=== PATIENT | female | born 1955 | race American Indian/Alaskan Native ===

== ENCOUNTER 2021-07-31 09:05 | Inpatient (IN) | payer MEDICARE ==
--- NOTE | 2021-07-31 09:57 | Emergency Department Report ---
HPI - General Chief Complaint: Dyspnea/Respdistress Time Seen by Provider: 07/31/21 09:28 - HPI HPI: 65-year-old -[place] female presents to the emergency department via EMS from home with complaint of shortness of breath. Patient says that she has been "sick" for a week with some upper respiratory type symptoms. She is not vaccinated against COVID-19. The patient arrives to our emergency department with a room air pulse ox of 84% and increased work of breathing. She has a past medical history of hypertension, oth-hmgjwyl-sassszrbq diabetes, and remote right-sided breast cancer. She has not taken anything for symptoms prior to presentation. She denies any tobacco or illicit drug use. She denies any fever, lower extremity swelling, chest pain. No recent travel or sick contacts at home. ED Past Medical Hx - Past Medical History Hx Hypertension: Yes Hx Congestive Heart Failure: Yes Hx Diabetes: Yes Hx Arthritis: Yes (RA) Additional medical history: Afib, Sleep apnea, - Surgical History Hx Cholecystectomy: Yes Additional Surgical History: Hysterectomy, x2, mastectomy - Social History Smoking Status: Unknown if ever smoked - Medications Home Medications: Home Medications Medication Instructions Recorded Confirmed Last Taken Type Ciprofloxacin HCl [Ciprofloxacin 500 mg PO BID #14 tablet 08/20/13 Unknown Rx TAB] Cyclobenzaprine [Flexeril] 10 mg PO TID PRN 08/20/13 08/20/13 Unknown History Fluconazole [Diflucan] 50 mg PO QDAY #3 tablet 08/20/13 Unknown Rx Insulin NPH/Regular [Novolin 70/30] 15 unit SQ BID #2 vial 08/20/13 Unknown Rx Naproxen [Naprosyn] 500 mg PO BID 08/20/13 08/20/13 Unknown History Nystatin [Nystop Powder] 0 gm TP QDAY #50 gm 08/20/13 Unknown Rx amLODIPine [Norvasc] 10 mg PO DAILY #60 tab 08/20/13 Unknown Rx traMADoL [Ultram] 50 mg PO Q4HR PRN 08/20/13 08/20/13 Unknown History ED Review of Systems ROS: Stated complaint: SOB Other details as noted in HPI Comment: All other systems reviewed and negative Constitutional: denies: chills, fever Eyes: denies: eye pain, vision change ENT: denies: ear pain, throat pain Respiratory: shortness of breath, SOB with exertion Cardiovascular: denies: chest pain, edema Gastrointestinal: nausea. denies: abdominal pain Genitourinary: denies: dysuria, discharge Musculoskeletal: denies: back pain, arthralgia Skin: denies: rash, lesions Neurological: denies: headache, weakness Physical Exam - Physical Exam Vital Signs: Vital Signs 07/31/21 07/31/21 09:10 09:34 Temperature 98.7 F Pulse Rate 113 H 101 H Respiratory 22 59 H Rate Blood Pressure 188/122 [Left] O2 Sat by Pulse 97 Oximetry Physical Exam: GENERAL: The patient is well-developed well-nourished. HENT: Normocephalic. Atraumatic. Patient has moist mucous membranes. EYES: Extraocular motions are intact. ual reactive to light bilaterally. NECK: Supple. Trachea is midline. CHEST/LUNGS: Rhonchi heard throughout the chest. There is tachypnea, accessory muscle use and conversational dyspnea. HEART/CARDIOVASCULAR: Regular. There is mild tachycardia. There is no murmur. ABDOMEN: Abdomen is soft, nontender. Patient has normal bowel sounds. Morbidly obese habitus. SKIN: Skin is warm and dry. NEURO: The patient is awake, alert, and oriented. The patient has no focal neurologic deficits. MUSCULOSKELETAL: There is no tenderness or deformity. There is no limitation range of motion. ED Course Vital Signs 07/31/21 07/31/21 09:10 09:34 Temperature 98.7 F Pulse Rate 113 H 101 H Respiratory 22 59 H Rate Blood Pressure 188/122 [Left] O2 Sat by Pulse 97 Oximetry - ABG Interpretation Ph: 7.35 PCO2: 41 PO2: 62 Bicarbonate: 90 Interpretation: other (Hypoxemia) - Intubation Time Out Performed: Yes Sedative: Etomidate Mg Given: 20 Paralytic: Succinylcholine Mg Given: 120 Laryngoscope: other (Jay scope) Size: 4 ET Tube Size: 7.5 Tube Secured Depth (cm): 24 Tube Secured Location: lips Tube Placement Confirmation: visualized tube passing t, equal breath sounds bilat, confirmation by capnometr Patient Tolerated Procedure: well Intubation Complications: none ED Medical Decision Making - Lab Data Result diagrams: 07/31/21 09:27 07/31/21 09:46 Lab Results 07/31/21 07/31/21 07/31/21 Range/Units 09:27 09:27 09:46 WBC 15.5 H (4.5-11.0) K/mm3 RBC 4.86 (3.65-5.03) M/mm3 Hgb 14.5 H (10.1-14.3) gm/dl Hct 44.7 H (30.3-42.9) % MCV 92 (79-97) fl MCH 30 (28-32) pg MCHC 33 (30-34) % RDW 14.6 (13.2-15.2) % PT 17.0 H (12.2-14.9) Sec. INR 1.25 H (0.87-1.13) APTT 31.5 (24.2-36.6) Sec. D-Dimer 2619.75 H (0-234) ng/mlDDU Sodium (137-145) mmol/L Potassium (3.6-5.0) mmol/L Chloride (98-107) mmol/L Carbon Dioxide (22-30) mmol/L Anion Gap mmol/L BUN (7-17) mg/dL Creatinine (0.6-1.2) mg/dL Estimated GFR ml/min BUN/Creatinine Ratio % Glucose (65-100) mg/dL POC Glucose (70-105) mg/dL Calcium (8.4-10.2) mg/dL Ferritin (10.0-200.0) ng/mL Total Bilirubin (0.1-1.2) mg/dL AST (5-40) units/L ALT (7-56) units/L Alkaline Phosphatase (35-129) units/L Lactate Dehydrogenase (91-180) units/L Troponin T 0.069 H (0.00-0.029) ng/mL C-Reactive Protein (0.00-1.30) mg/dL NT-Pro-B Natriuret Pep (0-900) pg/mL Total Protein (6.3-8.2) g/dL Albumin (3.9-5) g/dL Albumin/Globulin Ratio % Triglycerides 235 H (2-149) mg/dL Cholesterol 125 (50-199) mg/dL LDL Cholesterol Direct 50 (50-130) mg/dL HDL Cholesterol 29 L (40-59) mg/dL Cholesterol/HDL Ratio 4.31 % 07/31/21 07/31/21 07/31/21 Range/Units 09:46 10:48 11:09 WBC (4.5-11.0) K/mm3 RBC (3.65-5.03) M/mm3 Hgb (10.1-14.3) gm/dl Hct (30.3-42.9) % MCV (79-97) fl MCH (28-32) pg MCHC (30-34) % RDW (13.2-15.2) % PT (12.2-14.9) Sec. INR (0.87-1.13) APTT (24.2-36.6) Sec. D-Dimer (0-234) ng/mlDDU Sodium 135 L (137-145) mmol/L Potassium 4.2 (3.6-5.0) mmol/L Chloride 93.6 L (98-107) mmol/L Carbon Dioxide 17 L (22-30) mmol/L Anion Gap 29 mmol/L BUN 71 H (7-17) mg/dL Creatinine 2.7 H (0.6-1.2) mg/dL Estimated GFR 21 ml/min BUN/Creatinine Ratio 26 % Glucose 468 H (65-100) mg/dL POC Glucose 458 H (70-105) mg/dL Calcium 9.9 (8.4-10.2) mg/dL Ferritin 4832.0 H (10.0-200.0) ng/mL Total Bilirubin 1.20 (0.1-1.2) mg/dL AST 79 H (5-40) units/L ALT 39 (7-56) units/L Alkaline Phosphatase 85 (35-129) units/L Lactate Dehydrogenase (91-180) units/L Troponin T (0.00-0.029) ng/mL C-Reactive Protein (0.00-1.30) mg/dL NT-Pro-B Natriuret Pep 8486 H (0-900) pg/mL Total Protein 8.1 (6.3-8.2) g/dL Albumin 3.4 L (3.9-5) g/dL Albumin/Globulin Ratio 0.7 % Triglycerides (2-149) mg/dL Cholesterol (50-199) mg/dL LDL Cholesterol Direct (50-130) mg/dL HDL Cholesterol (40-59) mg/dL Cholesterol/HDL Ratio % 07/31/21 Range/Units 11:09 WBC (4.5-11.0) K/mm3 RBC (3.65-5.03) M/mm3 Hgb (10.1-14.3) gm/dl Hct (30.3-42.9) % MCV (79-97) fl MCH (28-32) pg MCHC (30-34) % RDW (13.2-15.2) % PT (12.2-14.9) Sec. INR (0.87-1.13) APTT (24.2-36.6) Sec. D-Dimer (0-234) ng/mlDDU Sodium (137-145) mmol/L Potassium (3.6-5.0) mmol/L Chloride (98-107) mmol/L Carbon Dioxide (22-30) mmol/L Anion Gap mmol/L BUN (7-17) mg/dL Creatinine (0.6-1.2) mg/dL Estimated GFR ml/min BUN/Creatinine Ratio % Glucose (65-100) mg/dL POC Glucose (70-105) mg/dL Calcium (8.4-10.2) mg/dL Ferritin (10.0-200.0) ng/mL Total Bilirubin (0.1-1.2) mg/dL AST (5-40) units/L ALT (7-56) units/L Alkaline Phosphatase (35-129) units/L Lactate Dehydrogenase 1809 H (91-180) units/L Troponin T (0.00-0.029) ng/mL C-Reactive Protein 32.70 H (0.00-1.30) mg/dL NT-Pro-B Natriuret Pep (0-900) pg/mL Total Protein (6.3-8.2) g/dL Albumin (3.9-5) g/dL Albumin/Globulin Ratio % Triglycerides (2-149) mg/dL Cholesterol (50-199) mg/dL LDL Cholesterol Direct (50-130) mg/dL HDL Cholesterol (40-59) mg/dL Cholesterol/HDL Ratio % - EKG Data -: EKG Interpreted by N[facility] EKG shows normal: sinus rhythm (PVCs), axis, intervals (Prolonged QTC), QRS complexes (LVH), ST-T waves Rate: tachycardia (102 bpm) - EKG Data When compared to previous EKG there are: previous EKG unavailable Interpretation: other (Sinus tachycardia 102 bpm, normal axis, PVCs, low vo ltage, LVH, prolonged QTC) - Radiology Data Radiology results: image reviewed interpreted by me: Chest x-ray shows bilateral patchy pulmonary opacities concerning for pneumonia. No pneumothorax. No widened mediastinum. - Medical Decision Making This patient presents to the emergency department with a complaint of increased shortness of breath after a 1 week history of some URI symptoms. The patient immediately is seen in respiratory distress with a pulse ox in the 70s on room air, shortness of breath, conversational dyspnea, accessory muscle use. The patient was placed on BiPAP with some transient improvement in her work of breathing and oxygenation. Chest x-ray shows bilateral patchy opacities concerning for pneumonia and consistent with previously seen COVID-19 infections. Patient's labs shows mild leukocytosis of 15,000, acute kidney injury with a GFR of about 25, slightly elevated troponin, elevated proBNP, and elevated inflammatory markers such as D-dimer, LDH, CRP and ferritin levels. Patient also has hyperglycemia without diabetic ketoacidosis. She was given IV antibiotics, insulin, Decadron. The patient had an ABG that shows hypoxemia. While the patient's oxygenation i mproved on the BiPAP, the work of breathing once again worsened and she was breathing at about 60 to 70 breaths/min. For these reasons the decision was made to intubate the patient and this was done as per the procedure section. Patient will be admitted to the ICU and was accepted for admission by the hospitalist, Dr. Barth. Critical Care Time: Yes Critical care time in (mins) excluding proc time.: 35 Critical care attestation.: If time is entered above; I have spent that time in minutes in the direct care of this critically ill patient, excluding procedure time. Critical care time spent on this patient in doing her initial evaluation, multiple reevaluations, ordering and interpretation of labs and imaging, suppl emental oxygen and BiPAP management for the hypoxia/hypoxemia, IV antibiotics, IV steroids, discussion with the hospitalist and pulmonology services. This does not include the separately billable procedure of intubation. Critical Care Time: 35 minutes ED Disposition Clinical Impression: Acute hypoxemic respiratory failure, Suspected 2019 novel coronavirus infection, Hypoxemia, Acute kidney injury (RHINA) with acute tubular necrosis (ATN), NSTEMI (non-ST elevated myocardial infarction), Pneumonia CHF (congestive heart failure) Qualifiers: Heart failure chronicity: acute on chronic Disposition: 09 ADMITTED INPATIENT Is pt being admited?: Yes Condition: Critical Time of Disposition: 16:25
[2021-07-31 10:17] LABS: Albumin 3.4 g/dL (3.9-5); Calcium 9.9 mg/dL (8.4-10.2)
[2021-07-31 10:18] LABS: Hematocrit 44.7 % (30.3-42.9); Hemoglobin 14.5 gm/dl (10.1-14.3); Mean Corpuscular HGB Conc 33 % (30-34); Mean Corpuscular Volume 92 fl (79-97); Red Blood Count 4.86 M/mm3 (3.65-5.03); Red Cell Distribution Width 14.6 % (13.2-15.2)
--- NOTE | 2021-07-31 10:22 | XRay Report ---
CHEST 1 VIEW 07/31/2021 9:16 AM INDICATION / CLINICAL INFORMATION: SOB. COMPARISON: None available. FINDINGS: SUPPORT DEVICES: None. HEART / MEDIASTINUM: No significant abnormality. LUNGS / PLEURA: Multifocal airspace opacities with obscuration of the left hemidiaphragm. No pneumoth orax. ADDITIONAL FINDINGS: No significant additional findings. IMPRESSION: 1. Multifocal airspace opacities concerning for pneumonia. Signer Name: Remi Ernst DO Signed: 07/31/2021 10:18 AM Workstation Name: [id number]
[2021-07-31] MEDS ORDERED: AZITHROMYCIN/NS 500 MG/250 ML 500 MG/250 ML BAG IV ONE (10:27)
[2021-07-31] MEDS ORDERED: INSULIN REGULAR, HUMAN 100 UNITS/1 ML IV ONE (10:28)
[2021-07-31] MEDS ORDERED: dexAMETHasone 4 MG/ML VIAL IV ONE (10:28)
[2021-07-31 10:34] LABS: INR 1.25 (0.87-1.13)
[2021-07-31 10:35] LABS: Partial Thromboplastin Time 31.5 Sec. (24.2-36.6)
[2021-07-31 11:03] LABS: Chol/HDL Ratio 4.31 %
--- NOTE | 2021-07-31 11:42 | History and Physical Report ---
History of Present Illness Chief complaint: I can't breathe History of present illness: 65 YO Female with Obesity Hypoventilation Syndrome, DM, RA, Paroxysmal Atrial Fib not taking therapeutic anticoagulation, HTN, CHF presents to ED for evaluation. Patient is intubated and on ventilatory support at the time my evaluation and is unable to provide history. Patient history taken from EMS staff, ED staff, as well as patient family was made available by telephone for interview. As per family the patient has been "feeling sick" for the past week and was found to have worsening shortness of breath today. EMS was notified and upon arrival the patient was found to be in distress with a pulse oximetry of 84% on room air. Patient was treated with supplemental oxygen and transported to [facility] for further care and evaluation of the aforementioned symptoms. The patient was seen and evaluated in the emergency department. All lab and imaging studies reviewed. The patient was found to have a pulse oximetry of 82% on room air and was subsequently treated with noninvasive positive pressure ventilation without improvement in symptoms. The patient was subsequently intubated for acute hypoxemic respiratory failure. Patient also found to have concomitant sepsis secondary to pneumonia, acute kidney injury, as well as uncontrolled diabetes, as well as NSTEMI. Patient admitted to ICU due to increased risk of multiple organ dysfunction syndrome. Patient initiated on sepsis protocol, pneumonia protocol, coronavirus protocol, as well as therapeutic anticoagulation for NSTEMI. Cardiology team consulted in ED. Critical care team consulted in ED. patient found to have poor prognosis. Advanced care planning conducted in ED. No reports of fever, chills, chest pain, palpitation, skin rash, recent ill contacts. Upon further questioning it is reported that the patient is not vaccinated against COVID-19. Past History Past Medical History: atrial fib, arthritis, diabetes, heart failure, hypertension Past Surgical History: , hysterectomy, mastectomy Social history: single. denies: smoking, alcohol abuse, prescription drug abuse Family history: diabetes, hypertension Medications and Allergies Allergies Allergy/AdvReac Type Severity Reaction Status Date / Time aspirin [From Percodan] Allergy Unknown Unverified 04/09/15 11:03 oxycodone HCl [From Percodan] Allergy Unknown Unverified 04/09/15 11:03 oxycodone terephthalate Allergy Unknown Unverified 04/09/15 11:03 [From Percodan] Penicillins Allergy Unknown Verified 08/20/13 14:46 Home Medications Medication Instructions Recorded Confirmed Last Taken Type Ciprofloxacin HCl [Ciprofloxacin 500 mg PO BID #14 tablet 08/20/13 Unknown Rx TAB] Cyclobenzaprine [Flexeril] 10 mg PO TID PRN 08/20/13 08/20/13 Unknown History Fluconazole [Diflucan] 50 mg PO QDAY #3 tablet 08/20/13 Unknown Rx Insulin NPH/Regular [Novolin 70/30] 15 unit SQ BID #2 vial 08/20/13 Unknown Rx Naproxen [Naprosyn] 500 mg PO BID 08/20/13 08/20/13 Unknown History Nystatin [Nystop Powder] 0 gm TP QDAY #50 gm 08/20/13 Unknown Rx amLODIPine [Norvasc] 10 mg PO DAILY #60 tab 08/20/13 Unknown Rx traMADoL [Ultram] 50 mg PO Q4HR PRN 08/20/13 08/20/13 Unknown History Review of Systems ROS unobtainable: due to endotracheal tube, due to mental status Exam - Constitutional Vitals: Temp Pulse Resp BP Pulse Ox 98.7 F 110 H 62 H 116/80 92 07/31/21 09:10 07/31/21 11:15 07/31/21 11:15 07/31/21 11:15 07/31/21 11:15 General appearance: Present: severe distress - EENT Eyes: Present: miosis ENT: hearing decreased - Neck Neck: Present: supple, normal ROM - Respiratory Respiratory effort: labored, accessory muscle use, stridor Respiratory: bilateral: diminished, rhonchi - Cardiovascular Rhythm: irregularly irregular Heart Sounds: Present: S1 & S2. Absent: rub, click - Extremities Extremities: pulses symmetrical Extremity abnormal: edema Peripheral Pulses: abnormal (Capillary refill greater than 3.5 seconds) - Abdominal General gastrointestinal: Present: soft, non-tender, non-distended, normal bowel sounds Female genitourinary: Present: normal - Integumentary Integumentary: Present: clear, warm, dry - Musculoskeletal Musculoskeletal: generalized weakness - Psychiatric Psychiatric: no appropriate mood/affect, no intact judgment & insight, no memory intact - Neurologic Neurologic: CNII-XII intact, moves all extremities, no gait normal HEART Score - HEART Score Troponin: Troponin T 0.069 ng/mL (0.00-0.029) H 10/15/21 09:27 Results - Labs CBC & Chem 7: 07/31/21 09:27 07/31/21 09:46 Labs: Abnormal lab results 07/31/21 07/31/21 07/31/21 Range/Units 09:27 09:27 09:46 WBC 15.5 H (4.5-11.0) K/mm3 Hgb 14.5 H (10.1-14.3) gm/dl Hct 44.7 H (30.3-42.9) % PT 17.0 H (12.2-14.9) Sec. INR 1.25 H (0.87-1.13) D-Dimer 2619.75 H (0-234) ng/mlDDU Sodium (137-145) mmol/L Chloride (98-107) mmol/L Carbon Dioxide (22-30) mmol/L BUN (7-17) mg/dL Creatinine (0.6-1.2) mg/dL Glucose (65-100) mg/dL POC Glucose (70-105) mg/dL AST (5-40) units/L Troponin T 0.069 H (0.00-0.029) ng/mL NT-Pro-B Natriuret Pep (0-900) pg/mL Albumin (3.9-5) g/dL Triglycerides 235 H (2-149) mg/dL HDL Cholesterol 29 L (40-59) mg/dL 07/31/21 07/31/21 Range/Units 09:46 10:48 WBC (4.5-11.0) K/mm3 Hgb (10.1-14.3) gm/dl Hct (30.3-42.9) % PT (12.2-14.9) Sec. INR (0.87-1.13) D-Dimer (0-234) ng/mlDDU Sodium 135 L (137-145) mmol/L Chloride 93.6 L (98-107) mmol/L Carbon Dioxide 17 L (22-30) mmol/L BUN 71 H (7-17) mg/dL Creatinine 2.7 H (0.6-1.2) mg/dL Glucose 468 H (65-100) mg/dL POC Glucose 458 H (70-105) mg/dL AST 79 H (5-40) units/L Troponin T (0.00-0.029) ng/mL NT-Pro-B Natriuret Pep 8486 H (0-900) pg/mL Albumin 3.4 L (3.9-5) g/dL Triglycerides (2-149) mg/dL HDL Cholesterol (40-59) mg/dL Assessment and Plan - Patient Problems (1) Sepsis Current Visit: Yes Status: Acute Plan to address problem: Sepsis protocol: Chest x-ray, CBC, CMP, urinalysis, IV antibiotic therapy, IV fluid resuscitation therapy, monitor urine output every shift, monitor fluid balance, maintain mean arterial pressure greater than or equal to 65, IV pressor support as clinically indicated, serial lactic acid level. The high probability of a clinically significant, sudden or life threatening deterioration of the [cardiac, pulmonary, renal, infectious disease, neuro] system(s) required my full and direct attention, intervention and personal management. The aggregate critical care time was [90] minutes. This time is in addition to time spent performing reported procedures but includes the following: [x] Data Review and interpretation [x] Patient assessment and monitoring of vital signs [x] Documentation [x] Medication orders and management (2) Acute hypoxemic respiratory failure Current Visit: Yes Status: Acute Plan to address problem: Chest x-ray, supplemental oxygen, pulse oximetry, patient intubated and on ventilatory support, wean vent as tolerated, daily spontaneous breathing trial, sedation holiday daily, ABG daily. (3) NSTEMI (non-ST elevated myocardial infarction) Current Visit: Yes Status: Acute Plan to address problem: Cardiology team consulted, therapeutic anticoagulation, further care and evaluation as per cardiology team. Echocardiogram ordered and pending at time of admission. (4) Pneumonia Current Visit: Yes Status: Acute Plan to address problem: Pneumonia protocol: Chest x-ray, CBC, CMP, IV antibiotic therapy, supplemental oxygen, pulse oximetry, blood culture. (5) Suspected 2019 novel coronavirus infection Current Visit: Yes Status: Acute Plan to address problem: Coronavirus protocol: IV steroid therapy, IV antibiotic therapy, supplemental oxygen, pulse oximetry, vitamin D therapy, vitamin C therapy, zinc therapy, therapeutic anticoagulation. (6) Acute kidney injury (RHINA) with acute tubular necrosis (ATN) Current Visit: Yes Status: Acute Plan to address problem: IV fluid resuscitation therapy, monitor urine output every shift, BMP, repeat BMP in a.m. to monitor serum creatinine as well as GFR. (7) CHF (congestive heart failure) Current Visit: Yes Status: Acute Qualifiers: Heart failure chronicity: acute on chronic Plan to address problem: Strict I/O, BMP, monitor urine output every shift, afterload reduction, blood pressure control, inotropic support as clinically indicated. Cardiology team consulted, echocardiogram ordered and is pending at time of admission. (8) DVT prophylaxis Current Visit: Yes Status: Acute Plan to address problem: SCD to bilateral lower extremities while in bed, therapeutic anticoagulation. (9) COVID-19 vaccination not done Current Visit: Yes Status: Acute Plan to address problem: Counseling completed. Patient high risk status discussed. (10) Advance care planning Current Visit: Yes Status: Acute Plan to address problem: Disease education conducted, care plan discussed, diagnoses discussed, prognosis discussed. Patient family knowledges poor prognosis and understand agree with care plan, patient is full code, +30 minutes.
[2021-07-31] MEDS ORDERED: ALBUTEROL 2.5 MG/3 ML NEBU IH PRN (11:44)
[2021-07-31] MEDS ORDERED: ONDANSETRON 4 MG/2 ML INJ IV PRN (11:44)
[2021-07-31] MEDS ORDERED: HYDROmorphone 1 MG/1 ML INJ IV PRN (11:44)
[2021-07-31] MEDS ORDERED: oxyCODONE /ACETAMINOPHEN 5-325MG TAB PO PRN (11:44)
[2021-07-31] MEDS ORDERED: ACETAMINOPHEN 325 MG TAB PO PRN ×2 (11:44)
[2021-07-31] MEDS ORDERED: SODIUM CHLORIDE 0.9% 1000 ML IV SOLN IV ONE (11:44)
[2021-07-31 11:53] LABS: C-Reactive Protein 32.7 mg/dL (0.00-1.30)
[2021-07-31] MEDS ORDERED: CYCLOBENZAPRINE 10 MG TAB PO PRN (12:00)
[2021-07-31 13:17] LABS: ABG HCO3 22.4 mmol/L (20.0-26.0); ABG Methemoglobin 0.6 % (0.0-1.5); ABG PCO2 41.5 mm Hg; ABG PH 7.351 pH Units (7.350-7.450); ABG PO2 62.5 mm Hg (80.0-90.0)
[2021-07-31] MEDS: methylPREDNISolone Sod Succinate 40 MG/1 ML INJ IV SCH ×2 (14:43→22:38)
[2021-07-31] MEDS ORDERED: KETAMINE 500 MG/5 ML VIAL MDV ONE (15:07)
[2021-07-31] MEDS ORDERED: ETOMIDATE 20 MG/10 ML INJ IV ONE ×2 (15:09→15:29)
[2021-07-31] MEDS ORDERED: SUCCINYLCHOLINE CHLORIDE 200 MG/10 ML INJ MDV ONE (15:09)
[2021-07-31] MEDS ORDERED: LIP THERAPY VASELINE TP PRN (15:23)
[2021-07-31] MEDS ORDERED: MINERAL OIL/PETROLATUM, WHITE OPHTH OINT 3.5 GM OU PRN (15:23)
[2021-07-31] MEDS ORDERED: MIDAZOLAM 2 MG/2 ML INJ IV PRN (15:23)
[2021-07-31] MEDS ORDERED: SUCCINYLCHOLINE CHLORIDE 200 MG/10 ML INJ MDV IV ONE (15:30)
[2021-07-31] MEDS ORDERED: MIDAZOLAM 5 MG/5 ML INJ MDV IV ONE (15:33)
[2021-07-31] MEDS ORDERED: HEPARIN 10,000 UNITS/10 ML VIAL IV ONE (15:35)
[2021-07-31] MEDS ORDERED: HEPARIN 10,000 UNITS/10 ML VIAL IV PRN (15:35)
--- NOTE | 2021-07-31 15:42 | Consultation ---
History of Present Illness Consult date: 07/31/21 Requesting physician: JACOB RAINES Reason for consult: other (critical care management, acute hypoxic resp failure, Possible COVID, bilateral pneumonia) History of present illness: 65-year-old female past medical history obesity, diabetes, rheumatoid arthritis, paroxysmal A. fib noton therapeutic anticoagulation,, CHF presented to hospital after feeling unwell for the past week with worsening shortness of breath. She is in respiratopry distress on BIPAP via FFM, history is obtained from review of the medical records and from the ED physician. She is not vaccinated against Covid. HISTORY PER MEDICAL RECORDS As per family the patient has been "feeling sick" for the past week and was f ound to have worsening shortness of breath today. EMS was notified and upon arrival the patient was found to be in distress with a pulse oximetry of 84% on room air. Patient was treated with supplemental oxygen and transported to [facility] for further care and evaluation of the aforementioned symptoms. The patient was seen and evaluated in the emergency department. All lab and imaging studies reviewed. The patient was found to have a pulse oximetry of 82% on room air and was subsequently treated with noninvasive positive pressure ventilation without improvement in symptoms. Patient also found to have concomitant sepsis secondary to pneumonia, acute kidney injury, as well as uncontrolled diabetes, as well as NSTEMI. Patient admitted to ICU due to increased risk of multiple organ dysfunction syndrome. Patient initiated on sepsis protocol, pneumonia protocol, coronavirus protocol, as well as therapeutic anticoagulation for NSTEMI. No reports of fever, chills, chest pain, palpitation, skin rash, recent ill contacts. Upon further questioning it is reported that the patient is not vacci nated against COVID-19. Afebrile, tachycardic, tachypneic. White count 15.5. Covid PCR pending. Decreased renal function with estimated GFR 21. Blood cultures no growth so far. Currently on Levofloxacin and methylprednisolone. Elevated inflammatory markers. Unable to obtain review of systems, patient is in respiratory distress and NIPPV Imaging personally reviewed: Chest x-ray: Multifocal airspace disease, low lung volumes Past History Past Medical History: arthritis, diabetes Medications and Allergies Allergies Allergy/AdvReac Type Severity Reaction Status Date / Time aspirin [From Percodan] Allergy Unknown Unverified 04/09/15 11:03 oxycodone HCl [From Percodan] Allergy Unknown Verified 08/01/21 11:12 oxycodone terephthalate Allergy Unknown Verified 08/01/21 11:12 [From Percodan] Penicillins Allergy Unknown Verified 08/20/13 14:46 Home Medications Medication Instructions Recorded Confirmed Last Taken Type Ciprofloxacin HCl [Ciprofloxacin 500 mg PO BID #14 tablet 08/20/13 Unknown Rx TAB] Cyclobenzaprine [Flexeril] 10 mg PO TID PRN 08/20/13 08/20/13 Unknown History Fluconazole [Diflucan] 50 mg PO QDAY #3 tablet 08/20/13 Unknown Rx Insulin NPH/Regular [Novolin 70/30] 15 unit SQ BID #2 vial 08/20/13 Unknown Rx Naproxen [Naprosyn] 500 mg PO BID 08/20/13 08/20/13 Unknown History Nystatin [Nystop Powder] 0 gm TP QDAY #50 gm 08/20/13 Unknown Rx amLODIPine [Norvasc] 10 mg PO DAILY #60 tab 08/20/13 Unknown Rx traMADoL [Ultram] 50 mg PO Q4HR PRN 08/20/13 08/20/13 Unknown History Active Meds: Active Medications Acetaminophen (Acetaminophen 325 Mg Tab) 650 mg PO Q4H PRN PRN Reason: Pain MILD(1-3)/Fever >100.5/PIERCE Albuterol (Albuterol 2.5 Mg/3 Ml Nebu) 2.5 mg IH Q4HRT PRN PRN Reason: Shortness Of Breath Ascorbic Acid (Ascorbic Acid 500 Mg Tab) 500 mg PO BID [facility] Cholecalciferol (Cholecalciferol (Vit D3) 400 Unit Tab) 1,000 unit PO QDAY [facility] Cyclobenzaprine HCl (Cyclobenzaprine 10 Mg Tab) 10 mg PO TID PRN PRN Reason: MUSCLE PAIN/SPASMS Famotidine (Famotidine 20 Mg/2 Ml Inj) 20 mg IV BID [facility] Heparin Sodium (Porcine) (Heparin 10,000 Units/10 Ml Vial) 6,800 unit 60 u nit/kg (6800 unit) IV ONCE ONE Stop: 07/31/21 15:36 Heparin Sodium (Porcine) (Heparin 10,000 Units/10 Ml Vial) 4,500 unit 40 unit/kg (4500 unit) IV Q6H PRN PRN Reason: Anti-Xa Assay < 0.1 units/ml Hydromorphone HCl (Hydromorphone 1 Mg/1 Ml Inj) 0.25 mg IV Q4H PRN PRN Reason: Pain, Moderate (4-6) Hydromorphone HCl (Hydromorphone 1 Mg/1 Ml Inj) 0.5 mg IV Q23H PRN PRN Reason: Pain , Severe (7-10) Hydrophilic Ointment (Lip Therapy Vaseline) 1 applic TP Q2HR PRN PRN Reason: Dry Lips Levofloxacin/Dextrose (Levaquin 750mg/150ml) 750 mg in 150 mls @ 100 mls/hr IV Q48H TRISTEN; Protocol Sodium Chloride (Nacl 0.9% 1000 Ml) 1,000 mls @ 100 mls/hr IV DIRECT [facility]ST[facility] Heparin Sodium/Sodium Chloride (Heparin/ 0.45% Nacl-25,000 Unit/500 Ml) 25,000 unit in 500 mls @ 34.019 mls/hr IV TITRATE TRISTEN; Protocol Propofol (Diprivan 10 Mg/Ml) 1,000 mg in 100 mls @ 3.402 mls/hr IV TITR TRISTEN; Protocol Methylprednisolone Sodium Succinate (Methylprednisolone Sod Succinate 40 Mg/1 Ml Inj) 40 mg IV Q8HR TRISTEN Last Admin: 07/31/21 14:43 Dose: 40 mg Documented by: Multi-Ingred Cream/Lotion/Oil/Oint (Mineral Oil/Petrolatum, White Ophth Oint 3.5 Gm) 1 applic OU Q4HR PRN PRN Reason: Dry Eye(s) Ondansetron HCl (Ondansetron 4 Mg/2 Ml Inj) 4 mg IV Q8H PRN PRN Reason: Nausea And Vomiting Oxycodone/Acetaminophen (Oxycodone /Acetaminophen 5-325mg Tab) 1 tab PO Q16H PRN PRN Reason: Pain, Moderate (4-6) Senna/Docusate Sodium (Sennosides/Docusate Sodium 8.6/50 Mg Tab) 1 tab FEEDTUBE BID [facility] Sodium Chloride (Sodium Chloride 0.9% 10 Ml Flush Syringe) 10 ml IV BID [facility] Sodium Chloride (Sodium Chloride 0.9% 10 Ml Flush Syringe) 10 ml IV PRN PRN PRN Reason: LINE FLUSH Zinc Sulfate (Zinc Sulfate 220 Mg Cap) 220 mg PO BID [facility] Physical Examination Vital signs: Vital Signs Temp Pulse Resp BP Pulse Ox 98.7 F 113 H 22 188/122 97 07/31/21 09:10 07/31/21 09:10 07/31/21 09:10 07/31/21 09:10 07/31/21 09:10 General appearance: appears uncomfortable, other (moderate distress, abdominal breathing on NIPPV via FFM) Eyes: non-icteric Neck: supple, no lymphadenopathy, no JVD, other (short neck) Effort: very labored Ascultation: Bilateral: diminished breath sounds, rhonchi Cardiovascular: irregular rhythm, other (S1,S2) Gastrointestinal: normoactive bowel sounds, soft, non-tender, non-distended Integumentary: normal Extremities: no cyanosis, no edema Musculoskeletal: no deformities non-focal exam, pupils equal and round anxious Results - Laboratory Findings CBC and BMP: 08/02/21 03:49 08/02/21 03:49 ABG ABG pH 7.351 pH Units (7.350-7.450) 07/31/21 13:03 ABG pCO2 41.5 mm Hg 07/31/21 13:03 ABG pO2 62.5 mm Hg (80.0-90.0) L 07/31/21 13:03 ABG O2 Saturation 90.0 % (95.0-99.0) L 07/31/21 13:03 PT/INR, D-dimer PT 17.0 Sec. (12.2-14.9) H 07/31/21 09:46 INR 1.25 (0.87-1.13) H 07/31/21 09:46 D-Dimer 2619.75 ng/mlDDU (0-234) H 07/31/21 09:46 Abnormal lab findings: Abnormal Labs 07/31/21 07/31/21 07/31/21 09:27 09:27 09:46 WBC 15.5 H Hgb 14.5 H Hct 44.7 H PT 17.0 H INR 1.25 H D-Dimer 2619.75 H ABG pO2 ABG O2 Saturation ABG Base Excess Oxyhemoglobin Sodium Chloride Carbon Dioxide BUN Creatinine Glucose POC Glucose Ferritin AST Lactate Dehydrogenase Troponin T 0.069 H C-Reactive Protein NT-Pro-B Natriuret Pep Albumin Triglycerides 235 H HDL Cholesterol 29 L 07/31/21 07/31/21 07/31/21 09:46 10:48 11:09 WBC Hgb Hct PT INR D-Dimer ABG pO2 ABG O2 Saturation ABG Base Excess Oxyhemoglobin Sodium 135 L Chloride 93.6 L Carbon Dioxide 17 L BUN 71 H Creatinine 2.7 H Glucose 468 H POC Glucose 458 H Ferritin 4832.0 H AST 79 H Lactate Dehydrogenase Troponin T C-Reactive Protein NT-Pro-B Natriuret Pep 8486 H Albumin 3.4 L Triglycerides HDL Cholesterol 07/31/21 07/31/21 11:09 13:03 WBC Hgb Hct PT INR D-Dimer ABG pO2 62.5 L ABG O2 Saturation 90.0 L ABG Base Excess -3.0 L Oxyhemoglobin 88.3 L Sodium Chloride Carbon Dioxide BUN Creatinine Glucose POC Glucose Ferritin AST Lactate Dehydrogenase 1809 H Troponin T C-Reactive Protein 32.70 H NT-Pro-B Natriuret Pep Albumin Triglycerides HDL Cholesterol - Diagnostic Findings Chest x-ray: image reviewed Assessment and Plan Acute hypoxemic respiratory failure Bilateral pneumonia, Sepsis Acute renal failure, unknown baseline GFR/Creatinine NSTEMI- possible type 2 ischemia Obesity PUI-COVID Discussion -The patient is in moderate respiratory distress, with abdominal breathing, tachypnic RR > 35 on NIPPV. Discussed with the ED physician, and I called the patient's daughter Giovanni Jordan( [phone]) who is listed as emergency contact. The patient needs oral intubation and mechanical ventilatory support. The patient's daughter verbalized understanding and all her questions were answered. -Patient is to continue airborne and contact isolation for presumed COVID infection, while awaiting COVID PCR -Add azithromycin to Levofloxacin fro severe CAP, patient has a documented Penicillin allergy. Recommendations -Sepsis protocol: Chest x-ray, CBC, CMP, urinalysis, IV antibiotic therapy, IV fluid resuscitation therapy, monitor urine output every shift, monitor fluid balance, maintain mean arterial pressure greater than or equal to 65, IV pressor support as clinically indicated, serial lactic acid level. - Place Asher catheter for accurate intake and output in critically ill patient Once intubated - VAP bundle , (HOB > 40 degrees) - glycemic control with SSI for target BG 140-180 mg while critically ill; avoid hypoglycemia -Place OGT/NGT fro enteric nutritional support - Lung protective strategies - bronchodilators with pulmonary hygiene per RT - avoid nephrotoxins, renally dose all medications. Avoid NSAIDs - prn analgesia per CPOT pain score -Sedation with Fentanyl/Propofol, titrate to RASS -1 to -2 - Maintenance of sleep-wake cycle, avoid delirium - supportive transfusions for serum Hb < 7.0g/dl - Stress ulcer prophylaxis- Famotidine -VTE prophylaxis- therapeutic heparin ordered by Cardiology for NSTEMI/paroxysmal Atrial fibrillation - mobility protocols for pressure ulcer prevention - Monitor hemodynamics closely COVID SPECIFIC INTERVENTIONS -systemic steroids empirically - follow COVID tests results - Continue contact and airborne isolation CONDITION: CRITICAL PROGNOSIS: GUARDED CODE STATUS: FULL CODE The high probability of a clinically significant, sudden or life-threatening deterioration of the [respiratory, cardiovascular, renal ] system(s) required my full and direct attention, intervention and personal management. The aggregate critical care time was [75] minutes without overlap. Time includes spent on; [x] Data Review and interpretation [x] Patient assessment and monitoring of vital signs [x] Documentation [x] Medication orders and management
[2021-07-31] MEDS ORDERED: DEXTROSE 50% IN WATER (25GM) 50 ML SYRINGE IV PRN (16:00)
[2021-07-31] MEDS ORDERED: MIDAZOLAM 100 MG in SODIUM CHLORIDE 0.9% 80 ML IV SCH (16:00)
--- NOTE | 2021-07-31 16:05 | Consultation ---
History of Present Illness Consult date: 07/31/21 Requesting physician: JACOB RAINES Consult reason: congestive heart failure History of present illness: Patient is 65-year-old female with Obesity Hypoventilation Syndrome, DM, RA, Paroxysmal Atrial Fib not taking therapeutic anticoagulation, HTN, CHF who presents to the ED with a complaint of feeling sick and increasing shortness of for the past week. History is taken per per the chart due to patient being intubated at time of interview. Per documentation EMS found the patient to be in respiratory distress with a pulse ox of 84% patient was transferred to [facility]. ED work-up found the patient to be sepsis secondary to pneumonia RHINA and elevated troponins and elevated BNP. Patient is a PUI. Patient was previously unknown to our practice. Cardiology was consulted for heart failure Past History Past Medical History: atrial fib, arthritis, diabetes, heart failure, hypertension Past Surgical History: , hysterectomy, mastectomy Social history: single. denies: smoking, alcohol abuse, prescription drug abuse Family history: diabetes, hypertension Medications and Allergies Allergies Allergy/AdvReac Type Severity Reaction Status Date / Time aspirin [From Percodan] Allergy Unknown Unverified 04/09/15 11:03 oxycodone HCl [From Percodan] Allergy Unknown Unverified 04/09/15 11:03 oxycodone terephthalate Allergy Unknown Unverified 04/09/15 11:03 [From Percodan] Penicillins Allergy Unknown Verified 08/20/13 14:46 Home Medications Medication Instructions Recorded Confirmed Last Taken Type Ciprofloxacin HCl [Ciprofloxacin 500 mg PO BID #14 tablet 08/20/13 Unknown Rx TAB] Cyclobenzaprine [Flexeril] 10 mg PO TID PRN 08/20/13 08/20/13 Unknown History Fluconazole [Diflucan] 50 mg PO QDAY #3 tablet 08/20/13 Unknown Rx Insulin NPH/Regular [Novolin 70/30] 15 unit SQ BID #2 vial 08/20/13 Unknown Rx Naproxen [Naprosyn] 500 mg PO BID 08/20/13 08/20/13 Unknown History Nystatin [Nystop Powder] 0 gm TP QDAY #50 gm 08/20/13 Unknown Rx amLODIPine [Norvasc] 10 mg PO DAILY #60 tab 08/20/13 Unknown Rx traMADoL [Ultram] 50 mg PO Q4HR PRN 08/20/13 08/20/13 Unknown History Active Meds: Active Medications Acetaminophen (Acetaminophen 325 Mg Tab) 650 mg PO Q4H PRN PRN Reason: Pain MILD(1-3)/Fever >100.5/PIERCE Albuterol (Albuterol 2.5 Mg/3 Ml Nebu) 2.5 mg IH Q4HRT PRN PRN Reason: Shortness Of Breath Ascorbic Acid (Ascorbic Acid 500 Mg Tab) 500 mg PO BID [facility] Cholecalciferol (Cholecalciferol (Vit D3) 400 Unit Tab) 1,000 unit PO QDAY [facility] Cyclobenzaprine HCl (Cyclobenzaprine 10 Mg Tab) 10 mg PO TID PRN PRN Reason: MUSCLE PAIN/SPASMS Dextrose (Dextrose 50% In Water (25gm) 50 Ml Syringe) 50 ml IV Q30MIN PRN; Protocol PRN Reason: Hypoglycemia Famotidine (Famotidine 20 Mg/2 Ml Inj) 20 mg IV BID [facility] Heparin Sodium (Porcine) (Heparin 10,000 Units/10 Ml Vial) 4,500 unit 40 unit/k g (4500 unit) IV Q6H PRN PRN Reason: Anti-Xa Assay < 0.1 units/ml Hydromorphone HCl (Hydromorphone 1 Mg/1 Ml Inj) 0.25 mg IV Q4H PRN PRN Reason: Pain, Moderate (4-6) Hydromorphone HCl (Hydromorphone 1 Mg/1 Ml Inj) 0.5 mg IV Q23H PRN PRN Reason: Pain , Severe (7-10) Hydrophilic Ointment (Lip Therapy Vaseline) 1 applic TP Q2HR PRN PRN Reason: Dry Lips Levofloxacin/Dextrose (Levaquin 750mg/150ml) 750 mg in 150 mls @ 100 mls/hr IV Q48H TRISTEN; Protocol Sodium Chloride (Nacl 0.9% 1000 Ml) 1,000 mls @ 100 mls/hr IV DIRECT [facility] Heparin Sodium/Sodium Chloride (Heparin/ 0.45% Nacl-25,000 Unit/500 Ml) 25,000 unit in 500 mls @ 20 mls/hr IV TITRATE [facility]ST[facility]; Protocol Propofol (Diprivan 10 Mg/Ml) 1,000 mg in 100 mls @ 3.402 mls/hr IV TITR TRISTEN; Protocol Insulin Human Lispro (Insulin Lispro 100 Unit/Ml) 0 unit SUB-Q Q6HR TRISTEN; Protocol Methylprednisolone Sodium Succinate (Methylprednisolone Sod Succinate 40 Mg/1 Ml Inj) 40 mg IV Q8HR TRISTEN Last Admin: 07/31/21 14:43 Dose: 40 mg Documented by: Multi-Ingred Cream/Lotion/Oil/Oint (Mineral Oil/Petrolatum, White Ophth Oint 3.5 Gm) 1 applic OU Q4HR PRN PRN Reason: Dry Eye(s) Ondansetron HCl (Ondansetron 4 Mg/2 Ml Inj) 4 mg IV Q8H PRN PRN Reason: Nausea And Vomiting Oxycodone/Acetaminophen (Oxycodone /Acetaminophen 5-325mg Tab) 1 tab PO Q16H PRN PRN Reason: Pain, Moderate (4-6) Senna/Docusate Sodium (Sennosides/Docusate Sodium 8.6/50 Mg Tab) 1 tab FEEDTUBE BID [facility] Sodium Chloride (Sodium Chloride 0.9% 10 Ml Flush Syringe) 10 ml IV BID [facility] Sodium Chloride (Sodium Chloride 0.9% 10 Ml Flush Syringe) 10 ml IV PRN PRN PRN Reason: LINE FLUSH Zinc Sulfate (Zinc Sulfate 220 Mg Cap) 220 mg PO BID [facility] Review of Systems ROS unobtainable: due to endotracheal tube Physical Examination Vital Signs Temp Pulse Resp BP Pulse Ox 98.7 F 113 H 22 188/122 97 07/31/21 09:10 07/31/21 09:10 07/31/21 09:10 07/31/21 09:10 07/31/21 09:10 General appearance: other (intubated ) HEENT: Positive: PERRL Cardiac: Positive: Regular Rhythm, Tachycardia Lungs: Positive: Ventilated Respirations Neuro: Positive: Other (unabel to asess) Abdomen: Positive: Soft Skin: Negative: Rash, Suspicious Lesions, Ulceration Extremities: Present: upper extr. pulses, lower extr. pulses Results 07/31/21 09:27 07/31/21 09:46 Cardiac Enzymes 07/31/21 07/31/21 Range/Units 09:46 11:09 AST 79 H (5-40) units/L Lactate Dehydrogenase 1809 H (91-180) units/L Coagulation 07/31/21 Range/Units 09:46 PT 17.0 H (12.2-14.9) Sec. INR 1.25 H (0.87-1.13) APTT 31.5 (24.2-36.6) Sec. Lipids 07/31/21 Range/Units 09:27 Triglycerides 235 H (2-149) mg/dL Cholesterol 125 (50-199) mg/dL HDL Cholesterol 29 L (40-59) mg/dL Cholesterol/HDL Ratio 4.31 % CBC 07/31/21 Range/Units 09:27 WBC 15.5 H (4.5-11.0) K/mm3 RBC 4.86 (3.65-5.03) M/mm3 Hgb 14.5 H (10.1-14.3) gm/dl Hct 44.7 H (30.3-42.9) % Comprehensive Metabolic Panel 07/31/21 Range/Units 09:46 Sodium 135 L (137-145) mmol/L Potassium 4.2 (3.6-5.0) mmol/L Chloride 93.6 L (98-107) mmol/L Carbon Dioxide 17 L (22-30) mmol/L BUN 71 H (7-17) mg/dL Creatinine 2.7 H (0.6-1.2) mg/dL Glucose 468 H (65-100) mg/dL Calcium 9.9 (8.4-10.2) mg/dL AST 79 H (5-40) units/L ALT 39 (7-56) units/L Alkaline Phosphatase 85 (35-129) units/L Total Protein 8.1 (6.3-8.2) g/dL Albumin 3.4 L (3.9-5) g/dL - Imaging and Cardiology Echo: pending EKG interpretations - Telemetry EKG Rhythm: Sinus Tachycardia - EKG Sinus rhythms and dysrhythmias: sinus tachycardia Ventricular dysrhythmias: ventricular premature com Assessment and Plan EKG shows sinus tach probable LVH PVCs no acute ischemic changes Troponins and BNP noted to be elevated Elevated D-dimer noted Covid PCR pending Echo pending. Heparin drip for anticoagulation Recommend IV fluids due to RHINA, sepsis, and low BPs recommend heparin drip for anticoagulation Patient seen in conjunction with Dr. Clay who agrees with plan of care. Will continue to follow - Patient Problems (1) Acute hypoxemic respiratory failure Current Visit: Yes Status: Acute (2) Acute kidney injury (RHINA) with acute tubular necrosis (ATN) Current Visit: Yes Status: Acute (3) CHF (congestive heart failure) Current Visit: Yes Status: Acute Qualifiers: Heart failure chronicity: acute on chronic (4) NSTEMI (non-ST elevated myocardial infarction) Current Visit: Yes Status: Acute (5) Pneumonia Current Visit: Yes Status: Acute (6) Sepsis Current Visit: Yes Status: Acute (7) Suspected 2019 novel coronavirus infection Current Visit: Yes Status: Acute
--- NOTE | 2021-07-31 16:10 | Consultation ---
History of Present Illness - Reason for Consult Consult date: 07/31/21 - History of Present Illness 65-year-old female past medical history obesity, diabetes, rheumatoid arthritis, paroxysmal A. fib, CHF presented to hospital after feeling unwell for the past week with worsening shortness of breath. She is currently debated and sedated, especially history is obtained from the chart. She was found to be hypoxic on admission. She is not vaccinated against Covid. Afebrile, tachycardic, tachypneic. White count 15.5. Covid PCR pending. Decreased renal function with estimated GFR 21. Blood cultures no growth so far. Currently on Levaquin and methylprednisolone. Elevated inflammatory markers. Imaging personally reviewed: Chest x-ray: Multifocal airspace disease Review of systems: Deferred to reduce to the risk of transmission of COVID-19 Past History Past Medical History: atrial fib, arthritis, diabetes, heart failure, hypertension Past Surgical History: , hysterectomy, mastectomy Social history: single. denies: smoking, alcohol abuse, prescription drug abuse Family history: diabetes, hypertension Medications and Allergies Allergies Allergy/AdvReac Type Severity Reaction Status Date / Time aspirin [From Percodan] Allergy Unknown Unverified 04/09/15 11:03 oxycodone HCl [From Percodan] Allergy Unknown Unverified 04/09/15 11:03 oxycodone terephthalate Allergy Unknown Unverified 04/09/15 11:03 [From Percodan] Penicillins Allergy Unknown Verified 08/20/13 14:46 Home Medications Medication Instructions Recorded Confirmed Last Taken Type Ciprofloxacin HCl [Ciprofloxacin 500 mg PO BID #14 tablet 08/20/13 Unknown Rx TAB] Cyclobenzaprine [Flexeril] 10 mg PO TID PRN 08/20/13 08/20/13 Unknown History Fluconazole [Diflucan] 50 mg PO QDAY #3 tablet 08/20/13 Unknown Rx Insulin NPH/Regular [Novolin 70/30] 15 unit SQ BID #2 vial 08/20/13 Unknown Rx Naproxen [Naprosyn] 500 mg PO BID 08/20/13 08/20/13 Unknown History Nystatin [Nystop Powder] 0 gm TP QDAY #50 gm 08/20/13 Unknown Rx amLODIPine [Norvasc] 10 mg PO DAILY #60 tab 08/20/13 Unknown Rx traMADoL [Ultram] 50 mg PO Q4HR PRN 08/20/13 08/20/13 Unknown History Active Meds: Active Medications Acetaminophen (Acetaminophen 325 Mg Tab) 650 mg PO Q4H PRN PRN Reason: Pain MILD(1-3)/Fever >100.5/PIERCE Albuterol (Albuterol 2.5 Mg/3 Ml Nebu) 2.5 mg IH Q4HRT PRN PRN Reason: Shortness Of Breath Ascorbic Acid (Ascorbic Acid 500 Mg Tab) 500 mg PO BID TRISTEN Cholecalciferol (Cholecalciferol (Vit D3) 400 Unit Tab) 1,000 unit PO QDAY TRISTEN Cyclobenzaprine HCl (Cyclobenzaprine 10 Mg Tab) 10 mg PO TID PRN PRN Reason: MUSCLE PAIN/SPASMS Dextrose (Dextrose 50% In Water (25gm) 50 Ml Syringe) 50 ml IV Q30MIN PRN; Protocol PRN Reason: Hypoglycemia Famotidine (Famotidine 20 Mg/2 Ml Inj) 20 mg IV BID [facility] Heparin Sodium (Porcine) (Heparin 10,000 Units/10 Ml Vial) 4,500 unit 40 unit/kg (4500 unit) IV Q6H PRN PRN Reason: Anti-Xa Assay < 0.1 units/ml Hydromorphone HCl (Hydromorphone 1 Mg/1 Ml Inj) 0.25 mg IV Q4H PRN PRN Reason: Pain, Moderate (4-6) Hydromorphone HCl (Hydromorphone 1 Mg/1 Ml Inj) 0.5 mg IV Q23H PRN PRN Reason: Pain , Severe (7-10) Hydrophilic Ointment (Lip Therapy Vaseline) 1 applic TP Q2HR PRN PRN Reason: Dry Lips Levofloxacin/Dextrose (Levaquin 750mg/150ml) 750 mg in 150 mls @ 100 mls/hr IV Q48H TRISTEN; Protocol Sodium Chloride (Nacl 0.9% 1000 Ml) 1,000 mls @ 100 mls/hr IV DIRECT TRISTEN Heparin Sodium/Sodium Chloride (Heparin/ 0.45% Nacl-25,000 Unit/500 Ml) 25,000 unit in 500 mls @ 20 mls/hr IV TITRATE TRISTEN; Protocol Propofol (Diprivan 10 Mg/Ml) 1,000 mg in 100 mls @ 3.402 mls/hr IV TITR TRISTEN; Protocol Insulin Human Lispro (Insulin Lispro 100 Unit/Ml) 0 unit SUB-Q Q6HR TRISTEN; Protocol Methylprednisolone Sodium Succinate (Methylprednisolone Sod Succinate 40 Mg/1 Ml Inj) 40 mg IV Q8HR TRISTEN Last Admin: 07/31/21 14:43 Dose: 40 mg Documented by: Multi-Ingred Cream/Lotion/Oil/Oint (Mineral Oil/Petrolatum, White Ophth Oint 3.5 Gm) 1 applic OU Q4HR PRN PRN Reason: Dry Eye(s) Ondansetron HCl (Ondansetron 4 Mg/2 Ml Inj) 4 mg IV Q8H PRN PRN Reason: Nausea And Vomiting Oxycodone/Acetaminophen (Oxycodone /Acetaminophen 5-325mg Tab) 1 tab PO Q16H PRN PRN Reason: Pain, Moderate (4-6) Senna/Docusate Sodium (Sennosides/Docusate Sodium 8.6/50 Mg Tab) 1 tab FEEDTUBE BID TRISTEN Sodium Chloride (Sodium Chloride 0.9% 10 Ml Flush Syringe) 10 ml IV BID TRISETN Sodium Chloride (Sodium Chloride 0.9% 10 Ml Flush Syringe) 10 ml IV PRN PRN PRN Reason: LINE FLUSH Zinc Sulfate (Zinc Sulfate 220 Mg Cap) 220 mg PO BID TRISTEN Physical Examination - Physical Exam Narrative exam: Physical exam deferred to reduce risk of transmission of COVID-19. Please refer to primary team's note. - Constitutional Vitals: Vital Signs Temp Pulse Resp BP Pulse Ox 98.7 F 101 H 60 H 105/63 91 07/31/21 09:10 07/31/21 12:40 07/31/21 12:40 07/31/21 12:40 07/31/21 12:40 Temperature -Last 24 Hours Temperature 98.7 F Results - Labs CBC & Chem 7: 07/31/21 09:27 07/31/21 09:46 Labs: Abnormal lab results 07/31/21 07/31/21 07/31/21 Range/Units 09:27 09:27 09:46 WBC 15.5 H (4.5-11.0) K/mm3 Hgb 14.5 H (10.1-14.3) gm/dl Hct 44.7 H (30.3-42.9) % PT 17.0 H (12.2-14.9) Sec. INR 1.25 H (0.87-1.13) D-Dimer 2619.75 H (0-234) ng/mlDDU ABG pO2 (80.0-90.0) mm Hg ABG O2 Saturation (95.0-99.0) % ABG Base Excess (-2.0-3.0) mmol/L Oxyhemoglobin (95.0-99.0) % Sodium (137-145) mmol/L Chloride (98-107) mmol/L Carbon Dioxide (22-30) mmol/L BUN (7-17) mg/dL Creatinine (0.6-1.2) mg/dL Glucose (65-100) mg/dL POC Glucose (70-105) mg/dL Ferritin (10.0-200.0) ng/mL AST (5-40) units/L Lactate Dehydrogenase (91-180) units/L Troponin T 0.069 H (0.00-0.029) ng/mL C-Reactive Protein (0.00-1.30) mg/dL NT-Pro-B Natriuret Pep (0-900) pg/mL Albumin (3.9-5) g/dL Triglycerides 235 H (2-149) mg/dL HDL Cholesterol 29 L (40-59) mg/dL 07/31/21 07/31/21 07/31/21 Range/Units 09:46 10:48 11:09 WBC (4.5-11.0) K/mm3 Hgb (10.1-14.3) gm/dl Hct (30.3-42.9) % PT (12.2-14.9) Sec. INR (0.87-1.13) D-Dimer (0-234) ng/mlDDU ABG pO2 (80.0-90.0) mm Hg ABG O2 Saturation (95.0-99.0) % ABG Base Excess (-2.0-3.0) mmol/L Oxyhemoglobin (95.0-99.0) % Sodium 135 L (137-145) mmol/L Chloride 93.6 L (98-107) mmol/L Carbon Dioxide 17 L (22-30) mmol/L BUN 71 H (7-17) mg/dL Creatinine 2.7 H (0.6-1.2) mg/dL Glucose 468 H (65-100) mg/dL POC Glucose 458 H (70-105) mg/dL Ferritin 4832.0 H (10.0-200.0) ng/mL AST 79 H (5-40) units/L Lactate Dehydrogenase (91-180) units/L Troponin T (0.00-0.029) ng/mL C-Reactive Protein (0.00-1.30) mg/dL NT-Pro-B Natriuret Pep 8486 H (0-900) pg/mL Albumin 3.4 L (3.9-5) g/dL Triglycerides (2-149) mg/dL HDL Cholesterol (40-59) mg/dL 07/31/21 07/31/21 Range/Units 11:09 13:03 WBC (4.5-11.0) K/mm3 Hgb (10.1-14.3) gm/dl Hct (30.3-42.9) % PT (12.2-14.9) Sec. INR (0.87-1.13) D-Dimer (0-234) ng/mlDDU ABG pO2 62.5 L (80.0-90.0) mm Hg ABG O2 Saturation 90.0 L (95.0-99.0) % ABG Base Excess -3.0 L (-2.0-3.0) mmol/L Oxyhemoglobin 88.3 L (95.0-99.0) % Sodium (137-145) mmol/L Chloride (98-107) mmol/L Carbon Dioxide (22-30) mmol/L BUN (7-17) mg/dL Creatinine (0.6-1.2) mg/dL Glucose (65-100) mg/dL POC Glucose (70-105) mg/dL Ferritin (10.0-200.0) ng/mL AST (5-40) units/L Lactate Dehydrogenase 1809 H (91-180) units/L Troponin T (0.00-0.029) ng/mL C-Reactive Protein 32.70 H (0.00-1.30) mg/dL NT-Pro-B Natriuret Pep (0-900) pg/mL Albumin (3.9-5) g/dL Triglycerides (2-149) mg/dL HDL Cholesterol (40-59) mg/dL Assessment and Plan Cultures: Blood culture no growth so far Covid PCR: Pending A/P: 65-year-old female past medical history obesity, diabetes, rheumatoid arthritis, paroxysmal A. fib, CHF admitted as Covid PUI #Acute hypoxic respiratory failure: Currently on the vent. Likely secondary to COVID-19 #Covid PUI: Pending PCR. With bilateral multifocal pneumonia. #CHF #Diabetes: tight glycemic control for best outcomes. #RHINA: Renally dose antibiotics. Recs: -On steroids per pulmonary. Recommend 10 days of steroid therapy. -Continue renally dosed Levaquin for now, if procalcitonin less than 0.25 okay to stop. Procalcitonin likely to be elevated in the setting of RHINA. -Not a candidate for remdesivir -Follow-up Covid PCR -Elevated CRP, if Covid positive likely candidate for Actemra Thank you for the consult, we will continue to follow. Marie Gongora MD [facility] ([facility] O: [phone] F: [phone]
--- NOTE | 2021-07-31 16:10 | XRay Report ---
CHEST 1 VIEW 07/31/2021 3:39 PM INDICATION / CLINICAL INFORMATION: ETT placement. COMPARISON: Earlier today at 9:49 AM. FINDINGS: SUPPORT DEVICES: There is a new endotracheal tube with the tip 2.9 cm above the jessica. HEART / MEDIASTINUM: Unchanged. LUNGS / PLEURA: Moderate diffuse bilateral parenchymal disease, more prominent in the mid to lower leti ng zones appear mildly improved. No pleural effusion. No pneumothorax. ADDITIONAL FINDINGS: No significant additional findings. IMPRESSION: 1. Endotracheal tube tip 2.9 cm above the jessica. 2. Mild improvement in diffuse bilateral parenchymal opacities. Signer Name: Roberto Kulkarni MD Signed: 07/31/2021 4:06 PM Workstation Name: [id number]
[2021-07-31] MEDS ORDERED: NORepinephrine/NS 4 MG-250 ML 4 MG/250 ML BAG IV ONE (16:46)
--- NOTE | 2021-07-31 18:03 | Procedure Note ---
Date of procedure: 07/31/21 Pre-op diagnosis: sepsis Post-op diagnosis: same Procedure: Right internal jugular vein central line placement under ultrasound guidance The patient was prepped and draped in the usual sterile fashion. A timeout was taken to verify the correct patient, correct procedure, and correct operative site. Ultrasound was utilized to localize the right internal jugular vein without difficulty. Utilizing the Seldinger technique a seeker needle was then advanced ultrasound guidance into the right internal jugular vein without difficulty. A guidewire was then advanced via the seeker needle into the right internal jugular vein and the seeker needle removed over the guidewire. A scalpel was used to incise the skin at the insertion site. A dilator was then passed over the guidewire into the right internal jugular vein without difficulty and subsequently removed over the guidewire. A preflushed triple- lumen catheter was then advanced to the right internal jugular vein. All 3 ports flush and draw with ease. 3-0 nylon suture was utilized to secure the central line in place. A Biopatch was placed in the insertion site. Estimated blood loss minimal. Specimens none, complications none. Postoperative chest x- ray reveals no pneumothorax. Estimated blood loss: minimal Pathology: none Condition: critical Disposition: ICU
[2021-07-31 18:30] LABS: ABG HCO3 20.8 mmol/L (20.0-26.0); ABG Methemoglobin 0.6 % (0.0-1.5); ABG Oxygen Saturation 98.8 % (95.0-99.0); ABG PCO2 41.4 mm Hg; ABG PH 7.319 pH Units (7.350-7.450); ABG PO2 151.8 mm Hg (80.0-90.0)
--- NOTE | 2021-07-31 18:30 | XRay Report ---
CHEST 1 VIEW 07/31/2021 5:20 PM INDICATION / CLINICAL INFORMATION: Central line placement. COMPARISON: Earlier today at 3:39 PM. FINDINGS: SUPPORT DEVICES: There is a new right jugular CVL with the tip overlying the proximal SVC. The tip of the endotracheal tube is approximately 4.6 cm above the jessica. HEART / MEDIASTINUM: Unchanged. LUNGS / PLEURA: Moderate diffuse bilateral parenchymal opacities, predominantly in the mid to lower l shantanu zones, have shown minimal change. No pleural effusion. No pneumothorax. ADDITIONAL FINDINGS: No significant additional findings. IMPRESSION: Right jugular CVL placement without complication. Signer Name: Roberto Kulkarni MD Signed: 07/31/2021 6:26 PM Workstation Name: [id number]
[2021-07-31] MEDS: INSULIN LISPRO 100 UNIT/ML SUB-Q SCH (18:33)
[2021-07-31 18:42] LABS: Hematocrit 37.1 % (30.3-42.9); Hemoglobin 12.4 gm/dl (10.1-14.3)
[2021-07-31 18:58] LABS: INR 1.39 (0.87-1.13); Partial Thromboplastin Time 28.4 Sec. (24.2-36.6)
[2021-07-31 21:02] LABS: Giant Platelets Rare; Platelet Clumps Rare; RBC Morphology Normal; Total Cells Counted 100
[2021-07-31 21:03] LABS: Platelet Count 217 K/mm3 (140-440)
[2021-07-31] MEDS: HYDROmorphone 1 MG/1 ML INJ IV PRN (21:55)
[2021-07-31] MEDS ORDERED: HEPARIN 5,000 UNIT/1 ML VIAL SUB-Q SCH (22:00)
[2021-07-31] MEDS: FAMOTIDINE 20 MG/2 ML INJ IV SCH (22:36)
[2021-08-01] MEDS: SENNOSIDES/DOCUSATE SODIUM 8.6/50 MG TAB FEEDTUBE SCH ×3 (00:47→22:18)
[2021-08-01] MEDS: ASCORBIC ACID 500 MG TAB PO SCH ×3 (00:47→22:18)
[2021-08-01] MEDS: ZINC SULFATE 220 MG CAP PO SCH ×3 (00:48→22:19)
[2021-08-01] MEDS: INSULIN LISPRO 100 UNIT/ML SUB-Q SCH ×4 (00:49→18:56)
[2021-08-01] MEDS: HYDROmorphone 1 MG/1 ML INJ IV PRN (00:58)
[2021-08-01 06:10] LABS: Hematocrit 37.2 % (30.3-42.9); Hemoglobin 12.1 gm/dl (10.1-14.3); Mean Corpuscular HGB Conc 32 % (30-34); Mean Corpuscular Volume 92 fl (79-97); Platelet Count 187 K/mm3 (140-440); Red Blood Count 4.05 M/mm3 (3.65-5.03); Red Cell Distribution Width 14.4 % (13.2-15.2)
[2021-08-01 06:26] LABS: Albumin 2.8 g/dL (3.9-5); Calcium 8.8 mg/dL (8.4-10.2)
[2021-08-01] MEDS: NORepinephrine/NS 4 MG-250 ML 4 MG/250 ML BAG IV SCH ×2 (07:30→21:18)
[2021-08-01] MEDS: methylPREDNISolone Sod Succinate 40 MG/1 ML INJ IV SCH ×3 (08:01→22:29)
[2021-08-01] MEDS: INSULIN NPH/REGULAR 70/30 INJ SUB-Q SCH ×2 (09:08→19:08)
--- NOTE | 2021-08-01 09:25 | XRay Report ---
CHEST 1 VIEW 08/01/2021 8:19 AM INDICATION / CLINICAL INFORMATION: FOLLOW UP RESP FAILURE . COMPARISON: 07/31/2021 FINDINGS: SUPPORT DEVICES: Stable, satisfactory device positioning. HEART / MEDIASTINUM: Stable. LUNGS / PLEURA: Stable bilateral airspace disease. No pneumothorax. ADDITIONAL FINDINGS: No significant additional findings. IMPRESSION: 1. No significant change. Signer Name: Lebron Starks MD Signed: 08/01/2021 9:21 AM Workstation Name: [email or web address]
[2021-08-01 09:34] LABS: Total Cells Counted 100
[2021-08-01 09:36] LABS: Anisocytosis 1+; Band Neutrophils # (Manual) 0.6 K/mm3; Burr Cells 1+; Platelet Estimate Consistent w Auto; Poikilocytosis 1+
[2021-08-01] MEDS: FAMOTIDINE 20 MG/2 ML INJ IV SCH ×2 (10:36→22:29)
[2021-08-01] MEDS: CHOLECALCIFEROL (VIT D3) 400 UNIT TAB PO SCH (11:54)
[2021-08-01] MEDS: HEPARIN/ 0.45% NACL DRIP 25,000 UNIT/500 ML BAG IV SCH ×2 (12:13→19:46)
[2021-08-01] MEDS: fentaNYL DRIP Premix 2,000 MCG/100 ML BAG IV SCH (12:53)
--- NOTE | 2021-08-01 14:01 | History and Physical Report ---
History of Present Illness Date of admission: 07/31/21 11:44 Past History Past Medical History: atrial fib, arthritis, diabetes, heart failure, hypertension Past Surgical History: , hysterectomy, mastectomy Social history: single. denies: smoking, alcohol abuse, prescription drug abuse Family history: diabetes, hypertension Medications and Allergies Allergies Allergy/AdvReac Type Severity Reaction Status Date / Time aspirin [From Percodan] Allergy Unknown Unverified 04/09/15 11:03 oxycodone HCl [From Percodan] Allergy Unknown Verified 08/01/21 11:12 oxycodone terephthalate Allergy Unknown Verified 08/01/21 11:12 [From Percodan] Penicillins Allergy Unknown Verified 08/20/13 14:46 Home Medications Medication Instructions Recorded Confirmed Last Taken Type Ciprofloxacin HCl [Ciprofloxacin 500 mg PO BID #14 tablet 08/20/13 Unknown Rx TAB] Cyclobenzaprine [Flexeril] 10 mg PO TID PRN 08/20/13 08/20/13 Unknown History Fluconazole [Diflucan] 50 mg PO QDAY #3 tablet 08/20/13 Unknown Rx Insulin NPH/Regular [Novolin 70/30] 15 unit SQ BID #2 vial 08/20/13 Unknown Rx Naproxen [Naprosyn] 500 mg PO BID 08/20/13 08/20/13 Unknown History Nystatin [Nystop Powder] 0 gm TP QDAY #50 gm 08/20/13 Unknown Rx amLODIPine [Norvasc] 10 mg PO DAILY #60 tab 08/20/13 Unknown Rx traMADoL [Ultram] 50 mg PO Q4HR PRN 08/20/13 08/20/13 Unknown History Active Meds: Active Medications Acetaminophen (Acetaminophen 325 Mg Tab) 650 mg PO Q4H PRN PRN Reason: Pain MILD(1-3)/Fever >100.5/PIERCE Albuterol (Albuterol 2.5 Mg/3 Ml Nebu) 2.5 mg IH Q4HRT PRN PRN Reason: Shortness Of Breath Ascorbic Acid (Ascorbic Acid 500 Mg Tab) 500 mg PO BID [facility] Last Admin: 08/01/21 10:38 Dose: Not Given Documented by: Azithromycin (Azithromycin 250 Mg Tab) 250 mg PO QDAY [facility]; Protocol Cholecalciferol (Cholecalciferol (Vit D3) 400 Unit Tab) 1,000 unit PO QDAY [facility] Last Admin: 08/01/21 11:54 Dose: Not Given Documented by: Cyclobenzaprine HCl (Cyclobenzaprine 10 Mg Tab) 10 mg PO TID PRN PRN Reason: MUSCLE PAIN/SPASMS Dextrose (Dextrose 50% In Water (25gm) 50 Ml Syringe) 50 ml IV Q30MIN PRN; Protocol PRN Reason: Hypoglycemia Famotidine (Famotidine 20 Mg/2 Ml Inj) 20 mg IV BID [facility] Last Admin: 08/01/21 10:36 Dose: 20 mg Documented by: Fentanyl (Fentanyl 100 Mcg/2 Ml Inj) 50 mcg IV Q10MIN PRN PRN Reason: ANALGESIA Heparin Sodium (Porcine) (Heparin 10,000 Units/10 Ml Vial) 4,500 unit 40 unit/kg (4500 unit) IV Q6H PRN PRN Reason: Anti-Xa Assay < 0.1 units/ml Hydromorphone HCl (Hydromorphone 1 Mg/1 Ml Inj) 0.25 mg IV Q4H PRN PRN Reason: Pain, Moderate (4-6) Last Admin: 08/01/21 00:58 Dose: 0.25 mg Documented by: Hydromorphone HCl (Hydromorphone 1 Mg/1 Ml Inj) 0.5 mg IV Q23H PRN PRN Reason: Pain , Severe (7-10) Hydrophilic Ointment (Lip Therapy Vaseline) 1 applic TP Q2HR PRN PRN Reason: Dry Lips Levofloxacin/Dextrose (Levaquin 750mg/150ml) 750 mg in 150 mls @ 100 mls/hr IV Q48H TRISTEN; Protocol Last Admin: 07/31/21 15:00 Dose: 100 mls/hr Documented by: Sodium Chloride (Nacl 0.9% 1000 Ml) 1,000 mls @ 100 mls/hr IV DIRECT TRISTEN Heparin Sodium/Sodium Chloride (Heparin/ 0.45% Nacl-25,000 Unit/500 Ml) 25,000 unit in 500 mls @ 20 mls/hr IV TITRATE TRISTEN; Protocol Last Admin: 08/01/21 12:13 Dose: 1,000 units/hr, 20 mls/hr Documented by: Propofol (Diprivan 10 Mg/Ml) 1,000 mg in 100 mls @ 3.402 mls/hr IV TITR TRISTEN; Protocol Last Admin: 08/01/21 11:52 Dose: 30 mcg/kg/min, 20.412 mls/hr Documented by: Norepinephrine (Levophed Drip 4 Mg/Ns 250 Ml) 4 mg in 250 mls @ 18.75 mls/hr IV TITR [facility]; Protocol Fentanyl Citrate (Fentanyl Drip Premix) 2,000 mcg in 100 mls @ 5.67 mls/hr IV TITR [facility]; Protocol Last Admin: 08/01/21 12:53 Dose: 1 mcg/kg/hr, 5.67 mls/hr Documented by: Insulin Human Isoph/Insulin Regular (Insulin Nph/Regular 70/30 Inj) 15 unit SUB-Q BIDDIAB [facility] Last Admin: 08/01/21 09:08 Dose: 15 unit Documented by: Insulin Human Lispro (Insulin Lispro 100 Unit/Ml) 0 unit SUB-Q Q6HR [facility]; Protocol Last Admin: 08/01/21 13:25 Dose: 12 unit Documented by: Methylprednisolone Sodium Succinate (Methylprednisolone Sod Succinate 40 Mg/1 Ml Inj) 40 mg IV Q8HR [facility] Last Admin: 08/01/21 08:01 Dose: 40 mg Documented by: Multi-Ingred Cream/Lotion/Oil/Oint (Mineral Oil/Petrolatum, White Ophth Oint 3.5 Gm) 1 applic OU Q4HR PRN PRN Reason: Dry Eye(s) Ondansetron HCl (Ondansetron 4 Mg/2 Ml Inj) 4 mg IV Q8H PRN PRN Reason: Nausea And Vomiting Oxycodone/Acetaminophen (Oxycodone /Acetaminophen 5-325mg Tab) 1 tab PO Q16H P RN PRN Reason: Pain, Moderate (4-6) Senna/Docusate Sodium (Sennosides/Docusate Sodium 8.6/50 Mg Tab) 1 tab FEEDTUBE BID [facility] Last Admin: 08/01/21 10:39 Dose: Not Given Documented by: Sodium Chloride (Sodium Chloride 0.9% 10 Ml Flush Syringe) 10 ml IV BID [facility] Last Admin: 08/01/21 10:37 Dose: 10 ml Documented by: Sodium Chloride (Sodium Chloride 0.9% 10 Ml Flush Syringe) 10 ml IV PRN PRN PRN Reason: LINE FLUSH Zinc Sulfate (Zinc Sulfate 220 Mg Cap) 220 mg PO BID [facility] Last Admin: 08/01/21 10:39 Dose: Not Given Documented by: Exam - Constitutional Vitals: Temp Pulse Resp BP Pulse Ox 97.2 F L 76 23 170/94 100 08/01/21 13:08 08/01/21 13:10 08/01/21 13:08 08/01/21 13:08 08/01/21 13:08 HEART Score - HEART Score Troponin: Troponin T 0.069 ng/mL (0.00-0.029) H 07/31/21 09:27 Results - Labs CBC & Chem 7: 08/01/21 05:44 08/01/21 05:44 Labs: Laboratory Last Values WBC 15.9 K/mm3 (4.5-11.0) H 08/01/21 05:44 RBC 4.05 M/mm3 (3.65-5.03) 08/01/21 05:44 Hgb 12.1 gm/dl (10.1-14.3) 08/01/21 05:44 Hct 37.2 % (30.3-42.9) 08/01/21 05:44 MCV 92 fl (79-97) 08/01/21 05:44 MCH 30 pg (28-32) 08/01/21 05:44 MCHC 32 % (30-34) 08/01/21 05:44 RDW 14.4 % (13.2-15.2) 08/01/21 05:44 Plt Count 187 K/mm3 (140-440) 08/01/21 05:44 Add Manual Diff Complete 08/01/21 05:44 Total Counted 100 08/01/21 05:44 Seg Neuts % (Manual) 88.0 % (40.0-70.0) H 08/01/21 05:44 Band Neutrophils % 4.0 % 08/01/21 05:44 Lymphocytes % (Manual) 6.0 % (13.4-35.0) L 08/01/21 05:44 Monocytes % (Manual) 1.0 % (0.0-7.3) 08/01/21 05:44 Metamyelocytes % 1.0 % 08/01/21 05:44 Nucleated RBC % 2.0 % (0.0-0.9) H 08/01/21 05:44 Seg Neutrophils # Man 14.0 K/mm3 (1.8-7.7) H 08/01/21 05:44 Band Neutrophils # 0.6 K/mm3 08/01/21 05:44 Lymphocytes # (Manual) 1.0 K/mm3 (1.2-5.4) L 08/01/21 05:44 Abs React Lymphs (Man) 0.0 K/mm3 08/01/21 05:44 Monocytes # (Manual) 0.2 K/mm3 (0.0-0.8) 08/01/21 05:44 Eosinophils # (Manual) 0.0 K/mm3 (0.0-0.4) 08/01/21 05:44 Basophils # (Manual) 0.0 K/mm3 (0.0-0.1) 08/01/21 05:44 Metamyelocytes # 0.2 K/mm3 08/01/21 05:44 Myelocytes # 0.0 K/mm3 08/01/21 05:44 Promyelocytes # 0.0 K/mm3 08/01/21 05:44 Blast Cells # 0.0 K/mm3 08/01/21 05:44 WBC Morphology Not Reportable 08/01/21 05:44 Hypersegmented Neuts Not Reportable 08/01/21 05:44 Hyposegmented Neuts Not Reportable 08/01/21 05:44 Hypogranular Neuts Not Reportable 08/01/21 05:44 Smudge Cells Not Reportable 08/01/21 05:44 Toxic Granulation Not Reportable 08/01/21 05:44 Toxic Vacuolation Not Reportable 08/01/21 05:44 Dohle Bodies Not Reportable 08/01/21 05:44 Pelger-Huet Anomaly Not Reportable 08/01/21 05:44 Prasad Rods Not Reportable 08/01/21 05:44 Platelet Estimate Consistent w auto 08/01/21 05:44 Clumped Platelets Not Reportable 08/01/21 05:44 Plt Clumps, EDTA Not Reportable 08/01/21 05:44 Large Platelets Not Reportable 08/01/21 05:44 Giant Platelets Not Reportable 08/01/21 05:44 Platelet Satelliting Not Reportable 08/01/21 05:44 Plt Morphology Comment Not Reportable 08/01/21 05:44 RBC Morphology Not Reportable 08/01/21 05:44 Dimorphic RBCs Not Reportable 08/01/21 05:44 Polychromasia Few 08/01/21 05:44 Hypochromasia Not Reportable 08/01/21 05:44 Poikilocytosis 1+ 08/01/21 05:44 Anisocytosis 1+ 08/01/21 05:44 Microcytosis Not Reportable 08/01/21 05:44 Macrocytosis Not Reportable 08/01/21 05:44 Spherocytes Not Reportable 08/01/21 05:44 Pappenheimer Bodies Not Reportable 08/01/21 05:44 Sickle Cells Not Reportable 08/01/21 05:44 Target Cells Not Reportable 08/01/21 05:44 Tear Drop Cells Not Reportable 08/01/21 05:44 Ovalocytes Not Reportable 08/01/21 05:44 Helmet Cells Not Reportable 08/01/21 05:44 [place] Bodies Not Reportable 08/01/21 05:44 Salol Rings Not Reportable 08/01/21 05:44 Sutton Cells 1+ 08/01/21 05:44 Bite Cells Not Reportable 08/01/21 05:44 Crenated Cell Not Reportable 08/01/21 05:44 Elliptocytes Not Reportable 08/01/21 05:44 Acanthocytes (Spur) Not Reportable 08/01/21 05:44 Rouleaux Not Reportable 08/01/21 05:44 Hemoglobin C Crystals Not Reportable 08/01/21 05:44 Schistocytes Not Reportable 08/01/21 05:44 Malaria parasites Not Reportable 08/01/21 05:44 Bertrand Bodies Not Reportable 08/01/21 05:44 Hem Pathologist Commnt No 08/01/21 05:44 PT 18.5 Sec. (12.2-14.9) H 07/31/21 18:30 INR 1.39 (0.87-1.13) H 07/31/21 18:30 APTT 28.4 Sec. (24.2-36.6) 07/31/21 18:30 D-Dimer 2619.75 ng/mlDDU (0-234) H 07/31/21 09:46 ABG pH 7.344 (7.320-7.450) 08/01/21 06:33 POC ABG pCO2 30.9 mmHg (32.0-48.0) L 08/01/21 06:33 ABG pCO2 41.4 mm Hg 07/31/21 18:10 POC ABG pO2 151.8 mmHg (83-108) H 08/01/21 06:33 ABG pO2 151.8 mm Hg (80.0-90.0) H 07/31/21 18:10 POC ABG HCO3 16.4 08/01/21 06:33 ABG HCO3 20.8 mmol/L (20.0-26.0) 07/31/21 18:10 ABG O2 Saturation 99.0 (0-100) 08/01/21 06:33 ABG O2 Content 17.4 (0.0-44) 07/31/21 18:10 POC ABG Base Excess -8.1 08/01/21 06:33 ABG Base Excess -5.0 mmol/L (-2.0-3.0) L 07/31/21 18:10 ABG Hemoglobin 12.6 (12.0-17.5) 08/01/21 06:33 ABG Oxyhemoglobin 98.2 (94-98) H 08/01/21 06:33 ABG Carboxyhemoglobin 1.0 % (0.0-5.0) 07/31/21 18:10 ABG Methemoglobin 0.3 (0.0-1.5) 08/01/21 06:33 ABG Sodium 134.8 mmol/L (136.0-145.0) L 08/01/21 06:33 ABG Potassium 4.2 mmol/L (3.40-4.50) 08/01/21 06:33 ABG Chloride 104.0 mmol/L (98-107) 08/01/21 06:33 ABG Glucose 391 mg/dL (65-95) H 08/01/21 06:33 Oxyhemoglobin 97.1 % (95.0-99.0) 07/31/21 18:10 Carboxyhemoglobin 0.5 (0.5-1.5) 08/01/21 06:33 FiO2 100 % 07/31/21 18:10 FiO2 % 80.0 08/01/21 06:33 Sodium 139 mmol/L (137-145) 08/01/21 05:44 Potassium 4.8 mmol/L (3.6-5.0) 08/01/21 05:44 Chloride 102.5 mmol/L (98-107) 08/01/21 05:44 Carbon Dioxide 21 mmol/L (22-30) L 08/01/21 05:44 Anion Gap 20 mmol/L 08/01/21 05:44 BUN 83 mg/dL (7-17) H 08/01/21 05:44 Creatinine 2.5 mg/dL (0.6-1.2) H 08/01/21 05:44 Estimated GFR 23 ml/min 08/01/21 05:44 BUN/Creatinine Ratio 33 % 08/01/21 05:44 Glucose 410 mg/dL (65-100) H 08/01/21 05:44 POC Glucose 345 mg/dL (70-105) H 08/01/21 13:17 Lactic Acid 1.90 mmol/L (0.7-2.0) 08/01/21 05:44 Calcium 8.8 mg/dL (8.4-10.2) 08/01/21 05:44 Ferritin 4832.0 ng/mL (10.0-200.0) H 07/31/21 11:09 Total Bilirubin 0.60 mg/dL (0.1-1.2) 08/01/21 05:44 AST 46 units/L (5-40) H 08/01/21 05:44 ALT 26 units/L (7-56) 08/01/21 05:44 Alkaline Phosphatase 77 units/L (35-129) 08/01/21 05:44 Lactate Dehydrogenase 1809 units/L (91-180) H 07/31/21 11:09 Troponin T 0.069 ng/mL (0.00-0.029) H 07/31/21 09:27 C-Reactive Protein 32.70 mg/dL (0.00-1.30) H 07/31/21 11:09 NT-Pro-B Natriuret Pep 8486 pg/mL (0-900) H 07/31/21 09:46 Total Protein 6.2 g/dL (6.3-8.2) L D 08/01/21 05:44 Albumin 2.8 g/dL (3.9-5) L 08/01/21 05:44 Albumin/Globulin Ratio 0.8 % 08/01/21 05:44 Triglycerides 235 mg/dL (2-149) H 07/31/21 09:27 Cholesterol 125 mg/dL (50-199) 07/31/21 09:27 LDL Cholesterol Direct 50 mg/dL (50-130) 07/31/21 09:27 HDL Cholesterol 29 mg/dL (40-59) L 07/31/21 09:27 Cholesterol/HDL Ratio 4.31 % 07/31/21 09:27 Procalcitonin 2.12 ng/mL (<0.15) 07/31/21 11:09 Arterial Blood Glucose 391 mg/dL (65-95) H 08/01/21 06:33 Blood Type O POSITIVE 07/31/21 18:30 Antibody Screen Negative 07/31/21 18:30 Microbiology: Microbiology 07/31/21 11:09 Peripheral/Venous Blood Culture - Preliminary NO GROWTH AFTER 24 HOURS 07/31/21 11:09 Peripheral/Venous Blood Culture - Preliminary NO GROWTH AFTER 24 HOURS
--- NOTE | 2021-08-01 14:06 | Progress Note ---
<NIK CARR - Last Filed: 08/01/21 14:53> Assessment and Plan Assessment and plan: This is a 65 years-old unvaccinated female with PmHx of Obesity Hypoventilation Syndrome, DM2, RA, Paroxysmal Atrial Fib not taking therapeutic anticoagulation, HTN, CHF who presents to the ED due to hypoxia, SOB, and has not been feeling well for over week. Upon arrival to the ED, patient's SPO2 was in the low 80%, tachycardic, and tachypneic. She was initially placed on noninvasive positive pressure ventilation with no improvement, then later intubated due to acute hypoxemic respiratory failure. Additional workups showed bilateral pneumonia, NSTEMI, RHINA, and uncontrolled DM. Patient will be transfer to ICU when a bed is available for further management. Hospital Course to Date: 08/01/21- Patient is intubated, appears restless and anxious on propofol gtt, fentanyl gtt added for RASS 0 to -2. Patient remains leukocytosis, continue empiric ABx per ID. CT chest ordered to f/o on multifocal PNA. Nephro consulted for RHINA,, and insulin adjusted for hyperglycemia. Will continue to monitor renal function and adjust insulin accordingly for glycemic control. Assessment and Plan #Neuro: Anxiety - Patient is intubated on proprofol, RASS 0 to +1 - Patient is awake and appropriate, appears restless and anxious - Fentanyl gtt added - Titrate sedation for RASS goal 0 to -2 - PRN analgesic for POCT greater than 3 - Daily SAT and SBT per CCM - Avoid benzodiazepine's, reduce the possibility of delirium - Maintenance of sleep-wake cycle, avoid delirium #NSTEMI #Elevated Troponin #Acute on Chronic CHF #Paroxysmal Atrial Fib - Troponin 0.069 - initial EKG shows sinus tach probable with no acute ischemic changes - 07/31 2D Echo- EF 50-55% - NSR to ST on the monitor today - Repeat EKG pending - Cardiology on consult, appreciated recommendation - On low dose pressors - Continue blood pressure monitor per protocol - Wean off pressors for MAP greater than 65 - BNP 8486 - No diurectic for now in the setting of RHINA - Continue AC- Heparin gtt per protocol #Acute hypoxemic Respiratory failure 2/2 #COVID PUI - 07/31 CXR- multifocal airspace opacitities concern for pneumonia - 08/01 CXR- stable bilateral airspace disease - COVID swab pending, 07/31 Tracheal aspirate pending - ETT on 07/31: - Vent setting: CMV- 80,12,20,450 - This am ABG noted - Wean FiO2 as tolerated for SPO2 goal above 92% - Continue steroids [id number] - CT chest w/o con pending - Daily CXR and ABGs - Daily SBT and SAT trials as tolerated - VAP bundle addressed #GI: NAP - Currently NPO - Will assess need for NGT for nutrition - Continue BR- - Continue PPI- Pepcid #Acute Kidney Injury (RHINA) - Cr from 08/2013 was 0.7, cr. up to 2.7 this admit - Nephro consulted - Asher inserted, 450cc UOP documemnted so far - Continue strict intake and output - Avoid nephrotoxic medications; Renally dose medications - Hold diurectic for now due to RHINA - Continue to monitor and replace electrolytes as needed #ID: Sepsis 2/2 bilateral PNA #Bilateral Multifocal Pneumonia #COVID PUI - 07/31 CXR- multifocal airspace opacitities concern for pneumonia - 08/01 CXR- stable bilateral airspace disease - COVID swab pending, 07/31 Tracheal aspirate pending, 07/31 B.cultX2 pending - Lactic acid normal 1.9 - Leukocytosis 15.9 today - Patient remains afebrile; TMAX 97.2 - Continue empiric ABx- Levaquin and Azithromycin - F/U on cultures - Continue steroids [id number] - Daily CBC monitor - ID on consult, appreciated recommendations #Endo:Hyperglycemia #Uncontrolled Diabetes - Continue high scale SSI - Restarted home dose NPH BID - While critically ill target blood glucose of 140-180 - Avoid hypoglycemia The high probability of a clinically significant, sudden or life threatening deterioration of the [multiple] system(s) required my full and direct attention, intervention and personal management. The aggregate critical care time was [60] minutes. This time is in addition to time spent performing reported procedures but includes the following: [x] Data Review and interpretation [x] Patient assessment and monitoring of vital signs [x] Documentation [x] Medication orders and management Disposition Plan: ICU Total Time Spent with Patient (Minutes): 60 History Interval history: Patient seen and examined at the ED. AAO, on propofol gtt, appears restless and anxious, but is following commands. Remains on low dose pressors, but no sig. events reported from overnight. Hospitalist Physical - Constitutional Vitals: Temp Pulse Resp BP Pulse Ox 97.2 F L 76 23 170/94 100 08/01/21 13:08 08/01/21 13:10 08/01/21 13:08 08/01/21 13:08 08/01/21 13:08 General appearance: Present: no acute distress, well-nourished, other - EENT Eyes: Present: PERRL ENT: hearing intact - Neck Neck: Present: normal ROM - Respiratory Respiratory effort: normal Respiratory: bilateral: diminished - Cardiovascular Rhythm: regular Heart Sounds: Present: S1 & S2 - Extremities Extremities: no ischemia, pulses intact, pulses symmetrical Extremity abnormal: edema - Peripheral Assessment Generalized Edema Type: Non-pitting Edema Degree: 1+ Capillary Refill: < 3 seconds Skin Temperature: Warm Peripheral Pulses: within normal limits - Abdominal General gastrointestinal: soft, non-tender, normal bowel sounds - Integumentary Integumentary: Present: clear, warm, dry - Psychiatric Psychiatric: cooperative, agitated - Neurologic Neurologic: CNII-XII intact, moves all extremities - Allied Health Allied health notes reviewed: nursing HEART Score - HEART Score Troponin: Troponin T 0.069 ng/mL (0.00-0.029) H 07/31/21 09:27 Results - Labs CBC & Chem 7: 08/01/21 05:44 08/01/21 05:44 Labs: Laboratory Last Values WBC 15.9 K/mm3 (4.5-11.0) H 08/01/21 05:44 RBC 4.05 M/mm3 (3.65-5.03) 08/01/21 05:44 Hgb 12.1 gm/dl (10.1-14.3) 08/01/21 05:44 Hct 37.2 % (30.3-42.9) 08/01/21 05:44 MCV 92 fl (79-97) 08/01/21 05:44 MCH 30 pg (28-32) 08/01/21 05:44 MCHC 32 % (30-34) 08/01/21 05:44 RDW 14.4 % (13.2-15.2) 08/01/21 05:44 Plt Count 187 K/mm3 (140-440) 08/01/21 05:44 Add Manual Diff Complete 08/01/21 05:44 Total Counted 100 08/01/21 05:44 Seg Neuts % (Manual) 88.0 % (40.0-70.0) H 08/01/21 05:44 Band Neutrophils % 4.0 % 08/01/21 05:44 Lymphocytes % (Manual) 6.0 % (13.4-35.0) L 08/01/21 05:44 Monocytes % (Manual) 1.0 % (0.0-7.3) 08/01/21 05:44 Metamyelocytes % 1.0 % 08/01/21 05:44 Nucleated RBC % 2.0 % (0.0-0.9) H 08/01/21 05:44 Seg Neutrophils # Man 14.0 K/mm3 (1.8-7.7) H 08/01/21 05:44 Band Neutrophils # 0.6 K/mm3 08/01/21 05:44 Lymphocytes # (Manual) 1.0 K/mm3 (1.2-5.4) L 08/01/21 05:44 Abs React Lymphs (Man) 0.0 K/mm3 08/01/21 05:44 Monocytes # (Manual) 0.2 K/mm3 (0.0-0.8) 08/01/21 05:44 Eosinophils # (Manual) 0.0 K/mm3 (0.0-0.4) 08/01/21 05:44 Basophils # (Manual) 0.0 K/mm3 (0.0-0.1) 08/01/21 05:44 Metamyelocytes # 0.2 K/mm3 08/01/21 05:44 Myelocytes # 0.0 K/mm3 08/01/21 05:44 Promyelocytes # 0.0 K/mm3 08/01/21 05:44 Blast Cells # 0.0 K/mm3 08/01/21 05:44 WBC Morphology Not Reportable 08/01/21 05:44 Hypersegmented Neuts Not Reportable 08/01/21 05:44 Hyposegmented Neuts Not Reportable 08/01/21 05:44 Hypogranular Neuts Not Reportable 08/01/21 05:44 Smudge Cells Not Reportable 08/01/21 05:44 Toxic Granulation Not Reportable 08/01/21 05:44 Toxic Vacuolation Not Reportable 08/01/21 05:44 Dohle Bodies Not Reportable 08/01/21 05:44 Pelger-Huet Anomaly Not Reportable 08/01/21 05:44 Prasad Rods Not Reportable 08/01/21 05:44 Platelet Estimate Consistent w auto 08/01/21 05:44 Clumped Platelets Not Reportable 08/01/21 05:44 Plt Clumps, EDTA Not Reportable 08/01/21 05:44 Large Platelets Not Reportable 08/01/21 05:44 Giant Platelets Not Reportable 08/01/21 05:44 Platelet Satelliting Not Reportable 08/01/21 05:44 Plt Morphology Comment Not Reportable 08/01/21 05:44 RBC Morphology Not Reportable 08/01/21 05:44 Dimorphic RBCs Not Reportable 08/01/21 05:44 Polychromasia Few 08/01/21 05:44 Hypochromasia Not Reportable 08/01/21 05:44 Poikilocytosis 1+ 08/01/21 05:44 Anisocytosis 1+ 08/01/21 05:44 Microcytosis Not Reportable 08/01/21 05:44 Macrocytosis Not Reportable 08/01/21 05:44 Spherocytes Not Reportable 08/01/21 05:44 Pappenheimer Bodies Not Reportable 08/01/21 05:44 Sickle Cells Not Reportable 08/01/21 05:44 Target Cells Not Reportable 08/01/21 05:44 Tear Drop Cells Not Reportable 08/01/21 05:44 Ovalocytes Not Reportable 08/01/21 05:44 Helmet Cells Not Reportable 08/01/21 05:44 [place] Bodies Not Reportable 08/01/21 05:44 [place] Rings Not Reportable 08/01/21 05:44 [place] Cells 1+ 08/01/21 05:44 Bite Cells Not Reportable 08/01/21 05:44 Crenated Cell Not Reportable 08/01/21 05:44 Elliptocytes Not Reportable 08/01/21 05:44 Acanthocytes (Spur) Not Reportable 08/01/21 05:44 Rouleaux Not Reportable 08/01/21 05:44 Hemoglobin C Crystals Not Reportable 08/01/21 05:44 Schistocytes Not Reportable 08/01/21 05:44 Malaria parasites Not Reportable 08/01/21 05:44 Bertrand Bodies Not Reportable 08/01/21 05:44 Hem Pathologist Commnt No 08/01/21 05:44 PT 18.5 Sec. (12.2-14.9) H 07/31/21 18:30 INR 1.39 (0.87-1.13) H 07/31/21 18:30 APTT 28.4 Sec. (24.2-36.6) 07/31/21 18:30 D-Dimer 2619.75 ng/mlDDU (0-234) H 07/31/21 09:46 ABG pH 7.344 (7.320-7.450) 08/01/21 06:33 POC ABG pCO2 30.9 mmHg (32.0-48.0) L 08/01/21 06:33 ABG pCO2 41.4 mm Hg 07/31/21 18:10 POC ABG pO2 151.8 mmHg (83-108) H 08/01/21 06:33 ABG pO2 151.8 mm Hg (80.0-90.0) H 07/31/21 18:10 POC ABG HCO3 16.4 08/01/21 06:33 ABG HCO3 20.8 mmol/L (20.0-26.0) 07/31/21 18:10 ABG O2 Saturation 99.0 (0-100) 08/01/21 06:33 ABG O2 Content 17.4 (0.0-44) 07/31/21 18:10 POC ABG Base Excess -8.1 08/01/21 06:33 ABG Base Excess -5.0 mmol/L (-2.0-3.0) L 07/31/21 18:10 ABG Hemoglobin 12.6 (12.0-17.5) 08/01/21 06:33 ABG Oxyhemoglobin 98.2 (94-98) H 08/01/21 06:33 ABG Carboxyhemoglobin 1.0 % (0.0-5.0) 07/31/21 18:10 ABG Methemoglobin 0.3 (0.0-1.5) 08/01/21 06:33 ABG Sodium 134.8 mmol/L (136.0-145.0) L 08/01/21 06:33 ABG Potassium 4.2 mmol/L (3.40-4.50) 08/01/21 06:33 ABG Chloride 104.0 mmol/L (98-107) 08/01/21 06:33 ABG Glucose 391 mg/dL (65-95) H 08/01/21 06:33 Oxyhemoglobin 97.1 % (95.0-99.0) 07/31/21 18:10 Carboxyhemoglobin 0.5 (0.5-1.5) 08/01/21 06:33 FiO2 100 % 07/31/21 18:10 FiO2 % 80.0 08/01/21 06:33 Sodium 139 mmol/L (137-145) 08/01/21 05:44 Potassium 4.8 mmol/L (3.6-5.0) 08/01/21 05:44 Chloride 102.5 mmol/L (98-107) 08/01/21 05:44 Carbon Dioxide 21 mmol/L (22-30) L 08/01/21 05:44 Anion Gap 20 mmol/L 08/01/21 05:44 BUN 83 mg/dL (7-17) H 08/01/21 05:44 Creatinine 2.5 mg/dL (0.6-1.2) H 08/01/21 05:44 Estimated GFR 23 ml/min 08/01/21 05:44 BUN/Creatinine Ratio 33 % 08/01/21 05:44 Glucose 410 mg/dL (65-100) H 08/01/21 05:44 POC Glucose 345 mg/dL (70-105) H 08/01/21 13:17 Lactic Acid 1.90 mmol/L (0.7-2.0) 08/01/21 05:44 Calcium 8.8 mg/dL (8.4-10.2) 08/01/21 05:44 Ferritin 4832.0 ng/mL (10.0-200.0) H 07/31/21 11:09 Total Bilirubin 0.60 mg/dL (0.1-1.2) 08/01/21 05:44 AST 46 units/L (5-40) H 08/01/21 05:44 ALT 26 units/L (7-56) 08/01/21 05:44 Alkaline Phosphatase 77 units/L (35-129) 08/01/21 05:44 Lactate Dehydrogenase 1809 units/L (91-180) H 07/31/21 11:09 Troponin T 0.069 ng/mL (0.00-0.029) H 07/31/21 09:27 C-Reactive Protein 32.70 mg/dL (0.00-1.30) H 07/31/21 11:09 NT-Pro-B Natriuret Pep 8486 pg/mL (0-900) H 07/31/21 09:46 Total Protein 6.2 g/dL (6.3-8.2) L D 08/01/21 05:44 Albumin 2.8 g/dL (3.9-5) L 08/01/21 05:44 Albumin/Globulin Ratio 0.8 % 08/01/21 05:44 Triglycerides 235 mg/dL (2-149) H 07/31/21 09:27 Cholesterol 125 mg/dL (50-199) 07/31/21 09:27 LDL Cholesterol Direct 50 mg/dL (50-130) 07/31/21 09:27 HDL Cholesterol 29 mg/dL (40-59) L 07/31/21 09:27 Cholesterol/HDL Ratio 4.31 % 07/31/21 09:27 Procalcitonin 2.12 ng/mL (<0.15) 07/31/21 11:09 Arterial Blood Glucose 391 mg/dL (65-95) H 08/01/21 06:33 Blood Type O POSITIVE 07/31/21 18:30 Antibody Screen Negative 07/31/21 18:30 Microbiology: Microbiology 07/31/21 11:09 Peripheral/Venous Blood Culture - Preliminary NO GROWTH AFTER 24 HOURS 07/31/21 11:09 Peripheral/Venous Blood Culture - Preliminary NO GROWTH AFTER 24 HOURS Active Medications - Current Medications Current Medications: Generic Name Dose Route Start Last Admin Trade Name Freq PRN Reason Stop Dose Admin Acetaminophen 650 mg 07/31/21 11:44 Acetaminophen 325 Mg Tab PO Q4H PRN Pain MILD(1-3)/Fever >100.5/PIERCE Albuterol 2.5 mg 07/31/21 11:44 Albuterol 2.5 Mg/3 Ml Nebu IH Q4HRT PRN Shortness Of Breath Ascorbic Acid 500 mg 07/31/21 22:00 08/01/21 10:38 Ascorbic Acid 500 Mg Tab PO Not Given BID TRISTEN Azithromycin 250 mg 08/01/21 12:00 Azithromycin 250 Mg Tab PO QDAY [facility] Protocol Cholecalciferol 1,000 unit 08/01/21 10:00 08/01/21 11:54 Cholecalciferol (Vit D3) 400 Unit Tab PO Not Given QDAY TRISTEN Cyclobenzaprine HCl 10 mg 07/31/21 12:00 Cyclobenzaprine 10 Mg Tab PO TID PRN MUSCLE PAIN/SPASMS Dextrose 50 ml 07/31/21 16:00 Dextrose 50% In Water (25gm) 50 Ml Syringe IV Q30MIN PRN Hypoglycemia Protocol Famotidine 20 mg 07/31/21 22:00 08/01/21 10:36 Famotidine 20 Mg/2 Ml Inj IV 20 mg BID TRISTEN Administration Fentanyl 50 mcg 08/01/21 11:52 Fentanyl 100 Mcg/2 Ml Inj IV Q10MIN PRN ANALGESIA Heparin Sodium (Porcine) 4,500 unit 07/31/21 15:35 Heparin 10,000 Units/10 Ml Vial 40 unit/kg (4500 unit) IV Q6H PRN Anti-Xa Assay < 0.1 units/ml Hydromorphone HCl 0.25 mg 07/31/21 11:44 08/01/21 00:58 Hydromorphone 1 Mg/1 Ml Inj IV 0.25 mg Q4H PRN Administration Pain, Moderate (4-6) Hydromorphone HCl 0.5 mg 07/31/21 11:44 Hydromorphone 1 Mg/1 Ml Inj IV Q23H PRN Pain , Severe (7-10) Hydrophilic Ointment 1 applic 07/31/21 15:23 Lip Therapy Vaseline TP Q2HR PRN Dry Lips Levofloxacin/Dextrose 750 mg in 150 mls @ 100 mls/hr 08/02/21 15:00 07/31/21 15:00 Levaquin 750mg/150ml IV 100 mls/hr Q48H TRISTEN Administration Protocol Sodium Chloride 1,000 mls @ 100 mls/hr 07/31/21 15:45 Nacl 0.9% 1000 Ml IV DIRECT TRISTEN Heparin Sodium/Sodium Chloride 25,000 unit in 500 mls @ 20 mls/hr 07/31/21 16:00 08/01/21 12:13 Heparin/ 0.45% Nacl-25,000 Unit/500 Ml IV 1,000 units/hr TITRATE TRISTEN 20 mls/hr Administration Protocol 1,000 UNITS/HR Propofol 1,000 mg in 100 mls @ 3.402 mls/hr 07/31/21 16:00 08/01/21 11:52 Diprivan 10 Mg/Ml IV 30 mcg/kg/min TITR TRISTEN 20.412 mls/hr Administration Protocol 5 MCG/KG/MIN Norepinephrine 4 mg in 250 mls @ 18.75 mls/hr 07/31/21 17:00 Levophed Drip 4 Mg/Ns 250 Ml IV TITR TRISTEN Protocol 5 MCG/MIN Fentanyl Citrate 2,000 mcg in 100 mls @ 5.67 mls/hr 08/01/21 12:00 08/01/21 12:53 Fentanyl Drip Premix IV 1 mcg/kg/hr TITR TRISTEN 5.67 mls/hr Administration Protocol 1 MCG/KG/HR Insulin Human Isoph/Insulin Regular 15 unit 08/01/21 09:00 08/01/21 09:08 Insulin Nph/Regular 70/30 Inj SUB-Q 15 unit BIDDIAB [facility] Administration Insulin Human Lispro 0 unit 07/31/21 18:00 08/01/21 13:25 Insulin Lispro 100 Unit/Ml SUB-Q 12 unit Q6HR [facility] Administration Protocol Methylprednisolone Sodium Succinate 40 mg 07/31/21 14:00 08/01/21 08:01 Methylprednisolone Sod Succinate 40 Mg/1 Ml Inj IV 40 mg Q8HR [facility] Administration Multi-Ingred Cream/Lotion/Oil/Oint 1 applic 07/31/21 15:23 Mineral Oil/Petrolatum, White Ophth Oint 3.5 Gm OU Q4HR PRN Dry Eye(s) Ondansetron HCl 4 mg 07/31/21 11:44 Ondansetron 4 Mg/2 Ml Inj IV Q8H PRN Nausea And Vomiting Oxycodone/Acetaminophen 1 tab 07/31/21 11:44 Oxycodone /Acetaminophen 5-325mg Tab PO Q16H PRN Pain, Moderate (4-6) Senna/Docusate Sodium 1 tab 07/31/21 22:00 08/01/21 10:39 Sennosides/Docusate Sodium 8.6/50 Mg Tab FEEDTUBE Not Given BID [facility] Sodium Chloride 10 ml 07/31/21 22:00 08/01/21 10:37 Sodium Chloride 0.9% 10 Ml Flush Syringe IV 10 ml BID TRISTEN Administration Sodium Chloride 10 ml 07/31/21 11:44 Sodium Chloride 0.9% 10 Ml Flush Syringe IV PRN PRN LINE FLUSH Zinc Sulfate 220 mg 07/31/21 22:00 08/01/21 10:39 Zinc Sulfate 220 Mg Cap PO Not Given BID TRISTEN Nutrition/Malnutrition Assess - Dietary Evaluation Nutrition/Malnutrition Findings: Nutrition Notes Start: 08/01/21 12:02 Freq: Status: Active Protocol: Document 08/01/21 12:03 [facility] (Rec: 08/01/21 12:12 [facility] [id number]) Nutrition Notes Need for Assessment generated from: MD Order Initial or Follow up Assessment Current Diagnosis Acute Kidney Injury,Diabetes, Sepsis,Hypertension,Heart Failure Other Pertinent Diagnosis Pneu, r/o COVID-19, NSTEMI, afib, RA Current Diet Cardiac Labs/Tests BUN 83 Cr 2.5 BG 410 Pertinent Medications Vit C and D3, Heparin gtt, Solumedrol, Levophed gtt, Propofol at 20.412ml/hr ( provides 539 kcal), Senokot, NS at 100ml/hr, Zinc sulfate Height 6 ft Weight 113.398 kg [place] Body Weight (kg) 72.72 BMI 33.9 Weight Status Obese Subjective/Other Information RD consulted to evaluate nutritional intake. Pt in ED at this time and intubated on vent support. Burn Absent Trauma Absent Minimum of two criteria No #1 Nutrition Diagnosis Inadequate oral intake [facility] As Evidenced by Signs and Symptoms pt NPO Is patient on ventilator? Yes Is Patient Ambulatory and/or Out of Bed No REE-([facility]-confined to bed) 2159.964 Kcal/Kg value to use for calculation 15 Approximate Energy Requirements Using 1701 kcal/Kg Calculation Used for Recommendations Kcal/kg Additional Notes Pro needs 2g/kg IBW: 145g/day Fluid needs 1ml/kcal Nutrition Intervention Change Diet Order: Advance diet when medically feasible Nutrition Support: Vital HP at 65ml/hr if unable to advance diet within 24- 48hrs. Goal #1 Eiter advance diet or start EN support to meet nutrient needs Anticipated Discharge Needs: Unable to identify at this time Follow-Up By: 08/03/21 Additional Comments F/U: transfer to ICU, diet advancement vs TF consult, vent status <TALIA MCGINNIS - Last Filed: 08/02/21 07:28> Assessment and Plan Assessment and plan: I saw and evaluated the patient. I agree with the findings and the plan of care as documented in the Nurse Practitioner's~note, with the following corrections and additions. Hospitalist Physical - Constitutional Vitals: Temp Pulse Resp BP Pulse Ox 97.7 F 61 21 175/79 97 08/02/21 01:00 08/02/21 05:01 08/02/21 05:01 08/02/21 05:01 08/02/21 05:01 HEART Score - HEART Score Troponin: Troponin T < 0.010 ng/mL (0.00-0.029) 08/02/21 03:49 Results - Labs CBC & Chem 7: 08/02/21 03:49 08/02/21 03:49 Labs: Laboratory Last Values WBC 20.2 K/mm3 (4.5-11.0) H 08/02/21 03:49 RBC 3.81 M/mm3 (3.65-5.03) 08/02/21 03:49 Hgb 11.6 gm/dl (10.1-14.3) 08/02/21 03:49 Hct 34.9 % (30.3-42.9) 08/02/21 03:49 MCV 92 fl (79-97) 08/02/21 03:49 MCH 30 pg (28-32) 08/02/21 03:49 MCHC 33 % (30-34) 08/02/21 03:49 RDW 14.4 % (13.2-15.2) 08/02/21 03:49 Plt Count 197 K/mm3 (140-440) 08/02/21 03:49 Add Manual Diff Complete 08/01/21 05:44 Total Counted 100 08/01/21 05:44 Seg Neuts % (Manual) 88.0 % (40.0-70.0) H 08/01/21 05:44 Band Neutrophils % 4.0 % 08/01/21 05:44 Lymphocytes % (Manual) 6.0 % (13.4-35.0) L 08/01/21 05:44 Monocytes % (Manual) 1.0 % (0.0-7.3) 08/01/21 05:44 Metamyelocytes % 1.0 % 08/01/21 05:44 Nucleated RBC % 2.0 % (0.0-0.9) H 08/01/21 05:44 Seg Neutrophils # Man 14.0 K/mm3 (1.8-7.7) H 08/01/21 05:44 Band Neutrophils # 0.6 K/mm3 08/01/21 05:44 Lymphocytes # (Manual) 1.0 K/mm3 (1.2-5.4) L 08/01/21 05:44 Abs React Lymphs (Man) 0.0 K/mm3 08/01/21 05:44 Monocytes # (Manual) 0.2 K/mm3 (0.0-0.8) 08/01/21 05:44 Eosinophils # (Manual) 0.0 K/mm3 (0.0-0.4) 08/01/21 05:44 Basophils # (Manual) 0.0 K/mm3 (0.0-0.1) 08/01/21 05:44 Metamyelocytes # 0.2 K/mm3 08/01/21 05:44 Myelocytes # 0.0 K/mm3 08/01/21 05:44 Promyelocytes # 0.0 K/mm3 08/01/21 05:44 Blast Cells # 0.0 K/mm3 08/01/21 05:44 WBC Morphology Not Reportable 08/01/21 05:44 Hypersegmented Neuts Not Reportable 08/01/21 05:44 Hyposegmented Neuts Not Reportable 08/01/21 05:44 Hypogranular Neuts Not Reportable 08/01/21 05:44 Smudge Cells Not Reportable 08/01/21 05:44 Toxic Granulation Not Reportable 08/01/21 05:44 Toxic Vacuolation Not Reportable 08/01/21 05:44 Dohle Bodies Not Reportable 08/01/21 05:44 Pelger-Huet Anomaly Not Reportable 08/01/21 05:44 Prasad Rods Not Reportable 08/01/21 05:44 Platelet Estimate Consistent w auto 08/01/21 05:44 Clumped Platelets Not Reportable 08/01/21 05:44 Plt Clumps, EDTA Not Reportable 08/01/21 05:44 Large Platelets Not Reportable 08/01/21 05:44 Giant Platelets Not Reportable 08/01/21 05:44 Platelet Satelliting Not Reportable 08/01/21 05:44 Plt Morphology Comment Not Reportable 08/01/21 05:44 RBC Morphology Not Reportable 08/01/21 05:44 Dimorphic RBCs Not Reportable 08/01/21 05:44 Polychromasia Few 08/01/21 05:44 Hypochromasia Not Reportable 08/01/21 05:44 Poikilocytosis 1+ 08/01/21 05:44 Anisocytosis 1+ 08/01/21 05:44 Microcytosis Not Reportable 08/01/21 05:44 Macrocytosis Not Reportable 08/01/21 05:44 Spherocytes Not Reportable 08/01/21 05:44 Pappenheimer Bodies Not Reportable 08/01/21 05:44 Sickle Cells Not Reportable 08/01/21 05:44 Target Cells Not Reportable 08/01/21 05:44 Tear Drop Cells Not Reportable 08/01/21 05:44 Ovalocytes Not Reportable 08/01/21 05:44 Helmet Cells Not Reportable 08/01/21 05:44 [place] Bodies Not Reportable 08/01/21 05:44 [place] Rings Not Reportable 08/01/21 05:44 [place] Cells 1+ 08/01/21 05:44 Bite Cells Not Reportable 08/01/21 05:44 Crenated Cell Not Reportable 08/01/21 05:44 Elliptocytes Not Reportable 08/01/21 05:44 Acanthocytes (Spur) Not Reportable 08/01/21 05:44 Rouleaux Not Reportable 08/01/21 05:44 Hemoglobin C Crystals Not Reportable 08/01/21 05:44 Schistocytes Not Reportable 08/01/21 05:44 Malaria parasites Not Reportable 08/01/21 05:44 Bertrand Bodies Not Reportable 08/01/21 05:44 Hem Pathologist Commnt No 08/01/21 05:44 PT 18.5 Sec. (12.2-14.9) H 07/31/21 18:30 INR 1.39 (0.87-1.13) H 07/31/21 18:30 APTT 28.4 Sec. (24.2-36.6) 07/31/21 18:30 D-Dimer 2619.75 ng/mlDDU (0-234) H 07/31/21 09:46 Heparin Anti-Xa Level 0.66 U.I./ml (0.3-0.7) 08/02/21 01:40 ABG pH 7.336 (7.320-7.450) 08/02/21 02:51 POC ABG pCO2 36.9 mmHg (32.0-48.0) 08/02/21 02:51 ABG pCO2 41.4 mm Hg 07/31/21 18:10 POC ABG pO2 79.6 mmHg (83-108) L 08/02/21 02:51 ABG pO2 151.8 mm Hg (80.0-90.0) H 07/31/21 18:10 POC ABG HCO3 19.3 08/02/21 02:51 ABG HCO3 20.8 mmol/L (20.0-26.0) 07/31/21 18:10 ABG O2 Saturation 95 (0-100) 08/02/21 02:51 ABG O2 Content 17.4 (0.0-44) 07/31/21 18:10 POC ABG Base Excess -5.9 08/02/21 02:51 ABG Base Excess -5.0 mmol/L (-2.0-3.0) L 07/31/21 18:10 ABG Hemoglobin 13.2 (12.0-17.5) 08/02/21 02:51 ABG Oxyhemoglobin 94.3 (94-98) 08/02/21 02:51 ABG Carboxyhemoglobin 1.0 % (0.0-5.0) 07/31/21 18:10 ABG Methemoglobin 0.3 (0.0-1.5) 08/02/21 02:51 ABG Sodium 139.2 mmol/L (136.0-145.0) 08/02/21 02:51 ABG Potassium 4.2 mmol/L (3.40-4.50) 08/02/21 02:51 ABG Chloride 106.0 mmol/L (98-107) 08/02/21 02:51 ABG Glucose 367 mg/dL (65-95) H 08/02/21 02:51 Oxyhemoglobin 97.1 % (95.0-99.0) 07/31/21 18:10 Carboxyhemoglobin 0.4 (0.5-1.5) L 08/02/21 02:51 FiO2 100 % 07/31/21 18:10 FiO2 % 70 08/02/21 02:51 Sodium 140 mmol/L (137-145) 08/02/21 03:49 Potassium 4.3 mmol/L (3.6-5.0) 08/02/21 03:49 Chloride 104.1 mmol/L (98-107) 08/02/21 03:49 Carbon Dioxide 19 mmol/L (22-30) L 08/02/21 03:49 Anion Gap 21 mmol/L 08/02/21 03:49 BUN 77 mg/dL (7-17) H 08/02/21 03:49 Creatinine 2.0 mg/dL (0.6-1.2) H 08/02/21 03:49 Estimated GFR 30 ml/min 08/02/21 03:49 BUN/Creatinine Ratio 39 % 08/02/21 03:49 Glucose 357 mg/dL (65-100) H 08/02/21 03:49 POC Glucose 274 mg/dL (70-105) H 08/02/21 05:57 Lactic Acid 1.90 mmol/L (0.7-2.0) 08/01/21 05:44 Calcium 9.4 mg/dL (8.4-10.2) 08/02/21 03:49 Ferritin 4832.0 ng/mL (10.0-200.0) H 07/31/21 11:09 Total Bilirubin 0.60 mg/dL (0.1-1.2) 08/02/21 03:49 AST 27 units/L (5-40) 08/02/21 03:49 ALT 21 units/L (7-56) 08/02/21 03:49 Alkaline Phosphatase 83 units/L (35-129) 08/02/21 03:49 Lactate Dehydrogenase 1809 units/L (91-180) H 07/31/21 11:09 Troponin T < 0.010 ng/mL (0.00-0.029) 08/02/21 03:49 C-Reactive Protein 32.70 mg/dL (0.00-1.30) H 07/31/21 11:09 NT-Pro-B Natriuret Pep 8486 pg/mL (0-900) H 07/31/21 09:46 Total Protein 6.4 g/dL (6.3-8.2) 08/02/21 03:49 Albumin 2.7 g/dL (3.9-5) L 08/02/21 03:49 Albumin/Globulin Ratio 0.7 % 08/02/21 03:49 Triglycerides 235 mg/dL (2-149) H 07/31/21 09:27 Cholesterol 125 mg/dL (50-199) 07/31/21 09:27 LDL Cholesterol Direct 50 mg/dL (50-130) 07/31/21 09:27 HDL Cholesterol 29 mg/dL (40-59) L 07/31/21 09:27 Cholesterol/HDL Ratio 4.31 % 07/31/21 09:27 Procalcitonin 2.12 ng/mL (<0.15) 07/31/21 11:09 Arterial Blood Glucose 367 mg/dL (65-95) H 08/02/21 02:51 Coronavirus (PCR) Positive (Negative) A 08/01/21 09:00 Blood Type O POSITIVE 07/31/21 18:30 Antibody Screen Negative 07/31/21 18:30 Microbiology: Microbiology 07/31/21 17:17 Tracheal Aspirate Sputum Culture - Preliminary 07/31/21 11:09 Peripheral/Venous Blood Culture - Preliminary NO GROWTH AFTER 24 HOURS 07/31/21 11:09 Peripheral/Venous Blood Culture - Preliminary NO GROWTH AFTER 24 HOURS Asher/IV: Voiding Method Indwelling Catheter Active Medications - Current Medications Current Medications: Generic Name Dose Route Start Last Admin Trade Name Freq PRN Reason Stop Dose Admin Acetaminophen 650 mg 07/31/21 11:44 Acetaminophen 325 Mg Tab PO Q4H PRN Pain MILD(1-3)/Fever >100.5/PIERCE Albuterol 2.5 mg 07/31/21 11:44 Albuterol 2.5 Mg/3 Ml Nebu IH Q4HRT PRN Shortness Of Breath Ascorbic Acid 500 mg 07/31/21 22:00 08/01/21 22:18 Ascorbic Acid 500 Mg Tab PO Not Given BID TRISTEN Azithromycin 250 mg 08/01/21 12:00 08/01/21 14:20 Azithromycin 250 Mg Tab PO 250 mg QDAY TRISTEN Administration Protocol Cholecalciferol 1,000 unit 08/01/21 10:00 08/01/21 11:54 Cholecalciferol (Vit D3) 400 Unit Tab PO Not Given QDAY TRISTEN Cyclobenzaprine HCl 10 mg 07/31/21 12:00 Cyclobenzaprine 10 Mg Tab PO TID PRN MUSCLE PAIN/SPASMS Dextrose 50 ml 07/31/21 16:00 Dextrose 50% In Water (25gm) 50 Ml Syringe IV Q30MIN PRN Hypoglycemia Protocol Famotidine 20 mg 07/31/21 22:00 08/01/21 22:29 Famotidine 20 Mg/2 Ml Inj IV 20 mg BID TRISTEN Administration Fentanyl 50 mcg 08/01/21 11:52 Fentanyl 100 Mcg/2 Ml Inj IV Q10MIN PRN ANALGESIA Heparin Sodium (Porcine) 4,500 unit 07/31/21 15:35 Heparin 10,000 Units/10 Ml Vial 40 unit/kg (4500 unit) IV Q6H PRN Anti-Xa Assay < 0.1 units/ml Hydromorphone HCl 0.25 mg 07/31/21 11:44 08/01/21 00:58 Hydromorphone 1 Mg/1 Ml Inj IV 0.25 mg Q4H PRN Administration Pain, Moderate (4-6) Hydromorphone HCl 0.5 mg 07/31/21 11:44 Hydromorphone 1 Mg/1 Ml Inj IV Q23H PRN Pain , Severe (7-10) Hydrophilic Ointment 1 applic 07/31/21 15:23 Lip Therapy Vaseline TP Q2HR PRN Dry Lips Levofloxacin/Dextrose 750 mg in 150 mls @ 100 mls/hr 08/02/21 15:00 07/31/21 15:00 Levaquin 750mg/150ml IV 100 mls/hr Q48H TRISTEN Administration Protocol Sodium Chloride 1,000 mls @ 100 mls/hr 07/31/21 15:45 08/02/21 06:44 Nacl 0.9% 1000 Ml IV 100 mls/hr DIRECT TRSITEN Administration Heparin Sodium/Sodium Chloride 25,000 unit in 500 mls @ 20 mls/hr 07/31/21 16:00 08/02/21 02:30 Heparin/ 0.45% Nacl-25,000 Unit/500 Ml IV 700 units/hr TITRATE TRISTEN 14 mls/hr Titration Protocol 1,000 UNITS/HR Propofol 1,000 mg in 100 mls @ 3.402 mls/hr 07/31/21 16:00 08/02/21 05:24 Diprivan 10 Mg/Ml IV 30 mcg/kg/min TITR TRISTEN 20.412 mls/hr Administration Protocol 5 MCG/KG/MIN Norepinephrine 4 mg in 250 mls @ 18.75 mls/hr 07/31/21 17:00 08/02/21 06:47 Levophed Drip 4 Mg/Ns 250 Ml IV 4 mcg/min TITR TRISTEN 15 mls/hr Titration Protocol 5 MCG/MIN Fentanyl Citrate 2,000 mcg in 100 mls @ 5.67 mls/hr 08/01/21 12:00 08/02/21 04:59 Fentanyl Drip Premix IV 1 mcg/kg/hr TITR TRISTEN 5.67 mls/hr Administration Protocol 1 MCG/KG/HR Insulin Human Isoph/Insulin Regular 15 unit 08/01/21 09:00 08/01/21 19:08 Insulin Nph/Regular 70/30 Inj SUB-Q Not Given BIDDIAB [facility] Insulin Human Lispro 0 unit 07/31/21 18:00 08/02/21 06:43 Insulin Lispro 100 Unit/Ml SUB-Q 9 unit Q6HR [facility] Administration Protocol Methylprednisolone Sodium Succinate 40 mg 07/31/21 14:00 08/02/21 06:43 Methylprednisolone Sod Succinate 40 Mg/1 Ml Inj IV 40 mg Q8HR [facility] Administration Multi-Ingred Cream/Lotion/Oil/Oint 1 applic 07/31/21 15:23 Mineral Oil/Petrolatum, White Ophth Oint 3.5 Gm OU Q4HR PRN Dry Eye(s) Ondansetron HCl 4 mg 07/31/21 11:44 Ondansetron 4 Mg/2 Ml Inj IV Q8H PRN Nausea And Vomiting Oxycodone/Acetaminophen 1 tab 07/31/21 11:44 Oxycodone /Acetaminophen 5-325mg Tab PO Q16H PRN Pain, Moderate (4-6) Senna/Docusate Sodium 1 tab 07/31/21 22:00 08/01/21 22:18 Sennosides/Docusate Sodium 8.6/50 Mg Tab FEEDTUBE Not Given BID [facility] Sodium Chloride 10 ml 10/15/21 22:00 08/01/21 22:29 Sodium Chloride 0.9% 10 Ml Flush Syringe IV 10 ml BID TRISTEN Administration Sodium Chloride 10 ml 07/31/21 11:44 Sodium Chloride 0.9% 10 Ml Flush Syringe IV PRN PRN LINE FLUSH Zinc Sulfate 220 mg 07/31/21 22:00 08/01/21 22:19 Zinc Sulfate 220 Mg Cap PO Not Given BID TRISTEN Nutrition/Malnutrition Assess - Dietary Evaluation Nutrition/Malnutrition Findings: Nutrition Notes Start: 08/01/21 12:02 Freq: Status: Active Protocol: Document 08/01/21 12:03 NHALL (Rec: 08/01/21 12:12 NHALL [id number]) Nutrition Notes Need for Assessment generated from: MD Order Initial or Follow up Assessment Current Diagnosis Acute Kidney Injury,Diabetes, Sepsis,Hypertension,Heart Failure Other Pertinent Diagnosis Pneu, r/o COVID-19, NSTEMI, afib, RA Current Diet Cardiac Labs/Tests BUN 83 Cr 2.5 BG 410 Pertinent Medications Vit C and D3, Heparin gtt, Solumedrol, Levophed gtt, Propofol at 20.412ml/hr ( provides 539 kcal), Senokot, NS at 100ml/hr, Zinc sulfate Height 6 ft Weight 113.398 kg [place] Body Weight (kg) 72.72 BMI 33.9 Weight Status Obese Subjective/Other Information RD consulted to evaluate nutritional intake. Pt in ED at this time and intubated on vent support. Burn Absent Trauma Absent Minimum of two criteria No #1 Nutrition Diagnosis Inadequate oral intake [facility] As Evidenced by Signs and Symptoms pt NPO Is patient on ventilator? Yes Is Patient Ambulatory and/or Out of Bed No REE-([facility]-confined to bed) 2159.964 Kcal/Kg value to use for calculation 15 Approximate Energy Requirements Using 1701 kcal/Kg Calculation Used for Recommendations Kcal/kg Additional Notes Pro needs 2g/kg IBW: 145g/day Fluid needs 1ml/kcal Nutrition Intervention Change Diet Order: Advance diet when medically feasible Nutrition Support: Vital HP at 65ml/hr if unable to advance diet within 24- 48hrs. Goal #1 Eiter advance diet or start EN support to meet nutrient needs Anticipated Discharge Needs: Unable to identify at this time Follow-Up By: 10/18/21 Additional Comments F/U: transfer to ICU, diet advancement vs TF consult, vent status
[2021-08-01] MEDS: AZITHROMYCIN 250 MG TAB PO SCH (14:20)
--- NOTE | 2021-08-01 15:31 | Progress Note ---
Subjective Date of service: 08/01/21 Objective Vital Signs - 12hr 08/01/21 08/01/21 08/01/21 04:00 05:38 06:30 Temperature Pulse Rate 65 76 73 Respiratory 32 H 31 H Rate Blood Pressure 137/63 112/49 101/56 Blood Pressure [Left] O2 Sat by Pulse 97 100 99 Oximetry 08/01/21 08/01/21 08/01/21 07:00 07:30 07:33 Temperature Pulse Rate 61 66 Respiratory 33 H 21 Rate Blood Pressure 100/59 121/78 Blood Pressure 121/78 [Left] O2 Sat by Pulse 98 95 98 Oximetry 08/01/21 08/01/21 08/01/21 08:00 08:14 08:30 Temperature Pulse Rate 72 74 76 Respiratory 31 H 28 H Rate Blood Pressure 115/65 115/63 107/68 Blood Pressure [Left] O2 Sat by Pulse 100 100 99 Oximetry 08/01/21 08/01/21 08/01/21 09:00 09:30 10:00 Temperature 96.4 F L Pulse Rate 71 72 74 Respiratory 29 H 24 24 Rate Blood Pressure 163/84 165/90 158/75 Blood Pressure 163/84 [Left] O2 Sat by Pulse 100 100 100 Oximetry 08/01/21 08/01/21 08/01/21 10:11 10:12 10:30 Temperature 96.7 F L Pulse Rate 74 67 Respiratory 34 H Rate Blood Pressure 145/90 Blood Pressure [Left] O2 Sat by Pulse 98 Oximetry 08/01/21 08/01/21 08/01/21 10:41 11:01 11:31 Temperature 96.0 F L Pulse Rate 74 75 71 Respiratory 29 H 20 28 H Rate Blood Pressure 152/87 Blood Pressure 145/90 [Left] O2 Sat by Pulse 100 100 100 Oximetry 08/01/21 08/01/21 08/01/21 11:47 12:01 12:31 Temperature Pulse Rate 69 71 67 Respiratory 29 H 22 Rate Blood Pressure 152/87 146/83 159/92 Blood Pressure [Left] O2 Sat by Pulse 100 97 100 Oximetry 08/01/21 08/01/21 08/01/21 13:01 13:08 13:10 Temperature 97.2 F L Pulse Rate 67 67 76 Respiratory 26 H 23 Rate Blood Pressure 170/94 Blood Pressure 170/94 [Left] O2 Sat by Pulse 100 100 Oximetry 08/01/21 08/01/21 08/01/21 13:31 14:01 14:34 Temperature Pulse Rate 74 81 76 Respiratory 33 H 26 H Rate Blood Pressure 140/83 155/83 136/86 Blood Pressure [Left] O2 Sat by Pulse 100 99 98 Oximetry 08/01/21 15:01 Temperature Pulse Rate 66 Respiratory 24 Rate Blood Pressure 129/72 Blood Pressure [Left] O2 Sat by Pulse 98 Oximetry CBC and BMP: 08/01/21 05:44 08/01/21 05:44 ABG, PT/INR, D-dimer: ABG ABG pH 7.344 (7.320-7.450) 08/01/21 06:33 POC ABG pCO2 30.9 mmHg (32.0-48.0) L 08/01/21 06:33 ABG pCO2 41.4 mm Hg 07/31/21 18:10 POC ABG pO2 151.8 mmHg (83-108) H 08/01/21 06:33 ABG pO2 151.8 mm Hg (80.0-90.0) H 07/31/21 18:10 POC ABG HCO3 16.4 08/01/21 06:33 ABG O2 Saturation 99.0 (0-100) 08/01/21 06:33 PT/INR, D-dimer PT 18.5 Sec. (12.2-14.9) H 07/31/21 18:30 INR 1.39 (0.87-1.13) H 07/31/21 18:30 D-Dimer 2619.75 ng/mlDDU (0-234) H 07/31/21 09:46 Abnormal lab findings: Abnormal Labs 07/31/21 07/31/21 07/31/21 09:27 09:27 09:46 WBC 15.5 H Hgb 14.5 H Hct 44.7 H Seg Neuts % (Manual) 77.0 H Lymphocytes % (Manual) 10.0 L Monocytes % (Manual) 13.0 H Nucleated RBC % Seg Neutrophils # Man 11.9 H Lymphocytes # (Manual) Monocytes # (Manual) 2.0 H PT 17.0 H INR 1.25 H D-Dimer 2619.75 H ABG pH POC ABG pCO2 POC ABG pO2 ABG pO2 ABG O2 Saturation ABG Base Excess ABG Oxyhemoglobin ABG Sodium ABG Glucose Oxyhemoglobin Sodium Chloride Carbon Dioxide BUN Creatinine Glucose POC Glucose Ferritin AST Lactate Dehydrogenase Troponin T 0.069 H C-Reactive Protein NT-Pro-B Natriuret Pep Total Protein Albumin Triglycerides 235 H HDL Cholesterol 29 L Arterial Blood Glucose Coronavirus (PCR) 07/31/21 07/31/21 07/31/21 09:46 10:48 11:09 WBC Hgb Hct Seg Neuts % (Manual) Lymphocytes % (Manual) Monocytes % (Manual) Nucleated RBC % Seg Neutrophils # Man Lymphocytes # (Manual) Monocytes # (Manual) PT INR D-Dimer ABG pH POC ABG pCO2 POC ABG pO2 ABG pO2 ABG O2 Saturation ABG Base Excess ABG Oxyhemoglobin ABG Sodium ABG Glucose Oxyhemoglobin Sodium 135 L Chloride 93.6 L Carbon Dioxide 17 L BUN 71 H Creatinine 2.7 H Glucose 468 H POC Glucose 458 H Ferritin 4832.0 H AST 79 H Lactate Dehydrogenase Troponin T C-Reactive Protein NT-Pro-B Natriuret Pep 8486 H Total Protein Albumin 3.4 L Triglycerides HDL Cholesterol Arterial Blood Glucose Coronavirus (PCR) 07/31/21 07/31/21 07/31/21 11:09 13:03 17:58 WBC Hgb Hct Seg Neuts % (Manual) Lymphocytes % (Manual) Monocytes % (Manual) Nucleated RBC % Seg Neutrophils # Man Lymphocytes # (Manual) Monocytes # (Manual) PT INR D-Dimer ABG pH POC ABG pCO2 POC ABG pO2 ABG pO2 62.5 L ABG O2 Saturation 90.0 L ABG Base Excess -3.0 L ABG Oxyhemoglobin ABG Sodium ABG Glucose Oxyhemoglobin 88.3 L Sodium Chloride Carbon Dioxide BUN Creatinine Glucose POC Glucose 400 H Ferritin AST Lactate Dehydrogenase 1809 H Troponin T C-Reactive Protein 32.70 H NT-Pro-B Natriuret Pep Total Protein Albumin Triglycerides HDL Cholesterol Arterial Blood Glucose Coronavirus (PCR) 07/31/21 07/31/21 07/31/21 18:10 18:30 20:10 WBC Hgb Hct Seg Neuts % (Manual) Lymphocytes % (Manual) Monocytes % (Manual) Nucleated RBC % Seg Neutrophils # Man Lymphocytes # (Manual) Monocytes # (Manual) PT 18.5 H INR 1.39 H D-Dimer ABG pH 7.319 L POC ABG pCO2 POC ABG pO2 ABG pO2 151.8 H ABG O2 Saturation ABG Base Excess -5.0 L ABG Oxyhemoglobin ABG Sodium ABG Glucose Oxyhemoglobin Sodium Chloride Carbon Dioxide BUN Creatinine Glucose POC Glucose 428 H Ferritin AST Lactate Dehydrogenase Troponin T C-Reactive Protein NT-Pro-B Natriuret Pep Total Protein Albumin Triglycerides HDL Cholesterol Arterial Blood Glucose Coronavirus (PCR) 08/01/21 08/01/21 08/01/21 00:28 05:44 05:44 WBC 15.9 H Hgb Hct Seg Neuts % (Manual) 88.0 H Lymphocytes % (Manual) 6.0 L Monocytes % (Manual) Nucleated RBC % 2.0 H Seg Neutrophils # Man 14.0 H Lymphocytes # (Manual) 1.0 L Monocytes # (Manual) PT INR D-Dimer ABG pH POC ABG pCO2 POC ABG pO2 ABG pO2 ABG O2 Saturation ABG Base Excess ABG Oxyhemoglobin ABG Sodium ABG Glucose Oxyhemoglobin Sodium Chloride Carbon Dioxide 21 L BUN 83 H Creatinine 2.5 H Glucose 410 H POC Glucose 377 H Ferritin AST 46 H Lactate Dehydrogenase Troponin T C-Reactive Protein NT-Pro-B Natriuret Pep Total Protein 6.2 L D Albumin 2.8 L Triglycerides HDL Cholesterol Arterial Blood Glucose Coronavirus (PCR) 08/01/21 08/01/21 08/01/21 06:33 07:56 09:00 WBC Hgb Hct Seg Neuts % (Manual) Lymphocytes % (Manual) Monocytes % (Manual) Nucleated RBC % Seg Neutrophils # Man Lymphocytes # (Manual) Monocytes # (Manual) PT INR D-Dimer ABG pH POC ABG pCO2 30.9 L POC ABG pO2 151.8 H ABG pO2 ABG O2 Saturation ABG Base Excess ABG Oxyhemoglobin 98.2 H ABG Sodium 134.8 L ABG Glucose 391 H Oxyhemoglobin Sodium Chloride Carbon Dioxide BUN Creatinine Glucose POC Glucose 345 H Ferritin AST Lactate Dehydrogenase Troponin T C-Reactive Protein NT-Pro-B Natriuret Pep Total Protein Albumin Triglycerides HDL Cholesterol Arterial Blood Glucose 391 H Coronavirus (PCR) Positive A 08/01/21 13:17 WBC Hgb Hct Seg Neuts % (Manual) Lymphocytes % (Manual) Monocytes % (Manual) Nucleated RBC % Seg Neutrophils # Man Lymphocytes # (Manual) Monocytes # (Manual) PT INR D-Dimer ABG pH POC ABG pCO2 POC ABG pO2 ABG pO2 ABG O2 Saturation ABG Base Excess ABG Oxyhemoglobin ABG Sodium ABG Glucose Oxyhemoglobin Sodium Chloride Carbon Dioxide BUN Creatinine Glucose POC Glucose 345 H Ferritin AST Lactate Dehydrogenase Troponin T C-Reactive Protein NT-Pro-B Natriuret Pep Total Protein Albumin Triglycerides HDL Cholesterol Arterial Blood Glucose Coronavirus (PCR)
--- NOTE | 2021-08-01 16:00 | Event Note ---
Date: 08/01/21 Placed a call and spoke with patient's daughter, Ophelia Spivey at [phone]. She was updated on patient's status, all question and concerns were addressed at this time. The care team will continue to follow up.
--- NOTE | 2021-08-01 17:33 | Progress Note ---
Assessment and Plan Echo reviewed - EF 50-55%, RV mildly hypokinetic, mild AR, no evidence of , mild TR, RVSP 48mmHg. Continue anticoagulation with heparin gtt. Trend cardiac enzymes. Further mgmt of COVID-19 infection as per Primary teams. Pt seen in conjunction with Dr. Marks, who agrees with the assessment and plan of care. - Patient Problems (1) Acute hypoxemic respiratory failure Current Visit: Yes Status: Acute (2) Sepsis Current Visit: Yes Status: Acute (3) Pneumonia due to COVID-19 virus Current Visit: Yes Status: Acute (4) Elevated d-dimer Current Visit: Yes Status: Acute (5) NSTEMI (non-ST elevated myocardial infarction) Current Visit: Yes Status: Acute Plan to address problem: ?Type 2 (6) RHINA (acute kidney injury) Current Visit: Yes Status: Acute (7) Paroxysmal atrial fibrillation Current Visit: Yes Status: Chronic (8) HTN (hypertension) Current Visit: Yes Status: Chronic Qualifiers: Hypertension type: primary hypertension Qualified Code(s): I10 - Essential (primary) hypertension (9) Diabetes mellitus Current Visit: Yes Status: Chronic Subjective Date of service: 08/01/21 Principal diagnosis: COVID-19 PNA Interval history: Agitated. Intubated and on Fentanyl & Propofol gtts. Not currently requiring vasopressor support. Objective Last Vital Signs Temp 97.7 F 08/01/21 15:49 Pulse 63 08/01/21 15:31 Resp 23 08/01/21 15:31 BP 141/73 08/01/21 15:31 Pulse Ox 97 08/01/21 15:31 - Labs and Meds Cardiac Enzymes 08/01/21 Range/Units 05:44 AST 46 H (5-40) units/L Coagulation 07/31/21 Range/Units 18:30 PT 18.5 H (12.2-14.9) Sec. INR 1.39 H (0.87-1.13) APTT 28.4 (24.2-36.6) Sec. CBC 07/31/21 07/31/21 08/01/21 Range/Units 09:27 18:30 05:44 WBC 15.9 H (4.5-11.0) K/mm3 RBC 4.05 (3.65-5.03) M/mm3 Hgb 12.4 12.1 (10.1-14.3) gm/dl Hct 37.1 D 37.2 (30.3-42.9) % Plt Count 217 214 187 (140-440) K/mm3 Comprehensive Metabolic Panel 08/01/21 Range/Units 05:44 Sodium 139 (137-145) mmol/L Potassium 4.8 (3.6-5.0) mmol/L Chloride 102.5 (98-107) mmol/L Carbon Dioxide 21 L (22-30) mmol/L BUN 83 H (7-17) mg/dL Creatinine 2.5 H (0.6-1.2) mg/dL Glucose 410 H (65-100) mg/dL Calcium 8.8 (8.4-10.2) mg/dL AST 46 H (5-40) units/L ALT 26 (7-56) units/L Alkaline Phosphatase 77 (35-129) units/L Total Protein 6.2 L D (6.3-8.2) g/dL Albumin 2.8 L (3.9-5) g/dL - Imaging and Cardiology EKG: report reviewed, image reviewed Echo: report reviewed - EKG Sinus rhythms and dysrhythmias: sinus tachycardia Ventricular dysrhythmias: ventricular premature com Chamber hypertrophy or enlargement: left ventricular hypertro - Allied health notes Allied health notes reviewed: nursing
[2021-08-01] MEDS: SODIUM CHLORIDE 0.9% 1000 ML 1,000 ML IV SCH (21:19)
--- NOTE | 2021-08-01 23:28 | Cat Scan Report ---
CT CHEST WITHOUT CONTRAST INDICATION / CLINICAL INFORMATION: Pneumonia. TECHNIQUE: Axial CT images were obtained through the chest without contrast. All CT scans at this [facility] ation are performed using CT dose reduction for ALARA by means of automated exposure control. COMPARISON: Chest radiograph from earlier in the day and 07/31/2021 FINDINGS: HEART: No significant abnormality. CORONARY ARTERY CALCIFICATION: Mild. THORACIC AORTA: No significant abnormality. MEDIASTINUM / KATIE: There is mild mediastinal lymph node prominence, likely reactive. PLEURA: No pleural effusion. No pneumothorax. LUNGS: There is diffuse groundglass opacities throughout the lungs with mild consolidations in bilate ral lung bases. ADDITIONAL FINDINGS: There is an endotracheal tube which terminates 3.3 cm from the jessica. UPPER ABDOMEN: There is an enteric tube which terminates within the stomach. Status post cholecystect edu. SKELETAL SYSTEM: Scattered degeneration IMPRESSION: 1. Diffuse groundglass opacities scattered throughout the lungs which has an appearance of Covid pneu monia. There is also consolidation within the bilateral lung bases suggesting superimposed bacterial infection. Reactive mediastinal lymphadenopathy. 2. Other findings as above. Signer Name: Remi Ernst DO Signed: 08/01/2021 11:23 PM Workstation Name: [id number]
[2021-08-02] MEDS: INSULIN LISPRO 100 UNIT/ML SUB-Q SCH ×3 (01:00→12:11)
[2021-08-02 04:57] LABS: Hematocrit 34.9 % (30.3-42.9); Hemoglobin 11.6 gm/dl (10.1-14.3); Mean Corpuscular HGB Conc 33 % (30-34); Mean Corpuscular Volume 92 fl (79-97); Platelet Count 197 K/mm3 (140-440); Red Blood Count 3.81 M/mm3 (3.65-5.03); Red Cell Distribution Width 14.4 % (13.2-15.2)
[2021-08-02] MEDS: fentaNYL DRIP Premix 2,000 MCG/100 ML BAG IV SCH ×5 (04:59→22:56)
[2021-08-02 05:21] LABS: Alanine Aminotransferase 21 units/L (7-56); Albumin 2.7 g/dL (3.9-5); BUN/Creatinine Ratio 39; Blood Urea Nitrogen 77 mg/dL (7-17); Calcium 9.4 mg/dL (8.4-10.2); Hemolysis Index 4
[2021-08-02] MEDS: methylPREDNISolone Sod Succinate 40 MG/1 ML INJ IV SCH ×3 (06:43→21:35)
[2021-08-02] MEDS: SODIUM CHLORIDE 0.9% 1000 ML 1,000 ML IV SCH (06:44)
[2021-08-02] MEDS ORDERED: INSULIN REGULAR, HUMAN 100 UNITS/1 ML ONE (08:24)
[2021-08-02] MEDS ORDERED: MIDAZOLAM 2 MG/2 ML INJ IV ONE (08:37)
--- NOTE | 2021-08-02 08:44 | XRay Report ---
CHEST 1 VIEW 08/02/2021 7:34 AM INDICATION / CLINICAL INFORMATION: follow up respiratory failure. COMPARISON: One view of the chest from 08/01/2021 FINDINGS: SUPPORT DEVICES: Interval placement of an esophagogastric tube with the most distal visualized portio n projecting over the proximal stomach. Otherwise unchanged. HEART / MEDIASTINUM: Stable. LUNGS / PLEURA: Interval worsening of bilateral airspace opacities. No significant pleural effusion. No pneumothorax. ADDITIONAL FINDINGS: No significant additional findings. IMPRESSION: 1. Interval worsening of bilateral airspace disease. 2. Interval esophagogastric tube placement. No other significant interval changes. Signer Name: Kaiden Hendrickson MD Signed: 08/02/2021 8:39 AM Workstation Name: [id number]
[2021-08-02] MEDS: SENNOSIDES/DOCUSATE SODIUM 8.6/50 MG TAB FEEDTUBE SCH ×3 (09:00→21:34)
[2021-08-02] MEDS ORDERED: INSULIN NPH/REGULAR 70/30 INJ SUB-Q SCH (09:00)
[2021-08-02] MEDS: FAMOTIDINE 20 MG/2 ML INJ IV SCH ×2 (09:28→21:34)
[2021-08-02] MEDS: ZINC SULFATE 220 MG CAP PO SCH ×2 (09:28→21:34)
[2021-08-02] MEDS: ASCORBIC ACID 500 MG TAB PO SCH ×2 (09:29→21:35)
[2021-08-02] MEDS: CHOLECALCIFEROL (VIT D3) 400 UNIT TAB PO SCH (09:30)
[2021-08-02] MEDS: NORepinephrine/NS 4 MG-250 ML 4 MG/250 ML BAG IV SCH ×2 (10:40→22:57)
[2021-08-02] MEDS: AZITHROMYCIN 250 MG TAB PO SCH (10:47)
[2021-08-02] MEDS ORDERED: VANCOMYCIN 1,000 MG/20 ML IV ONE (11:45)
[2021-08-02] MEDS ORDERED: TOCILIZUMAB 800 MG in SODIUM CHLORIDE 0.9% 100 ML IV ONE (11:48)
[2021-08-02] MEDS ORDERED: VANCOMYCIN PHARMACY TO DOSE IV SCH (12:00)
[2021-08-02] MEDS ORDERED: VANCOMYCIN 2,000 MG in SODIUM CHLORIDE 0.9% 500 ML 500 ML IV ONE (13:00)
--- NOTE | 2021-08-02 13:05 | Consultation ---
History of Present Illness - Reason for Consult Consult date: 08/02/21 acute renal failure - History of Present Illness The patient is a 65 YO female with medical history significant for Morbid o besity, Diabetes, Rheumatoid arthritis, Paroxysmal A. fib and CHF who presented to [facility] ED 07/31 after feeling unwell for about a week with worsening shortness of breath. She is currently intubated and sedated, history was obtained from the chart. She was found to be hypoxic on admission. She is not vaccinated against Covid. Pt tested positive for Covid-19. CXR showed b/l airspace disease. Labs significant for wbc 20, BUN 77, Creat 2 and bicarb 19. Nephrology was consulted for evaluation and treatment of RHINA. Past History Past Medical History: arthritis, diabetes, other (See HPI.) Past Surgical History: , hysterectomy, mastectomy Social history: single. denies: smoking, alcohol abuse, prescription drug abuse Family history: diabetes, hypertension Medications and Allergies Allergies Allergy/AdvReac Type Severity Reaction Status Date / Time aspirin [From Percodan] Allergy Unknown Unverified 04/09/15 11:03 oxycodone HCl [From Percodan] Allergy Unknown Verified 08/01/21 11:12 oxycodone terephthalate Allergy Unknown Verified 08/01/21 11:12 [From Percodan] Penicillins Allergy Unknown Verified 08/20/13 14:46 Home Medications Medication Instructions Recorded Confirmed Last Taken Type Ciprofloxacin HCl [Ciprofloxacin 500 mg PO BID #14 tablet 08/20/13 Unknown Rx TAB] Cyclobenzaprine [Flexeril] 10 mg PO TID PRN 08/20/13 08/20/13 Unknown History Fluconazole [Diflucan] 50 mg PO QDAY #3 tablet 08/20/13 Unknown Rx Insulin NPH/Regular [Novolin 70/30] 15 unit SQ BID #2 vial 08/20/13 Unknown Rx Naproxen [Naprosyn] 500 mg PO BID 08/20/13 08/20/13 Unknown History Nystatin [Nystop Powder] 0 gm TP QDAY #50 gm 08/20/13 Unknown Rx amLODIPine [Norvasc] 10 mg PO DAILY #60 tab 08/20/13 Unknown Rx traMADoL [Ultram] 50 mg PO Q4HR PRN 08/20/13 08/20/13 Unknown History Active Meds: Active Medications Acetaminophen (Acetaminophen 325 Mg Tab) 650 mg PO Q4H PRN PRN Reason: Pain MILD(1-3)/Fever >100.5/PIERCE Albuterol (Albuterol 2.5 Mg/3 Ml Nebu) 2.5 mg IH Q4HRT PRN PRN Reason: Shortness Of Breath Ascorbic Acid (Ascorbic Acid 500 Mg Tab) 500 mg PO BID [facility] Last Admin: 08/02/21 09:29 Dose: 500 mg Documented by: Cholecalciferol (Cholecalciferol (Vit D3) 400 Unit Tab) 1,000 unit PO QDAY [facility] Last Admin: 08/02/21 09:30 Dose: 1,000 unit Documented by: Cyclobenzaprine HCl (Cyclobenzaprine 10 Mg Tab) 10 mg PO TID PRN PRN Reason: MUSCLE PAIN/SPASMS Last Admin: 08/02/21 09:29 Dose: 10 mg Documented by: Dextrose (Dextrose 50% In Water (25gm) 50 Ml Syringe) 50 ml IV Q30MIN PRN; Protocol PRN Reason: Hypoglycemia Famotidine (Famotidine 20 Mg/2 Ml Inj) 20 mg IV HS [facility] Fentanyl (Fentanyl 100 Mcg/2 Ml Inj) 50 mcg IV Q10MIN PRN PRN Reason: ANALGESIA Heparin Sodium (Porcine) (Heparin 10,000 Units/10 Ml Vial) 4,500 unit 40 unit/kg (4500 unit) IV Q6H PRN PRN Reason: Anti-Xa Assay < 0.1 units/ml Hydromorphone HCl (Hydromorphone 1 Mg/1 Ml Inj) 0.25 mg IV Q4H PRN PRN Reason: Pain, Moderate (4-6) Last Admin: 08/01/21 00:58 Dose: 0.25 mg Documented by: Hydromorphone HCl (Hydromorphone 1 Mg/1 Ml Inj) 0.5 mg IV Q23H PRN PRN Reason: Pain , Severe (7-10) Hydrophilic Ointment (Lip Therapy Vaseline) 1 applic TP Q2HR PRN PRN Reason: Dry Lips Levofloxacin/Dextrose (Levaquin 750mg/150ml) 750 mg in 150 mls @ 100 mls/hr IV Q48H [facility]; Protocol Last Admin: 07/31/21 15:00 Dose: 100 mls/hr Documented by: Heparin Sodium/Sodium Chloride (Heparin/ 0.45% Nacl-25,000 Unit/500 Ml) 25,000 unit in 500 mls @ 20 mls/hr IV TITRATE TRISTEN; Protocol Last Titration: 08/02/21 10:54 Dose: 950 units/hr, 19 mls/hr Documented by: Propofol (Diprivan 10 Mg/Ml) 1,000 mg in 100 mls @ 3.402 mls/hr IV TITR TRISTEN; Protocol Last Admin: 08/02/21 12:11 Dose: 50 mcg/kg/min, 34.019 mls/hr Documented by: Norepinephrine (Levophed Drip 4 Mg/Ns 250 Ml) 4 mg in 250 mls @ 18.75 mls/hr IV TITR TRISTEN; Protocol Last Admin: 08/02/21 10:40 Dose: 4 mcg/min, 15 mls/hr Documented by: Fentanyl Citrate (Fentanyl Drip Premix) 2,000 mcg in 100 mls @ 5.67 mls/hr IV TITR TRISTEN; Protocol Last Admin: 08/02/21 10:05 Dose: 4 mcg/kg/hr, 22.68 mls/hr Documented by: TOCILIZUMAB 800 mg/ Sodium (Chloride) 140 mls @ 120 mls/hr IV ONCE ONE Stop: 08/02/21 12:57 Vancomycin HCl 2,000 mg/ (Sodium Chloride) 540 mls @ 250 mls/hr IV ONCE ONE Stop: 08/02/21 15:09 Vancomycin HCl 1,750 mg/ (Sodium Chloride) 535 mls @ 333.333 mls/hr IV Q24H [facility]ST[facility] Insulin Human Isoph/Insulin Regular (Insulin Nph/Regular 70/30 Inj) 25 unit SUB-Q BIDDIAB TRISTEN Last Admin: 08/02/21 09:44 Dose: 25 unit Documented by: Insulin Human Lispro (Insulin Lispro 100 Unit/Ml) 0 unit SUB-Q Q6HR TRIST[facility]; Protocol Last Admin: 08/02/21 12:11 Dose: 9 unit Documented by: Methylprednisolone Sodium Succinate (Methylprednisolone Sod Succinate 40 Mg/1 Ml Inj) 40 mg IV Q8HR TRISTEN Last Admin: 08/02/21 06:43 Dose: 40 mg Documented by: Multi-Ingred Cream/Lotion/Oil/Oint (Mineral Oil/Petrolatum, White Ophth Oint 3.5 Gm) 1 applic OU Q4HR PRN PRN Reason: Dry Eye(s) Ondansetron HCl (Ondansetron 4 Mg/2 Ml Inj) 4 mg IV Q8H PRN PRN Reason: Nausea And Vomiting Oxycodone/Acetaminophen (Oxycodone /Acetaminophen 5-325mg Tab) 1 tab PO Q16H PRN PRN Reason: Pain, Moderate (4-6) Last Admin: 08/02/21 09:29 Dose: 1 tab Documented by: Senna/Docusate Sodium (Sennosides/Docusate Sodium 8.6/50 Mg Tab) 1 tab FEEDTUBE BID [facility] Last Admin: 08/02/21 10:46 Dose: Not Given Documented by: Sodium Chloride (Sodium Chloride 0.9% 10 Ml Flush Syringe) 10 ml IV BID [facility] Last Admin: 08/02/21 10:46 Dose: 10 ml Documented by: Sodium Chloride (Sodium Chloride 0.9% 10 Ml Flush Syringe) 10 ml IV PRN PRN PRN Reason: LINE FLUSH Zinc Sulfate (Zinc Sulfate 220 Mg Cap) 220 mg PO BID [facility] Last Admin: 08/02/21 09:28 Dose: 220 mg Documented by: Review of Systems ROS unobtainable: due to mental status Exam - Vital Signs Vital signs: Vital Signs Temp Pulse Resp BP Pulse Ox 98.7 F 113 H 22 188/122 97 07/31/21 09:10 07/31/21 09:10 07/31/21 09:10 07/31/21 09:10 07/31/21 09:10 Results - Lab Results 08/02/21 03:49 08/02/21 03:49 Most recent lab results ABG pH 7.336 (7.320-7.450) 08/02/21 02:51 ABG pCO2 41.4 mm Hg 07/31/21 18:10 ABG pO2 151.8 mm Hg (80.0-90.0) H 07/31/21 18:10 ABG HCO3 20.8 mmol/L (20.0-26.0) 07/31/21 18:10 ABG O2 Saturation 95 (0-100) 08/02/21 02:51 Calcium 9.4 mg/dL (8.4-10.2) 08/02/21 03:49 Assessment and Plan 1. Acute kidney injury: RHINA in the setting of severe Covid-19 infection and sepsis. Suspect ATN. Uurine studies and Renal US ordered. Monitor renal function. Has aceves catheter. Creatinine level improving. Renal prognosis guarded. Avoid nephrotoxic agents. Meds dosage based on GFR. 2. FEN: Anion-gap metabolic acidosis, 2/2 RHINA, monitor. Monitor lytes and volume status. 3. Acute hypoxic resp failure, POA: 2/ Covid-19 PNA. Test positive on 08/01. Currently intubated on vent. Followed by Pulmonary. 4. Covid-19 PNA, POA: Test positive for Covid-19. On Solumedrol. Monitor. 5. Sepsis, POA: 2/ COVID-19 pneumonia + bacterial PNA. Trachea aspirate grew MRSA. Multiple Abx. Followed by ID. 6. DM / Elevated bl glu: NPH and SSI. Monitor. Subjective: Patient was seen and examined at the bedside. Examination: General appearance: well-developed, appears stated age, obese, intubated, on Bipap HEENT: atraumatic Neck: trachea midline Respiratory: coarse breath sounds Heart: S1S2, regular, no murmur Abdomen: soft, obese, bowel sounds heard, NT Integumentary: LE stasis changes noted Neurologic: sedated Ext: trace LE edema : Aceves catheter
[2021-08-02] MEDS ORDERED: DEXTROSE 50% IN WATER (25GM) 50 ML SYRINGE IV PRN (14:38)
--- NOTE | 2021-08-02 14:55 | Progress Note ---
Subjective Date of service: 08/02/21 Principal diagnosis: COVID-19 PNA Objective Vital Signs - 12hr 08/02/21 08/02/21 08/02/21 03:00 03:01 03:31 Pulse Rate 56 L 57 L 57 L Respiratory 23 27 H Rate Blood Pressure 163/84 163/84 160/77 O2 Sat by Pulse 97 98 97 Oximetry 08/02/21 08/02/21 08/02/21 04:01 04:31 05:01 Pulse Rate 58 L 60 61 Respiratory 20 30 H 21 Rate Blood Pressure 169/83 176/81 175/79 O2 Sat by Pulse 96 95 97 Oximetry 08/02/21 08/02/21 08/02/21 06:00 08:36 10:29 Pulse Rate 62 Respiratory 34 H 30 H Rate Blood Pressure O2 Sat by Pulse 98 93 Oximetry 08/02/21 08/02/21 11:03 11:27 Pulse Rate 80 Respiratory 32 H Rate Blood Pressure O2 Sat by Pulse 96 100 Oximetry Constitutional: appears uncomfortable, other (moderate distress, abdominal breathing on NIPPV via FFM) Eyes: non-icteric Neck: supple, no lymphadenopathy, no JVD, other (short neck) Effort: very labored Ascultation: Bilateral: diminished breath sounds, rhonchi Cardiovascular: irregular rhythm, other (S1,S2) Gastrointestinal: normoactive bowel sounds, soft, non-tender, non-distended Integumentary: normal Extremities: no cyanosis, no edema Neurologic: non-focal exam, pupils equal and round Psychiatric: anxious CBC and BMP: 08/02/21 03:49 08/02/21 03:49 ABG, PT/INR, D-dimer: ABG ABG pH 7.336 (7.320-7.450) 08/02/21 02:51 POC ABG pCO2 36.9 mmHg (32.0-48.0) 08/02/21 02:51 ABG pCO2 41.4 mm Hg 07/31/21 18:10 POC ABG pO2 79.6 mmHg (83-108) L 08/02/21 02:51 ABG pO2 151.8 mm Hg (80.0-90.0) H 07/31/21 18:10 POC ABG HCO3 19.3 08/02/21 02:51 ABG O2 Saturation 95 (0-100) 08/02/21 02:51 PT/INR, D-dimer PT 18.5 Sec. (12.2-14.9) H 07/31/21 18:30 INR 1.39 (0.87-1.13) H 07/31/21 18:30 D-Dimer 2619.75 ng/mlDDU (0-234) H 07/31/21 09:46 Abnormal lab findings: Abnormal Labs 07/31/21 07/31/21 07/31/21 09:27 09:27 09:46 WBC 15.5 H Hgb 14.5 H Hct 44.7 H Seg Neuts % (Manual) 77.0 H Lymphocytes % (Manual) 10.0 L Monocytes % (Manual) 13.0 H Nucleated RBC % Seg Neutrophils # Man 11.9 H Lymphocytes # (Manual) Monocytes # (Manual) 2.0 H PT 17.0 H INR 1.25 H D-Dimer 2619.75 H Heparin Anti-Xa Level ABG pH POC ABG pCO2 POC ABG pO2 ABG pO2 ABG O2 Saturation ABG Base Excess ABG Oxyhemoglobin ABG Sodium ABG Glucose Oxyhemoglobin Carboxyhemoglobin Sodium Chloride Carbon Dioxide BUN Creatinine Glucose POC Glucose Ferritin AST Lactate Dehydrogenase Troponin T 0.069 H C-Reactive Protein NT-Pro-B Natriuret Pep Total Protein Albumin Triglycerides 235 H HDL Cholesterol 29 L Arterial Blood Glucose Coronavirus (PCR) 07/31/21 07/31/21 07/31/21 09:46 10:48 11:09 WBC Hgb Hct Seg Neuts % (Manual) Lymphocytes % (Manual) Monocytes % (Manual) Nucleated RBC % Seg Neutrophils # Man Lymphocytes # (Manual) Monocytes # (Manual) PT INR D-Dimer Heparin Anti-Xa Level ABG pH POC ABG pCO2 POC ABG pO2 ABG pO2 ABG O2 Saturation ABG Base Excess ABG Oxyhemoglobin ABG Sodium ABG Glucose Oxyhemoglobin Carboxyhemoglobin Sodium 135 L Chloride 93.6 L Carbon Dioxide 17 L BUN 71 H Creatinine 2.7 H Glucose 468 H POC Glucose 458 H Ferritin 4832.0 H AST 79 H Lactate Dehydrogenase Troponin T C-Reactive Protein NT-Pro-B Natriuret Pep 8486 H Total Protein Albumin 3.4 L Triglycerides HDL Cholesterol Arterial Blood Glucose Coronavirus (PCR) 07/31/21 07/31/21 07/31/21 11:09 13:03 17:58 WBC Hgb Hct Seg Neuts % (Manual) Lymphocytes % (Manual) Monocytes % (Manual) Nucleated RBC % Seg Neutrophils # Man Lymphocytes # (Manual) Monocytes # (Manual) PT INR D-Dimer Heparin Anti-Xa Level ABG pH POC ABG pCO2 POC ABG pO2 ABG pO2 62.5 L ABG O2 Saturation 90.0 L ABG Base Excess -3.0 L ABG Oxyhemoglobin ABG Sodium ABG Glucose Oxyhemoglobin 88.3 L Carboxyhemoglobin Sodium Chloride Carbon Dioxide BUN Creatinine Glucose POC Glucose 400 H Ferritin AST Lactate Dehydrogenase 1809 H Troponin T C-Reactive Protein 32.70 H NT-Pro-B Natriuret Pep Total Protein Albumin Triglycerides HDL Cholesterol Arterial Blood Glucose Coronavirus (PCR) 07/31/21 07/31/21 07/31/21 18:10 18:30 20:10 WBC Hgb Hct Seg Neuts % (Manual) Lymphocytes % (Manual) Monocytes % (Manual) Nucleated RBC % Seg Neutrophils # Man Lymphocytes # (Manual) Monocytes # (Manual) PT 18.5 H INR 1.39 H D-Dimer Heparin Anti-Xa Level ABG pH 7.319 L POC ABG pCO2 POC ABG pO2 ABG pO2 151.8 H ABG O2 Saturation ABG Base Excess -5.0 L ABG Oxyhemoglobin ABG Sodium ABG Glucose Oxyhemoglobin Carboxyhemoglobin Sodium Chloride Carbon Dioxide BUN Creatinine Glucose POC Glucose 428 H Ferritin AST Lactate Dehydrogenase Troponin T C-Reactive Protein NT-Pro-B Natriuret Pep Total Protein Albumin Triglycerides HDL Cholesterol Arterial Blood Glucose Coronavirus (PCR) 08/01/21 08/01/21 08/01/21 00:28 05:44 05:44 WBC 15.9 H Hgb Hct Seg Neuts % (Manual) 88.0 H Lymphocytes % (Manual) 6.0 L Monocytes % (Manual) Nucleated RBC % 2.0 H Seg Neutrophils # Man 14.0 H Lymphocytes # (Manual) 1.0 L Monocytes # (Manual) PT INR D-Dimer Heparin Anti-Xa Level ABG pH POC ABG pCO2 POC ABG pO2 ABG pO2 ABG O2 Saturation ABG Base Excess ABG Oxyhemoglobin ABG Sodium ABG Glucose Oxyhemoglobin Carboxyhemoglobin Sodium Chloride Carbon Dioxide 21 L BUN 83 H Creatinine 2.5 H Glucose 410 H POC Glucose 377 H Ferritin AST 46 H Lactate Dehydrogenase Troponin T C-Reactive Protein NT-Pro-B Natriuret Pep Total Protein 6.2 L D Albumin 2.8 L Triglycerides HDL Cholesterol Arterial Blood Glucose Coronavirus (PCR) 08/01/21 08/01/21 08/01/21 06:33 07:56 09:00 WBC Hgb Hct Seg Neuts % (Manual) Lymphocytes % (Manual) Monocytes % (Manual) Nucleated RBC % Seg Neutrophils # Man Lymphocytes # (Manual) Monocytes # (Manual) PT INR D-Dimer Heparin Anti-Xa Level ABG pH POC ABG pCO2 30.9 L POC ABG pO2 151.8 H ABG pO2 ABG O2 Saturation ABG Base Excess ABG Oxyhemoglobin 98.2 H ABG Sodium 134.8 L ABG Glucose 391 H Oxyhemoglobin Carboxyhemoglobin Sodium Chloride Carbon Dioxide BUN Creatinine Glucose POC Glucose 345 H Ferritin AST Lactate Dehydrogenase Troponin T C-Reactive Protein NT-Pro-B Natriuret Pep Total Protein Albumin Triglycerides HDL Cholesterol Arterial Blood Glucose 391 H Coronavirus (PCR) Positive A 08/01/21 08/01/21 08/01/21 13:17 18:15 18:46 WBC Hgb Hct Seg Neuts % (Manual) Lymphocytes % (Manual) Monocytes % (Manual) Nucleated RBC % Seg Neutrophils # Man Lymphocytes # (Manual) Monocytes # (Manual) PT INR D-Dimer Heparin Anti-Xa Level 0.84 H ABG pH POC ABG pCO2 POC ABG pO2 ABG pO2 ABG O2 Saturation ABG Base Excess ABG Oxyhemoglobin ABG Sodium ABG Glucose Oxyhemoglobin Carboxyhemoglobin Sodium Chloride Carbon Dioxide BUN Creatinine Glucose POC Glucose 345 H 373 H Ferritin AST Lactate Dehydrogenase Troponin T C-Reactive Protein NT-Pro-B Natriuret Pep Total Protein Albumin Triglycerides HDL Cholesterol Arterial Blood Glucose Coronavirus (PCR) 08/01/21 08/02/21 08/02/21 22:22 00:56 02:51 WBC Hgb Hct Seg Neuts % (Manual) Lymphocytes % (Manual) Monocytes % (Manual) Nucleated RBC % Seg Neutrophils # Man Lymphocytes # (Manual) Monocytes # (Manual) PT INR D-Dimer Heparin Anti-Xa Level ABG pH POC ABG pCO2 POC ABG pO2 79.6 L ABG pO2 ABG O2 Saturation ABG Base Excess ABG Oxyhemoglobin ABG Sodium ABG Glucose 367 H Oxyhemoglobin Carboxyhemoglobin 0.4 L Sodium Chloride Carbon Dioxide BUN Creatinine Glucose POC Glucose 297 H 324 H Ferritin AST Lactate Dehydrogenase Troponin T C-Reactive Protein NT-Pro-B Natriuret Pep Total Protein Albumin Triglycerides HDL Cholesterol Arterial Blood Glucose 367 H Coronavirus (PCR) 08/02/21 08/02/21 08/02/21 03:49 03:49 05:57 WBC 20.2 H Hgb Hct Seg Neuts % (Manual) Lymphocytes % (Manual) Monocytes % (Manual) Nucleated RBC % Seg Neutrophils # Man Lymphocytes # (Manual) Monocytes # (Manual) PT INR D-Dimer Heparin Anti-Xa Level ABG pH POC ABG pCO2 POC ABG pO2 ABG pO2 ABG O2 Saturation ABG Base Excess ABG Oxyhemoglobin ABG Sodium ABG Glucose Oxyhemoglobin Carboxyhemoglobin Sodium Chloride Carbon Dioxide 19 L BUN 77 H Creatinine 2.0 H Glucose 357 H POC Glucose 274 H Ferritin AST Lactate Dehydrogenase Troponin T C-Reactive Protein NT-Pro-B Natriuret Pep Total Protein Albumin 2.7 L Triglycerides HDL Cholesterol Arterial Blood Glucose Coronavirus (PCR) 08/02/21 08/02/21 09:19 12:09 WBC Hgb Hct Seg Neuts % (Manual) Lymphocytes % (Manual) Monocytes % (Manual) Nucleated RBC % Seg Neutrophils # Man Lymphocytes # (Manual) Monocytes # (Manual) PT INR D-Dimer Heparin Anti-Xa Level < 0.10 L ABG pH POC ABG pCO2 POC ABG pO2 ABG pO2 ABG O2 Saturation ABG Base Excess ABG Oxyhemoglobin ABG Sodium ABG Glucose Oxyhemoglobin Carboxyhemoglobin Sodium Chloride Carbon Dioxide BUN Creatinine Glucose POC Glucose 291 H Ferritin AST Lactate Dehydrogenase Troponin T C-Reactive Protein NT-Pro-B Natriuret Pep Total Protein Albumin Triglycerides HDL Cholesterol Arterial Blood Glucose Coronavirus (PCR) Allied health notes reviewed: nursing
[2021-08-02] MEDS ORDERED: INSULIN REGULAR, HUMAN 100 UNITS in SODIUM CHLORIDE 0.9% 99 ML IV SCH (15:00)
[2021-08-02 15:59] LABS: Creatinine,Urine 170.6 mg/dL (0.1-20.0)
[2021-08-02 16:00] LABS: Protein/Creatinine Ratio,Urine 0.54
[2021-08-02 16:03] LABS: Bilirubin,Urine NEG (Negative); Blood,Urine MOD (Negative); Color,Urine Amber (Yellow); Mucus,Urine FEW /HPF
--- NOTE | 2021-08-02 16:40 | Ultrasound Report ---
ULTRASOUND RENAL INDICATION / CLINICAL INFORMATION: Acute renal failure.. COMPARISON: None available. FINDINGS: RIGHT KIDNEY: Length = 9.4 cm. - Echogenicity: Normal. - Cortical Thickness: Normal. - Hydronephrosis: None. - Cyst / Mass: None. - Stones: None seen. LEFT KIDNEY: Length = 9.9 cm. - Echogenicity: Normal. - Cortical Thickness: Normal. - Hydronephrosis: None. - Cyst / Mass: Cyst in the midportion measuring 1.6 x 1.4 x 1.6 cm. - Stones: None seen. URINARY BLADDER: Not visualized FREE FLUID: None. ADDITIONAL FINDINGS: None. IMPRESSION: 1. No significant abnormality. No hydronephrosis. 2. Left renal cyst. Signer Name: Lebron Starks MD Signed: 08/02/2021 4:35 PM Workstation Name: [id number]
--- NOTE | 2021-08-02 17:53 | Progress Note ---
<NIK CARR - Last Filed: 08/02/21 18:20> Assessment and Plan Assessment and plan: This is a 65 years-old unvaccinated female with PmHx of Obesity Hypoventilation Syndrome, DM2, RA, Paroxysmal Atrial Fib not taking therapeutic anticoagulation, HTN, CHF who presents to the ED due to hypoxia, SOB, and has not been feeling well for over week. Upon arrival to the ED, patient's SPO2 was in the low 80%, tachycardic, and tachypneic. She was initially placed on noninvasive positive pressure ventilation with no improvement, then later intubated due to acute hypoxemic respiratory failure. Additional workups showed bilateral pneumonia, NSTEMI, RHINA, and uncontrolled DM. Patient will be transfer to ICU when a bed is available for further management. Hospital Course to Date: 08/01/21- Patient is intubated, appears restless and anxious on propofol gtt, fentanyl gtt added for RASS 0 to -2. Patient remains leukocytosis, continue empiric ABx per ID. CT chest ordered to f/o on multifocal PNA. Nephro consulted for RHINA,, and insulin adjusted for hyperglycemia. Will continue to monitor renal function and adjust insulin accordingly for glycemic control. 08/02/21- Patient intubated and sedated max on propofol and fentanyl RASS -3 to -4. Patient COVID swab came back posititve and tracheal aspirate is positive MRSA, vanco added per sensitivity. Patient remains hyperglycemic, will start insulin gtt for tighter glycemic control. Nutritional consult for TF management. Assessment and Plan #Neuro: Anxiety - Patient is intubated on proprofol, RASS 0 to +1 - Patient is awake and appropriate, appears restless and anxious - Fentanyl gtt added - Titrate sedation for RASS goal 0 to -2 - PRN analgesic for POCT greater than 3 - Daily SAT and SBT per CCM - Avoid benzodiazepine's, reduce the possibility of delirium - Maintenance of sleep-wake cycle, avoid delirium #NSTEMI #Elevated Troponin #Acute on Chronic CHF #Paroxysmal Atrial Fib - Troponin 0.069 - initial EKG shows sinus tach probable with no acute ischemic changes - 07/31 2D Echo- EF 50-55% - NSR to ST on the monitor today - Repeat EKG pending - Cardiology on consult, appreciated recommendation - On low dose pressors - Continue blood pressure monitor per protocol - Wean off pressors for MAP greater than 65 - BNP 8486 - No diurectic for now in the setting of RHINA - Continue AC- Heparin gtt per protocol #Acute hypoxemic Respiratory failure 2/2 #COVID PUI - 07/31 CXR- multifocal airspace opacitities concern for pneumonia - 08/01 CXR- stable bilateral airspace disease - COVID swab pending, 07/31 Tracheal aspirate pending - ETT on 07/31: - Vent setting: CMV- 80,12,20,450 - This am ABG noted - Wean FiO2 as tolerated for SPO2 goal above 92% - Continue steroids [id number] - CT chest w/o con pending - Daily CXR and ABGs - Daily SBT and SAT trials as tolerated - VAP bundle addressed #GI: NAP - Currently NPO - Will assess need for NGT for nutrition - Continue BR- - Continue PPI- Pepcid #Acute Kidney Injury (RHINA) in the setting of severe Covid-19 infection and sepsis - Cr from 08/2013 was 0.7, cr. up to 2.7 this admit - Nephro consulted - Asher inserted, 450cc UOP documemnted so far - Continue strict intake and output - Avoid nephrotoxic medications; Renally dose medications - Hold diurectic for now due to RHINA - Continue to monitor and replace electrolytes as needed #ID: Sepsis 2/2 bilateral PNA #Bilateral Multifocal Pneumonia #COVID PUI - 07/31 CXR- multifocal airspace opacitities concern for pneumonia - 08/01 CXR- stable bilateral airspace disease - COVID swab pending, 07/31 Tracheal aspirate pending, 07/31 B.cultX2 pending - Lactic acid normal 1.9 - Leukocytosis 15.9 today - Patient remains afebrile; TMAX 97.2 - Continue empiric ABx- Levaquin and Azithromycin - F/U on cultures - Continue steroids [id number] - Daily CBC monitor - ID on consult, appreciated recommendations #Endo:Hyperglycemia #Uncontrolled Diabetes - Continue high scale SSI - Restarted home dose NPH BID - While critically ill target blood glucose of 140-180 - Avoid hypoglycemia The high probability of a clinically significant, sudden or life threatening deterioration of the [multiple] system(s) required my full and direct attention, intervention and personal management. The aggregate critical care time was [60] minutes. This time is in addition to time spent performing reported procedures but includes the following: [x] Data Review and interpretation [x] Patient assessment and monitoring of vital signs [x] Documentation [x] Medication orders and management Disposition Plan: ICU Total Time Spent with Patient (Minutes): 60 History Interval history: Patient seen and examined at the bedside. Intubated and sedated and propofol and fentanyl gtt at max, RASS -3 to -4. Remains on pressors, worsen respiratory status increased on vent settings overnight. Hospitalist Physical - Constitutional Vitals: Temp Pulse Resp BP Pulse Ox 97.7 F 75 40 H 175/79 95 08/02/21 01:00 08/02/21 15:48 08/02/21 15:39 08/02/21 05:01 08/02/21 15:48 General appearance: Present: no acute distress, well-nourished, other (Intubated and sedated) - EENT Eyes: Present: PERRL - Respiratory Respiratory effort: accessory muscle use Respiratory: bilateral: rhonchi - Cardiovascular Rhythm: regular Heart Sounds: Present: S1 & S2 - Extremities Extremities: no ischemia, pulses intact, pulses symmetrical Extremity abnormal: edema - Peripheral Assessment Generalized Edema Type: Non-pitting Edema Degree: 1+ Capillary Refill: < 3 seconds Skin Temperature: Warm Peripheral Pulses: within normal limits - Abdominal General gastrointestinal: soft, non-tender, normal bowel sounds - Integumentary Integumentary: Present: clear, warm, dry - Psychiatric Psychiatric: other (Intubated and sedated) - Neurologic Neurologic: other (Intubated and sedated) - Allied Health Allied health notes reviewed: nursing HEART Score - HEART Score Troponin: Troponin T < 0.010 ng/mL (0.00-0.029) 08/02/21 03:49 Results - Labs CBC & Chem 7: 08/02/21 03:49 08/02/21 03:49 Labs: Laboratory Last Values WBC 20.2 K/mm3 (4.5-11.0) H 08/02/21 03:49 RBC 3.81 M/mm3 (3.65-5.03) 08/02/21 03:49 Hgb 11.6 gm/dl (10.1-14.3) 08/02/21 03:49 Hct 34.9 % (30.3-42.9) 08/02/21 03:49 MCV 92 fl (79-97) 08/02/21 03:49 MCH 30 pg (28-32) 08/02/21 03:49 MCHC 33 % (30-34) 08/02/21 03:49 RDW 14.4 % (13.2-15.2) 08/02/21 03:49 Plt Count 197 K/mm3 (140-440) 08/02/21 03:49 Add Manual Diff Complete 08/01/21 05:44 Total Counted 100 08/01/21 05:44 Seg Neuts % (Manual) 88.0 % (40.0-70.0) H 08/01/21 05:44 Band Neutrophils % 4.0 % 08/01/21 05:44 Lymphocytes % (Manual) 6.0 % (13.4-35.0) L 08/01/21 05:44 Monocytes % (Manual) 1.0 % (0.0-7.3) 08/01/21 05:44 Metamyelocytes % 1.0 % 08/01/21 05:44 Nucleated RBC % 2.0 % (0.0-0.9) H 08/01/21 05:44 Seg Neutrophils # Man 14.0 K/mm3 (1.8-7.7) H 08/01/21 05:44 Band Neutrophils # 0.6 K/mm3 08/01/21 05:44 Lymphocytes # (Manual) 1.0 K/mm3 (1.2-5.4) L 08/01/21 05:44 Abs React Lymphs (Man) 0.0 K/mm3 08/01/21 05:44 Monocytes # (Manual) 0.2 K/mm3 (0.0-0.8) 08/01/21 05:44 Eosinophils # (Manual) 0.0 K/mm3 (0.0-0.4) 08/01/21 05:44 Basophils # (Manual) 0.0 K/mm3 (0.0-0.1) 08/01/21 05:44 Metamyelocytes # 0.2 K/mm3 08/01/21 05:44 Myelocytes # 0.0 K/mm3 08/01/21 05:44 Promyelocytes # 0.0 K/mm3 08/01/21 05:44 Blast Cells # 0.0 K/mm3 08/01/21 05:44 WBC Morphology Not Reportable 08/01/21 05:44 Hypersegmented Neuts Not Reportable 08/01/21 05:44 Hyposegmented Neuts Not Reportable 08/01/21 05:44 Hypogranular Neuts Not Reportable 08/01/21 05:44 Smudge Cells Not Reportable 08/01/21 05:44 Toxic Granulation Not Reportable 08/01/21 05:44 Toxic Vacuolation Not Reportable 08/01/21 05:44 Dohle Bodies Not Reportable 08/01/21 05:44 Pelger-Huet Anomaly Not Reportable 08/01/21 05:44 Prasad Rods Not Reportable 08/01/21 05:44 Platelet Estimate Consistent w auto 08/01/21 05:44 Clumped Platelets Not Reportable 08/01/21 05:44 Plt Clumps, EDTA Not Reportable 08/01/21 05:44 Large Platelets Not Reportable 08/01/21 05:44 Giant Platelets Not Reportable 08/01/21 05:44 Platelet Satelliting Not Reportable 08/01/21 05:44 Plt Morphology Comment Not Reportable 08/01/21 05:44 RBC Morphology Not Reportable 08/01/21 05:44 Dimorphic RBCs Not Reportable 08/01/21 05:44 Polychromasia Few 08/01/21 05:44 Hypochromasia Not Reportable 08/01/21 05:44 Poikilocytosis 1+ 08/01/21 05:44 Anisocytosis 1+ 08/01/21 05:44 Microcytosis Not Reportable 08/01/21 05:44 Macrocytosis Not Reportable 08/01/21 05:44 Spherocytes Not Reportable 08/01/21 05:44 Pappenheimer Bodies Not Reportable 08/01/21 05:44 Sickle Cells Not Reportable 08/01/21 05:44 Target Cells Not Reportable 08/01/21 05:44 Tear Drop Cells Not Reportable 08/01/21 05:44 Ovalocytes Not Reportable 08/01/21 05:44 Helmet Cells Not Reportable 08/01/21 05:44 [place] Bodies Not Reportable 08/01/21 05:44 [place] Rings Not Reportable 08/01/21 05:44 Matt Cells 1+ 08/01/21 05:44 Bite Cells Not Reportable 08/01/21 05:44 Crenated Cell Not Reportable 08/01/21 05:44 Elliptocytes Not Reportable 08/01/21 05:44 Acanthocytes (Spur) Not Reportable 08/01/21 05:44 Rouleaux Not Reportable 08/01/21 05:44 Hemoglobin C Crystals Not Reportable 08/01/21 05:44 Schistocytes Not Reportable 08/01/21 05:44 Malaria parasites Not Reportable 08/01/21 05:44 Bertrand Bodies Not Reportable 08/01/21 05:44 Hem Pathologist Commnt No 08/01/21 05:44 PT 18.5 Sec. (12.2-14.9) H 07/31/21 18:30 INR 1.39 (0.87-1.13) H 07/31/21 18:30 APTT 28.4 Sec. (24.2-36.6) 07/31/21 18:30 D-Dimer 2619.75 ng/mlDDU (0-234) H 07/31/21 09:46 Heparin Anti-Xa Level < 0.10 U.I./ml (0.3-0.7) L 08/02/21 09:19 ABG pH 7.336 (7.320-7.450) 08/02/21 02:51 POC ABG pCO2 36.9 mmHg (32.0-48.0) 08/02/21 02:51 ABG pCO2 41.4 mm Hg 07/31/21 18:10 POC ABG pO2 79.6 mmHg (83-108) L 08/02/21 02:51 ABG pO2 151.8 mm Hg (80.0-90.0) H 07/31/21 18:10 POC ABG HCO3 19.3 08/02/21 02:51 ABG HCO3 20.8 mmol/L (20.0-26.0) 07/31/21 18:10 ABG O2 Saturation 95 (0-100) 08/02/21 02:51 ABG O2 Content 17.4 (0.0-44) 07/31/21 18:10 POC ABG Base Excess -5.9 08/02/21 02:51 ABG Base Excess -5.0 mmol/L (-2.0-3.0) L 07/31/21 18:10 ABG Hemoglobin 13.2 (12.0-17.5) 08/02/21 02:51 ABG Oxyhemoglobin 94.3 (94-98) 08/02/21 02:51 ABG Carboxyhemoglobin 1.0 % (0.0-5.0) 07/31/21 18:10 ABG Methemoglobin 0.3 (0.0-1.5) 08/02/21 02:51 ABG Sodium 139.2 mmol/L (136.0-145.0) 08/02/21 02:51 ABG Potassium 4.2 mmol/L (3.40-4.50) 08/02/21 02:51 ABG Chloride 106.0 mmol/L (98-107) 08/02/21 02:51 ABG Glucose 367 mg/dL (65-95) H 08/02/21 02:51 Oxyhemoglobin 97.1 % (95.0-99.0) 07/31/21 18:10 Carboxyhemoglobin 0.4 (0.5-1.5) L 08/02/21 02:51 FiO2 100 % 07/31/21 18:10 FiO2 % 70 08/02/21 02:51 Sodium 140 mmol/L (137-145) 08/02/21 03:49 Potassium 4.3 mmol/L (3.6-5.0) 08/02/21 03:49 Chloride 104.1 mmol/L (98-107) 08/02/21 03:49 Carbon Dioxide 19 mmol/L (22-30) L 08/02/21 03:49 Anion Gap 21 mmol/L 08/02/21 03:49 BUN 77 mg/dL (7-17) H 08/02/21 03:49 Creatinine 2.0 mg/dL (0.6-1.2) H 08/02/21 03:49 Estimated GFR 30 ml/min 08/02/21 03:49 BUN/Creatinine Ratio 39 % 08/02/21 03:49 Glucose 357 mg/dL (65-100) H 08/02/21 03:49 POC Glucose 291 mg/dL (70-105) H 08/02/21 12:09 Lactic Acid 1.90 mmol/L (0.7-2.0) 08/01/21 05:44 Calcium 9.4 mg/dL (8.4-10.2) 08/02/21 03:49 Ferritin 4832.0 ng/mL (10.0-200.0) H 07/31/21 11:09 Total Bilirubin 0.60 mg/dL (0.1-1.2) 08/02/21 03:49 AST 27 units/L (5-40) 08/02/21 03:49 ALT 21 units/L (7-56) 08/02/21 03:49 Alkaline Phosphatase 83 units/L (35-129) 08/02/21 03:49 Lactate Dehydrogenase 1809 units/L (91-180) H 07/31/21 11:09 Troponin T < 0.010 ng/mL (0.00-0.029) 08/02/21 03:49 C-Reactive Protein 32.70 mg/dL (0.00-1.30) H 07/31/21 11:09 NT-Pro-B Natriuret Pep 8486 pg/mL (0-900) H 07/31/21 09:46 Total Protein 6.4 g/dL (6.3-8.2) 08/02/21 03:49 Albumin 2.7 g/dL (3.9-5) L 08/02/21 03:49 Albumin/Globulin Ratio 0.7 % 08/02/21 03:49 Triglycerides 235 mg/dL (2-149) H 07/31/21 09:27 Cholesterol 125 mg/dL (50-199) 07/31/21 09:27 LDL Cholesterol Direct 50 mg/dL (50-130) 07/31/21 09:27 HDL Cholesterol 29 mg/dL (40-59) L 07/31/21 09:27 Cholesterol/HDL Ratio 4.31 % 07/31/21 09:27 Procalcitonin 2.12 ng/mL (<0.15) 07/31/21 11:09 Arterial Blood Glucose 367 mg/dL (65-95) H 08/02/21 02:51 Urine Color Tori (Yellow) 08/02/21 13:54 Urine Turbidity Cloudy (Clear) 08/02/21 13:54 Urine pH 5.0 (5.0-7.0) 08/02/21 13:54 Ur Specific [place] 1.017 (1.003-1.030) 08/02/21 13:54 Urine Protein 30 mg/dl mg/dL (Negative) 08/02/21 13:54 Urine Glucose (UA) 50 mg/dL (Negative) 08/02/21 13:54 Urine Ketones Neg mg/dL (Negative) 08/02/21 13:54 Urine Blood Mod (Negative) 08/02/21 13:54 Urine Nitrite Neg (Negative) 08/02/21 13:54 Urine Bilirubin Neg (Negative) 08/02/21 13:54 Urine Urobilinogen 4.0 mg/dL (<2.0) 08/02/21 13:54 Ur Leukocyte Esterase Neg (Negative) 08/02/21 13:54 Urine WBC (Auto) 12.0 /HPF (0.0-6.0) H 08/02/21 13:54 Urine RBC (Auto) 66.0 /HPF (0.0-6.0) 08/02/21 13:54 U Epithel Cells (Auto) 2.0 /HPF (0-13.0) 08/02/21 13:54 Urine Mucus Few /HPF 08/02/21 13:54 Urine Creatinine 170.6 mg/dL (0.1-20.0) H 08/02/21 13:54 Protein/Creatinin Ratio 0.54 08/02/21 13:54 Urine Sodium 10 mmol/L 08/02/21 13:54 Urine Total Protein 92 mg/dL (5-11.8) H 08/02/21 13:54 Coronavirus (PCR) Positive (Negative) A 08/01/21 09:00 Blood Type O POSITIVE 07/31/21 18:30 Antibody Screen Negative 07/31/21 18:30 Microbiology: Microbiology 07/31/21 11:09 Peripheral/Venous Blood Culture - Preliminary NO GROWTH AFTER 48 HOURS 07/31/21 11:09 Peripheral/Venous Blood Culture - Preliminary NO GROWTH AFTER 48 HOURS 07/31/21 17:17 Tracheal Aspirate Sputum Culture - Final Methicillin Resist S. Aureus Asher/IV: Voiding Method Indwelling Catheter Active Medications - Current Medications Current Medications: Generic Name Dose Route Start Last Admin Trade Name Freq PRN Reason Stop Dose Admin Acetaminophen 650 mg 07/31/21 11:44 Acetaminophen 325 Mg Tab PO Q4H PRN Pain MILD(1-3)/Fever >100.5/PIERCE Albuterol 2.5 mg 07/31/21 11:44 Albuterol 2.5 Mg/3 Ml Nebu IH Q4HRT PRN Shortness Of Breath Ascorbic Acid 500 mg 07/31/21 22:00 08/02/21 09:29 Ascorbic Acid 500 Mg Tab PO 500 mg BID TRISTEN Administration Cholecalciferol 1,000 unit 08/01/21 10:00 08/02/21 09:30 Cholecalciferol (Vit D3) 400 Unit Tab PO 1,000 unit QDAY TRISTEN Administration Cyclobenzaprine HCl 10 mg 07/31/21 12:00 08/02/21 09:29 Cyclobenzaprine 10 Mg Tab PO 10 mg TID PRN Administration MUSCLE PAIN/SPASMS Dextrose 50 ml 07/31/21 16:00 Dextrose 50% In Water (25gm) 50 Ml Syringe IV Q30MIN PRN Hypoglycemia Protocol Dextrose 0 ml 08/02/21 14:38 Dextrose 50% In Water (25gm) 50 Ml Syringe IV Q30MIN PRN Hypoglycemia Protocol Famotidine 20 mg 08/02/21 22:00 Famotidine 20 Mg/2 Ml Inj IV HS [facility] Fentanyl 50 mcg 08/01/21 11:52 Fentanyl 100 Mcg/2 Ml Inj IV Q10MIN PRN ANALGESIA Heparin Sodium (Porcine) 4,500 unit 07/31/21 15:35 Heparin 10,000 Units/10 Ml Vial 40 unit/kg (4500 unit) IV Q6H PRN Anti-Xa Assay < 0.1 units/ml Hydromorphone HCl 0.25 mg 07/31/21 11:44 08/01/21 00:58 Hydromorphone 1 Mg/1 Ml Inj IV 0.25 mg Q4H PRN Administration Pain, Moderate (4-6) Hydromorphone HCl 0.5 mg 07/31/21 11:44 Hydromorphone 1 Mg/1 Ml Inj IV Q23H PRN Pain , Severe (7-10) Hydrophilic Ointment 1 applic 07/31/21 15:23 Lip Therapy Vaseline TP Q2HR PRN Dry Lips Levofloxacin/Dextrose 750 mg in 150 mls @ 100 mls/hr 08/02/21 15:00 08/02/21 16:38 Levaquin 750mg/150ml IV Infused Q48H [facility] Infusion Protocol Heparin Sodium/Sodium Chloride 25,000 unit in 500 mls @ 20 mls/hr 07/31/21 16:00 08/02/21 10:54 Heparin/ 0.45% Nacl-25,000 Unit/500 Ml IV 950 units/hr TITRATE TRISTEN 19 mls/hr Titration Protocol 1,000 UNITS/HR Propofol 1,000 mg in 100 mls @ 3.402 mls/hr 07/31/21 16:00 08/02/21 15:56 Diprivan 10 Mg/Ml IV 50 mcg/kg/min TITR TRISTEN 34.019 mls/hr Administration Protocol 5 MCG/KG/MIN Norepinephrine 4 mg in 250 mls @ 18.75 mls/hr 07/31/21 17:00 08/02/21 10:40 Levophed Drip 4 Mg/Ns 250 Ml IV 4 mcg/min TITR TRISTEN 15 mls/hr Administration Protocol 5 MCG/MIN Fentanyl Citrate 2,000 mcg in 100 mls @ 5.67 mls/hr 08/01/21 12:00 08/02/21 14:56 Fentanyl Drip Premix IV 4 mcg/kg/hr TITR TRISTEN 22.68 mls/hr Administration Protocol 1 MCG/KG/HR TOCILIZUMAB 800 mg/ Sodium 140 mls @ 120 mls/hr 08/02/21 11:48 Chloride IV 08/02/21 12:57 ONCE ONE Vancomycin HCl 1,750 mg/ 535 mls @ 333.333 mls/hr 08/03/21 13:00 Sodium Chloride IV Q24H TRISTEN Insulin Human Regular 100 100 mls @ 1 mls/hr 08/02/21 15:00 08/02/21 17:37 units/ Sodium Chloride IV 2.5 units/hr TITR TRISTEN 2.5 mls/hr Administration Protocol 1 UNITS/HR Methylprednisolone Sodium Succinate 40 mg 07/31/21 14:00 08/02/21 13:09 Methylprednisolone Sod Succinate 40 Mg/1 Ml Inj IV 40 mg Q8HR TRISTEN Administration Multi-Ingred Cream/Lotion/Oil/Oint 1 applic 07/31/21 15:23 Mineral Oil/Petrolatum, White Ophth Oint 3.5 Gm OU Q4HR PRN Dry Eye(s) Ondansetron HCl 4 mg 07/31/21 11:44 Ondansetron 4 Mg/2 Ml Inj IV Q8H PRN Nausea And Vomiting Oxycodone/Acetaminophen 1 tab 07/31/21 11:44 08/02/21 09:29 Oxycodone /Acetaminophen 5-325mg Tab PO 1 tab Q16H PRN Administration Pain, Moderate (4-6) Senna/Docusate Sodium 1 tab 07/31/21 22:00 08/02/21 10:46 Sennosides/Docusate Sodium 8.6/50 Mg Tab FEEDTUBE Not Given BID TRISTEN Sodium Chloride 10 ml 07/31/21 22:00 08/02/21 10:46 Sodium Chloride 0.9% 10 Ml Flush Syringe IV 10 ml BID TRISTEN Administration Sodium Chloride 10 ml 07/31/21 11:44 Sodium Chloride 0.9% 10 Ml Flush Syringe IV PRN PRN LINE FLUSH Zinc Sulfate 220 mg 07/31/21 22:00 08/02/21 09:28 Zinc Sulfate 220 Mg Cap PO 220 mg BID TRISTEN Administration Nutrition/Malnutrition Assess - Dietary Evaluation Nutrition/Malnutrition Findings: Nutrition Notes Start: 08/01/21 12:02 Freq: Status: Active Protocol: Document 08/01/21 12:03 MORTEZA (Rec: 08/01/21 12:12 NHALL [id number]) Nutrition Notes Need for Assessment generated from: MD Order Initial or Follow up Assessment Current Diagnosis Acute Kidney Injury,Diabetes, Sepsis,Hypertension,Heart Failure Other Pertinent Diagnosis Pneu, r/o COVID-19, NSTEMI, afib, RA Current Diet Cardiac Labs/Tests BUN 83 Cr 2.5 BG 410 Pertinent Medications Vit C and D3, Heparin gtt, Solumedrol, Levophed gtt, Propofol at 20.412ml/hr ( provides 539 kcal), Senokot, NS at 100ml/hr, Zinc sulfate Height 6 ft Weight 113.398 kg [place] Body Weight (kg) 72.72 BMI 33.9 Weight Status Obese Subjective/Other Information RD consulted to evaluate nutritional intake. Pt in ED at this time and intubated on vent support. Burn Absent Trauma Absent Difficulty In Swallowing Skin Integrity/Comment Zev score: 12 Minimum of two criteria No #1 Nutrition Diagnosis Inadequate oral intake Etiology mech ventilation As Evidenced by Signs and Symptoms pt NPO Is patient on ventilator? Yes Is Patient Ambulatory and/or Out of Bed No REE-([place]-confined to bed) 2159.964 Kcal/Kg value to use for calculation 15 Approximate Energy Requirements Using 1701 kcal/Kg Calculation Used for Recommendations Kcal/kg Additional Notes Pro needs 2g/kg IBW: 145g/day Fluid needs 1ml/kcal Nutrition Intervention Change Diet Order: Advance diet when medically feasible Nutrition Support: Vital HP at 65ml/hr if unable to advance diet within 24- 48hrs. Goal #1 Eiter advance diet or start EN support to meet nutrient needs Anticipated Discharge Needs: Unable to identify at this time Follow-Up By: 08/03/21 Additional Comments F/U: transfer to ICU, diet advancement vs TF consult, vent status <TALIA MCGINNIS - Last Filed: 08/03/21 07:41> Assessment and Plan Assessment and plan: I saw and evaluated the patient. I agree with the findings and the plan of care as documented in the Nurse Practitioner's~note, with the following corrections and additions. very guarded prognosis Hospitalist Physical - Constitutional Vitals: Temp Pulse Resp BP Pulse Ox 99.8 F H 106 H 27 H 107/49 77 L 08/03/21 03:40 08/03/21 05:38 08/03/21 03:00 08/03/21 05:38 08/03/21 05:28 HEART Score - HEART Score Troponin: Troponin T < 0.010 ng/mL (0.00-0.029) 08/02/21 03:49 Results - Labs CBC & Chem 7: 08/03/21 03:25 08/03/21 03:25 Labs: Laboratory Last Values WBC 21.7 K/mm3 (4.5-11.0) H 08/03/21 03:25 RBC 3.54 M/mm3 (3.65-5.03) L 08/03/21 03:25 Hgb 10.7 gm/dl (10.1-14.3) 08/03/21 03:25 Hct 33.3 % (30.3-42.9) 08/03/21 03:25 MCV 94 fl (79-97) 08/03/21 03:25 MCH 30 pg (28-32) 08/03/21 03:25 MCHC 32 % (30-34) 08/03/21 03:25 RDW 14.9 % (13.2-15.2) 08/03/21 03:25 Plt Count 242 K/mm3 (140-440) 08/03/21 03:25 Add Manual Diff Complete 08/01/21 05:44 Total Counted 100 08/01/21 05:44 Seg Neuts % (Manual) 88.0 % (40.0-70.0) H 08/01/21 05:44 Band Neutrophils % 4.0 % 08/01/21 05:44 Lymphocytes % (Manual) 6.0 % (13.4-35.0) L 08/01/21 05:44 Monocytes % (Manual) 1.0 % (0.0-7.3) 08/01/21 05:44 Metamyelocytes % 1.0 % 08/01/21 05:44 Nucleated RBC % 2.0 % (0.0-0.9) H 08/01/21 05:44 Seg Neutrophils # Man 14.0 K/mm3 (1.8-7.7) H 08/01/21 05:44 Band Neutrophils # 0.6 K/mm3 08/01/21 05:44 Lymphocytes # (Manual) 1.0 K/mm3 (1.2-5.4) L 08/01/21 05:44 Abs React Lymphs (Man) 0.0 K/mm3 08/01/21 05:44 Monocytes # (Manual) 0.2 K/mm3 (0.0-0.8) 08/01/21 05:44 Eosinophils # (Manual) 0.0 K/mm3 (0.0-0.4) 08/01/21 05:44 Basophils # (Manual) 0.0 K/mm3 (0.0-0.1) 08/01/21 05:44 Metamyelocytes # 0.2 K/mm3 08/01/21 05:44 Myelocytes # 0.0 K/mm3 08/01/21 05:44 Promyelocytes # 0.0 K/mm3 08/01/21 05:44 Blast Cells # 0.0 K/mm3 08/01/21 05:44 WBC Morphology Not Reportable 08/01/21 05:44 Hypersegmented Neuts Not Reportable 08/01/21 05:44 Hyposegmented Neuts Not Reportable 08/01/21 05:44 Hypogranular Neuts Not Reportable 08/01/21 05:44 Smudge Cells Not Reportable 08/01/21 05:44 Toxic Granulation Not Reportable 08/01/21 05:44 Toxic Vacuolation Not Reportable 08/01/21 05:44 Dohle Bodies Not Reportable 08/01/21 05:44 Pelger-Huet Anomaly Not Reportable 08/01/21 05:44 Prasad Rods Not Reportable 08/01/21 05:44 Platelet Estimate Consistent w auto 08/01/21 05:44 Clumped Platelets Not Reportable 08/01/21 05:44 Plt Clumps, EDTA Not Reportable 08/01/21 05:44 Large Platelets Not Reportable 08/01/21 05:44 Giant Platelets Not Reportable 08/01/21 05:44 Platelet Satelliting Not Reportable 08/01/21 05:44 Plt Morphology Comment Not Reportable 08/01/21 05:44 RBC Morphology Not Reportable 08/01/21 05:44 Dimorphic RBCs Not Reportable 08/01/21 05:44 Polychromasia Few 08/01/21 05:44 Hypochromasia Not Reportable 08/01/21 05:44 Poikilocytosis 1+ 08/01/21 05:44 Anisocytosis 1+ 08/01/21 05:44 Microcytosis Not Reportable 08/01/21 05:44 Macrocytosis Not Reportable 08/01/21 05:44 Spherocytes Not Reportable 08/01/21 05:44 Pappenheimer Bodies Not Reportable 08/01/21 05:44 Sickle Cells Not Reportable 08/01/21 05:44 Target Cells Not Reportable 08/01/21 05:44 Tear Drop Cells Not Reportable 08/01/21 05:44 Ovalocytes Not Reportable 08/01/21 05:44 Helmet Cells Not Reportable 08/01/21 05:44 [place] Bodies Not Reportable 08/01/21 05:44 [place] Rings Not Reportable 08/01/21 05:44 Matt Cells 1+ 08/01/21 05:44 Bite Cells Not Reportable 08/01/21 05:44 Crenated Cell Not Reportable 08/01/21 05:44 Elliptocytes Not Reportable 08/01/21 05:44 Acanthocytes (Spur) Not Reportable 08/01/21 05:44 Rouleaux Not Reportable 08/01/21 05:44 Hemoglobin C Crystals Not Reportable 08/01/21 05:44 Schistocytes Not Reportable 08/01/21 05:44 [place] parasites Not Reportable 08/01/21 05:44 Bertrand Bodies Not Reportable 08/01/21 05:44 Hem Pathologist Commnt No 08/01/21 05:44 PT 18.5 Sec. (12.2-14.9) H 07/31/21 18:30 INR 1.39 (0.87-1.13) H 07/31/21 18:30 APTT 28.4 Sec. (24.2-36.6) 07/31/21 18:30 D-Dimer 2619.75 ng/mlDDU (0-234) H 07/31/21 09:46 Heparin Anti-Xa Level 0.34 U.I./ml (0.3-0.7) 08/02/21 Unknown ABG pH 7.102 (7.320-7.450) L 08/03/21 04:58 POC ABG pCO2 54.7 mmHg (32.0-48.0) H 08/03/21 04:58 ABG pCO2 41.4 mm Hg 07/31/21 18:10 POC ABG pO2 44.5 mmHg (83-108) L 08/03/21 04:58 ABG pO2 151.8 mm Hg (80.0-90.0) H 07/31/21 18:10 POC ABG HCO3 16.7 08/03/21 04:58 ABG HCO3 20.8 mmol/L (20.0-26.0) 07/31/21 18:10 ABG O2 Saturation 73.3 (0-100) 08/03/21 04:58 ABG O2 Content 17.4 (0.0-44) 07/31/21 18:10 POC ABG Base Excess -12.9 08/03/21 04:58 ABG Base Excess -5.0 mmol/L (-2.0-3.0) L 07/31/21 18:10 ABG Hemoglobin 12.1 (12.0-17.5) 08/03/21 04:58 ABG Oxyhemoglobin 72.8 (94-98) L 08/03/21 04:58 ABG Carboxyhemoglobin 1.0 % (0.0-5.0) 07/31/21 18:10 ABG Methemoglobin 0.1 (0.0-1.5) 08/03/21 04:58 ABG Sodium 141.5 mmol/L (136.0-145.0) 08/03/21 04:58 ABG Potassium 4.5 mmol/L (3.40-4.50) 08/03/21 04:58 ABG Chloride 110.0 mmol/L (98-107) H 08/03/21 04:58 ABG Glucose 216 mg/dL (65-95) H 08/03/21 04:58 Oxyhemoglobin 97.1 % (95.0-99.0) 07/31/21 18:10 Carboxyhemoglobin 0.6 (0.5-1.5) 08/03/21 04:58 FiO2 100 % 07/31/21 18:10 FiO2 % 100 08/03/21 04:58 Sodium 143 mmol/L (137-145) 08/03/21 03:25 Potassium 4.7 mmol/L (3.6-5.0) 08/03/21 03:25 Chloride 108.5 mmol/L (98-107) H 08/03/21 03:25 Carbon Dioxide 18 mmol/L (22-30) L 08/03/21 03:25 Anion Gap 21 mmol/L 08/03/21 03:25 BUN 77 mg/dL (7-17) H 08/03/21 03:25 Creatinine 2.8 mg/dL (0.6-1.2) H 08/03/21 03:25 Estimated GFR 21 ml/min 08/03/21 03:25 BUN/Creatinine Ratio 28 % 08/03/21 03:25 Glucose 187 mg/dL (65-100) H 08/03/21 03:25 POC Glucose 190 mg/dL (70-105) H 08/03/21 05:47 Lactic Acid 1.90 mmol/L (0.7-2.0) 08/01/21 05:44 Calcium 8.2 mg/dL (8.4-10.2) L 08/03/21 03:25 Magnesium 1.80 mg/dL (1.7-2.3) 08/03/21 03:25 Ferritin 4832.0 ng/mL (10.0-200.0) H 07/31/21 11:09 Total Bilirubin 1.10 mg/dL (0.1-1.2) 08/03/21 03:25 AST 49 units/L (5-40) H 08/03/21 03:25 ALT 20 units/L (7-56) 08/03/21 03:25 Alkaline Phosphatase 70 units/L (35-129) 08/03/21 03:25 Lactate Dehydrogenase 1809 units/L (91-180) H 07/31/21 11:09 Troponin T < 0.010 ng/mL (0.00-0.029) 08/02/21 03:49 C-Reactive Protein 32.70 mg/dL (0.00-1.30) H 07/31/21 11:09 NT-Pro-B Natriuret Pep 8486 pg/mL (0-900) H 07/31/21 09:46 Total Protein 5.6 g/dL (6.3-8.2) L 08/03/21 03:25 Albumin 2.1 g/dL (3.9-5) L 08/03/21 03:25 Albumin/Globulin Ratio 0.6 % 08/03/21 03:25 Triglycerides 235 mg/dL (2-149) H 07/31/21 09:27 Cholesterol 125 mg/dL (50-199) 07/31/21 09:27 LDL Cholesterol Direct 50 mg/dL (50-130) 07/31/21 09:27 HDL Cholesterol 29 mg/dL (40-59) L 07/31/21 09:27 Cholesterol/HDL Ratio 4.31 % 07/31/21 09:27 Procalcitonin 2.12 ng/mL (<0.15) 07/31/21 11:09 Arterial Blood Glucose 216 mg/dL (65-95) H 08/03/21 04:58 Urine Color Tori (Yellow) 08/02/21 13:54 Urine Turbidity Cloudy (Clear) 08/02/21 13:54 Urine pH 5.0 (5.0-7.0) 08/02/21 13:54 Ur Specific [place] 1.017 (1.003-1.030) 08/02/21 13:54 Urine Protein 30 mg/dl mg/dL (Negative) 08/02/21 13:54 Urine Glucose (UA) 50 mg/dL (Negative) 08/02/21 13:54 Urine Ketones Neg mg/dL (Negative) 08/02/21 13:54 Urine Blood Mod (Negative) 08/02/21 13:54 Urine Nitrite Neg (Negative) 08/02/21 13:54 Urine Bilirubin Neg (Negative) 08/02/21 13:54 Urine Urobilinogen 4.0 mg/dL (<2.0) 08/02/21 13:54 Ur Leukocyte Esterase Neg (Negative) 08/02/21 13:54 Urine WBC (Auto) 12.0 /HPF (0.0-6.0) H 08/02/21 13:54 Urine RBC (Auto) 66.0 /HPF (0.0-6.0) 08/02/21 13:54 U Epithel Cells (Auto) 2.0 /HPF (0-13.0) 08/02/21 13:54 Urine Mucus Few /HPF 08/02/21 13:54 Urine Creatinine 170.6 mg/dL (0.1-20.0) H 08/02/21 13:54 Protein/Creatinin Ratio 0.54 08/02/21 13:54 Urine Sodium 10 mmol/L 08/02/21 13:54 Urine Total Protein 92 mg/dL (5-11.8) H 08/02/21 13:54 Coronavirus (PCR) Positive (Negative) A 08/01/21 09:00 Blood Type O POSITIVE 07/31/21 18:30 Antibody Screen Negative 07/31/21 18:30 Microbiology: Microbiology 07/31/21 11:09 Peripheral/Venous Blood Culture - Preliminary NO GROWTH AFTER 48 HOURS 07/31/21 11:09 Peripheral/Venous Blood Culture - Preliminary NO GROWTH AFTER 48 HOURS 07/31/21 17:17 Tracheal Aspirate Sputum Culture - Final Methicillin Resist S. Aureus Asher/IV: Voiding Method Indwelling Catheter Active Medications - Current Medications Current Medications: Generic Name Dose Route Start Last Admin Trade Name Freq PRN Reason Stop Dose Admin Acetaminophen 650 mg 07/31/21 11:44 Acetaminophen 325 Mg Tab PO Q4H PRN Pain MILD(1-3)/Fever >100.5/PIERCE Albuterol 2.5 mg 07/31/21 11:44 Albuterol 2.5 Mg/3 Ml Nebu IH Q4HRT PRN Shortness Of Breath Lipase/Protease/Amylase 1 each 08/02/21 18:24 Lipase 10,500/Protease 25,000/Amylase 43,750 (Units) Dr Jain FEEDTUBE PRN PRN For Clogged Feeding Tube Ascorbic Acid 500 mg 07/31/21 22:00 08/02/21 21:35 Ascorbic Acid 500 Mg Tab PO 500 mg BID TRISTEN Administration Cholecalciferol 1,000 unit 08/01/21 10:00 08/02/21 09:30 Cholecalciferol (Vit D3) 400 Unit Tab PO 1,000 unit QDAY TRISTEN Administration Cyclobenzaprine HCl 10 mg 07/31/21 12:00 08/02/21 09:29 Cyclobenzaprine 10 Mg Tab PO 10 mg TID PRN Administration MUSCLE PAIN/SPASMS Dextrose 0 ml 08/02/21 14:38 Dextrose 50% In Water (25gm) 50 Ml Syringe IV Q30MIN PRN Hypoglycemia Protocol Famotidine 20 mg 08/02/21 22:00 08/02/21 21:34 Famotidine 20 Mg/2 Ml Inj IV 20 mg HS TRISTEN Administration Fentanyl 50 mcg 08/01/21 11:52 Fentanyl 100 Mcg/2 Ml Inj IV Q10MIN PRN ANALGESIA Heparin Sodium (Porcine) 4,500 unit 07/31/21 15:35 08/03/21 01:00 Heparin 10,000 Units/10 Ml Vial 40 unit/kg (4500 unit) 4,500 unit IV Administration Q6H PRN Anti-Xa Assay < 0.1 units/ml Hydromorphone HCl 0.25 mg 07/31/21 11:44 08/01/21 00:58 Hydromorphone 1 Mg/1 Ml Inj IV 0.25 mg Q4H PRN Administration Pain, Moderate (4-6) Hydromorphone HCl 0.5 mg 07/31/21 11:44 Hydromorphone 1 Mg/1 Ml Inj IV Q23H PRN Pain , Severe (7-10) Hydrophilic Ointment 1 applic 07/31/21 15:23 Lip Therapy Vaseline TP Q2HR PRN Dry Lips Heparin Sodium/Sodium Chloride 25,000 unit in 500 mls @ 20 mls/hr 07/31/21 16:00 08/02/21 10:54 Heparin/ 0.45% Nacl-25,000 Unit/500 Ml IV 950 units/hr TITRATE TRISTEN 19 mls/hr Titration Protocol 1,000 UNITS/HR Propofol 1,000 mg in 100 mls @ 3.402 mls/hr 07/31/21 16:00 08/03/21 05:35 Diprivan 10 Mg/Ml IV 50 mcg/kg/min TITR TRISTEN 34.019 mls/hr Administration Protocol 5 MCG/KG/MIN Norepinephrine 4 mg in 250 mls @ 18.75 mls/hr 07/31/21 17:00 08/03/21 05:37 Levophed Drip 4 Mg/Ns 250 Ml IV 4 mcg/min TITR TRISTEN 15 mls/hr Administration Protocol 5 MCG/MIN Fentanyl Citrate 2,000 mcg in 100 mls @ 5.67 mls/hr 08/01/21 12:00 08/03/21 03:46 Fentanyl Drip Premix IV 4 mcg/kg/hr TITR TRISTEN 22.68 mls/hr Administration Protocol 1 MCG/KG/HR Vasopressin 20 unit/ Sodium 101 mls @ 9.09 mls/hr 08/02/21 23:00 08/03/21 03:48 Chloride IV 0.03 units/min TITR TRISTEN 9.09 mls/hr Administration Protocol 0.03 UNITS/MIN Epinephrine 8 mg/ Sodium 250 mls @ 3.75 mls/hr 08/02/21 23:00 08/03/21 01:07 Chloride IV 2 mcg/min TITR TRISTEN 3.75 mls/hr Administration Protocol 2 MCG/MIN Phenylephrine HCl 100 mg/ 100 mls @ 3 mls/hr 08/03/21 01:15 Sodium Chloride IV TITR TRISTEN Protocol 50 MCG/MIN Amiodarone HCl 900 mg/ 500 mls @ 33.333 mls/hr 08/03/21 04:00 08/03/21 03:50 Dextrose IV 1 mg/min DIRECT TRISTEN 33.333 mls/hr Administration Protocol 1 MG/MIN Diltiazem HCl 100 mg in 100 mls @ 5 mls/hr 08/03/21 05:00 08/03/21 05:38 Cardizem/D5w 100mg/100ml IV 5 mg/hr TITR TRISTEN 5 mls/hr Administration Protocol 5 MG/HR Lactated Ringer's 1,000 mls @ 999 mls/hr 08/03/21 07:30 Lactated Ringers IV 08/03/21 11:30 [id number] TRISTEN Levofloxacin/Dextrose 750 mg in 150 mls @ 100 mls/hr 08/03/21 10:00 Levaquin 750mg/150ml IV Q48H [facility] Protocol Insulin Human Lispro 0 unit 08/03/21 12:00 Insulin Lispro 100 Unit/Ml SUB-Q Q6HR [facility] Protocol Methylprednisolone Sodium Succinate 40 mg 07/31/21 14:00 08/03/21 06:23 Methylprednisolone Sod Succinate 40 Mg/1 Ml Inj IV 40 mg Q8HR TRISTEN Administration Multi-Ingred Cream/Lotion/Oil/Oint 1 applic 07/31/21 15:23 Mineral Oil/Petrolatum, White Ophth Oint 3.5 Gm OU Q4HR PRN Dry Eye(s) Ondansetron HCl 4 mg 07/31/21 11:44 Ondansetron 4 Mg/2 Ml Inj IV Q8H PRN Nausea And Vomiting Simple Syrup 30 ml 08/02/21 18:24 Simple Syrup 15 Ml FEEDTUBE PRN PRN Hypoglycemia Sodium Bicarbonate 325 mg 08/02/21 18:24 Sodium Bicarbonate 325 Mg Tab FEEDTUBE PRN PRN For Clogged Feeding Tube Sodium Chloride 10 ml 07/31/21 22:00 08/02/21 21:36 Sodium Chloride 0.9% 10 Ml Flush Syringe IV 10 ml BID TRISTEN Administration Sodium Chloride 10 ml 07/31/21 11:44 Sodium Chloride 0.9% 10 Ml Flush Syringe IV PRN PRN LINE FLUSH Zinc Sulfate 220 mg 07/31/21 22:00 08/02/21 21:34 Zinc Sulfate 220 Mg Cap PO 220 mg BID TRISTEN Administration Nutrition/Malnutrition Assess - Dietary Evaluation Nutrition/Malnutrition Findings: Nutrition Notes Start: 08/01/21 12:02 Freq: Status: Active Protocol: Document 08/01/21 12:03 MORTEZA (Rec: 08/01/21 12:12 [facility] [id number]) Nutrition Notes Need for Assessment generated from: MD Order Initial or Follow up Assessment Current Diagnosis Acute Kidney Injury,Diabetes, Sepsis,Hypertension,Heart Failure Other Pertinent Diagnosis Pneu, r/o COVID-19, NSTEMI, afib, RA Current Diet Cardiac Labs/Tests BUN 83 Cr 2.5 BG 410 Pertinent Medications Vit C and D3, Heparin gtt, Solumedrol, Levophed gtt, Propofol at 20.412ml/hr ( provides 539 kcal), Senokot, NS at 100ml/hr, Zinc sulfate Height 6 ft Weight 113.398 kg Bryant Body Weight (kg) 72.72 BMI 33.9 Weight Status Obese Subjective/Other Information RD consulted to evaluate nutritional intake. Pt in ED at this time and intubated on vent support. Burn Absent Trauma Absent Difficulty In Swallowing Skin Integrity/Comment Zev score: 12 Minimum of two criteria No #1 Nutrition Diagnosis Inadequate oral intake Etiology mech ventilation As Evidenced by Signs and Symptoms pt NPO Is patient on ventilator? Yes Is Patient Ambulatory and/or Out of Bed No REE-([place]-confined to bed) 2159.964 Kcal/Kg value to use for calculation 15 Approximate Energy Requirements Using 1701 kcal/Kg Calculation Used for Recommendations Kcal/kg Additional Notes Pro needs 2g/kg IBW: 145g/day Fluid needs 1ml/kcal Nutrition Intervention Change Diet Order: Advance diet when medically feasible Nutrition Support: Vital HP at 65ml/hr if unable to advance diet within 24- 48hrs. Goal #1 Eiter advance diet or start EN support to meet nutrient needs Anticipated Discharge Needs: Unable to identify at this time Follow-Up By: 08/03/21 Additional Comments F/U: transfer to ICU, diet advancement vs TF consult, vent status
--- NOTE | 2021-08-02 18:01 | Progress Note ---
Assessment and Plan Echo reviewed - EF 50-55%, RV mildly hypokinetic, mild AR, no evidence of , mild TR, RVSP 48mmHg. Cardiac enzymes trending down and now noted to be negative. Suspect NSTEMI Type 2 in the setting of acute hypoxia. Continue anticoagulation with heparin gtt given elevated D-dimer and hx of AF. Further mgmt of COVID-19 infection as per Primary teams. Pt seen in conjunction with Dr. Marks, who agrees with the assessment and plan of care. - Patient Problems (1) Acute hypoxemic respiratory failure Current Visit: Yes Status: Acute (2) Sepsis Current Visit: Yes Status: Acute (3) Pneumonia due to COVID-19 virus Current Visit: Yes Status: Acute (4) Elevated d-dimer Current Visit: Yes Status: Acute (5) (HFpEF) heart failure with preserved ejection fraction Current Visit: Yes Status: Chronic (6) RHINA (acute kidney injury) Current Visit: Yes Status: Acute (7) Paroxysmal atrial fibrillation Current Visit: Yes Status: Chronic (8) NSTEMI (non-ST elevated myocardial infarction) Current Visit: Yes Status: Acute Plan to address problem: Type 2 (9) HTN (hypertension) Current Visit: Yes Status: Chronic Qualifiers: Hypertension type: primary hypertension Qualified Code(s): I10 - Essential (primary) hypertension (10) Diabetes mellitus Current Visit: Yes Status: Chronic Subjective Date of service: 08/02/21 Principal diagnosis: COVID-19 PNA Interval history: No acute events overnight. On Levo gtt; however, BP increasingly elevated this afternoon. Weaning underway. Objective Last Vital Signs Temp 97.7 F 08/02/21 01:00 Pulse 75 08/02/21 15:48 Resp 40 H 08/02/21 15:39 BP 175/79 08/02/21 05:01 Pulse Ox 95 08/02/21 15:48 - Labs and Meds Cardiac Enzymes 08/02/21 Range/Units 03:49 AST 27 (5-40) units/L CBC 08/02/21 Range/Units 03:49 WBC 20.2 H (4.5-11.0) K/mm3 RBC 3.81 (3.65-5.03) M/mm3 Hgb 11.6 (10.1-14.3) gm/dl Hct 34.9 (30.3-42.9) % Plt Count 197 (140-440) K/mm3 Comprehensive Metabolic Panel 08/02/21 Range/Units 03:49 Sodium 140 (137-145) mmol/L Potassium 4.3 (3.6-5.0) mmol/L Chloride 104.1 (98-107) mmol/L Carbon Dioxide 19 L (22-30) mmol/L BUN 77 H (7-17) mg/dL Creatinine 2.0 H (0.6-1.2) mg/dL Glucose 357 H (65-100) mg/dL Calcium 9.4 (8.4-10.2) mg/dL AST 27 (5-40) units/L ALT 21 (7-56) units/L Alkaline Phosphatase 83 (35-129) units/L Total Protein 6.4 (6.3-8.2) g/dL Albumin 2.7 L (3.9-5) g/dL - Imaging and Cardiology EKG: report reviewed, image reviewed Echo: report reviewed - EKG Sinus rhythms and dysrhythmias: sinus tachycardia Ventricular dysrhythmias: ventricular premature com Chamber hypertrophy or enlargement: left ventricular hypertro - Allied health notes Allied health notes reviewed: nursing
[2021-08-02] MEDS ORDERED: LIPASE 10,500/PROTEASE 25,000/AMYLASE 43,750 (UNITS) DR CAP FEEDTUBE PRN (18:24)
[2021-08-02] MEDS ORDERED: SODIUM BICARBONATE 325 MG TAB FEEDTUBE PRN (18:24)
[2021-08-02] MEDS ORDERED: SIMPLE SYRUP 15 ML FEEDTUBE PRN (18:24)
--- NOTE | 2021-08-02 18:36 | Procedure Note ---
Date of procedure: 08/02/21 Pre-op diagnosis: Sepsis Post-op diagnosis: same Procedure: Patient was evaluated and required arterial line placement for Hemodynanic monitoring due to high pressors requirement. Informed consent was obtained from patient's daughter, Ophelia Spivey A time-out was completed verifying correct patient, procedure, site, and positioning. Hand hygiene were performed immediately prior to the procedure and sterile technique was used throughout the procedure. After an Jaime test was performed to ensure adequate perfusion, the vessel was identify using an ultrasound machine, the Left wrist was then prepped using chlorhexidine scrub and draped in sterile fashion using a three quarter sheet drape. The left radial artery was then again identified and the wrist was positioned in the usual fashion. Anesthesia was achieved using 1% lidocaine. Using the Arrow Radial Arterial Line Kit, a finder needle was inserted into the radial artery under ultrasound guidance, pulsating arterial blood return was obtained, then a guidewire was advanced easily into the radial artery. The catheter was then advanced over the wire and the needle and wire were withdrawn. The catheter was then connected to the sole buffer and zeroed, appropriate waveform and blood pressure tracing was observed on the monitor. The catheter was sutured in place, a Biopatch was placed at the insertion site and covered with a sterile dressing. The patient tolerated the procedure well and no complications noted. Total Time Spent with Patient (Minutes): 40 minutes Surgeon: NIK CARR Estimated blood loss: minimal Condition: stable Disposition: ICU
[2021-08-02] MEDS ORDERED: SODIUM CHLORIDE 0.9% 1000 ML 1,000 ML ONE (22:57)
[2021-08-02] MEDS ORDERED: VASOPRESSIN 20 UNIT in SODIUM CHLORIDE 0.9% 100 ML IV SCH (23:00)
[2021-08-02] MEDS: VASOPRESSIN 20 UNIT in SODIUM CHLORIDE 0.9% 100 ML IV SCH (23:14)
[2021-08-02] MEDS ORDERED: EPINEPHrine 1 MG/1 ML 8 MG in SODIUM CHLORIDE 0.9% 250ML 242 ML IV SCH (23:45)
[2021-08-03] MEDS: EPINEPHrine 1 MG/1 ML 8 MG in SODIUM CHLORIDE 0.9% 250ML 242 ML IV SCH ×3 (01:07→18:27)
[2021-08-03] MEDS: NORepinephrine/NS 4 MG-250 ML 4 MG/250 ML BAG IV SCH ×5 (01:08→08:42)
[2021-08-03] MEDS ORDERED: SODIUM BICARB 8.4% 50 MEQ/50 ML SYRINGE IV ONE ×3 (01:47→15:00)
[2021-08-03] MEDS ORDERED: ADENOSINE 6 MG/2 ML INJ ONE (03:06)
[2021-08-03 03:38] LABS: Hematocrit 33.3 % (30.3-42.9); Hemoglobin 10.7 gm/dl (10.1-14.3); Mean Corpuscular HGB Conc 32 % (30-34); Mean Corpuscular Volume 94 fl (79-97); Platelet Count 242 K/mm3 (140-440); Red Blood Count 3.54 M/mm3 (3.65-5.03); Red Cell Distribution Width 14.9 % (13.2-15.2)
[2021-08-03] MEDS: fentaNYL DRIP Premix 2,000 MCG/100 ML BAG IV SCH ×5 (03:46→21:52)
[2021-08-03] MEDS: VASOPRESSIN 20 UNIT in SODIUM CHLORIDE 0.9% 100 ML IV SCH ×3 (03:48→18:26)
[2021-08-03] MEDS: AMIODARONE 900 MG in DEXTROSE 5% IN WATER 482 ML IV SCH (03:50)
[2021-08-03 04:06] LABS: Albumin 2.1 g/dL (3.9-5); Calcium 8.2 mg/dL (8.4-10.2)
[2021-08-03] MEDS ORDERED: dilTIAZem 25 MG/5 ML INJ IV ONE (04:23)
--- NOTE | 2021-08-03 04:55 | Event Note ---
Date: 08/03/21 ANDRES MUNROE called on 65-year-old -[place] female who has been on admission for acute hypoxic respiratory failure, COVID-19 pneumonia. Resu scitative measures were commenced according to ACLS protocol. Patient had a dose of epinephrine with return of spontaneous circulation. She was found to be having SVT prior to the PEA and has had multiple doses of adenosine. She continues to be in SVT after the resuscitation. We will place patient on IV Cardizem. We will check labs and await further evaluation by cardiology.
[2021-08-03] MEDS ORDERED: dilTIAZem/D5W 100 MG/100 ML BAG IV SCH (05:00)
[2021-08-03] MEDS ORDERED: dilTIAZem 50 MG/10 ML INJ IV ONE (05:00)
[2021-08-03] MEDS: methylPREDNISolone Sod Succinate 40 MG/1 ML INJ IV SCH ×3 (06:23→21:51)
--- NOTE | 2021-08-03 07:11 | Progress Note ---
Assessment and Plan Septic shock s/p Cardiopulmonary arrest with ROSC Acute hypoxemic respiratory failure on MVS Bilateral pneumonia, +MRSA Acute renal failure, unknown baseline GFR/Creatinine NSTEMI- possible type 2 ischemia Obesity COVID infection Discussion Patient is in septic shock with MODS. s/p Cardiopulmonary arrest.Changes made on the ventilator for better oxygenation and acid-base. Plateau pressures are acceptable, so PEEP has been increased to 14, the tidal volumes decreased to 400 and RR to 30- to improve minute ventilation while conforming to low tidal volume strategies. Continue with Vancomycin, renal dosing and Levofloxacin. Await further ID recommendations. Renal is following. We do not have capability for CVVHD, however if MANAGER POST is needed, will change the LAURY CVL to a trialysis catheter. Follow up cultures and adjust antibiotics as clinically indicated Plan -Wean vasopressor support to keep MAP >65 -Give a liter bolus of LR, she appears intravasculary depleted - Continue with Asher catheter for accurate intake and output in critically ill patient - VAP bundle , (HOB > 40 degrees). Continue to monitor airway pressures - glycemic control with SSI for target BG 140-180 mg while critically ill; avoid hypoglycemia Stop insulin. Accuchecks with sliding scale. -Address nutrition int eh next 24 hours. She has an OGT in place - Lung protective strategies, ARDS net protocol. Permissive hypercapnia is acceptable - bronchodilators with pulmonary hygiene per RT - avoid nephrotoxins, renally dose all medications. Avoid NSAIDs - prn analgesia per CPOT pain score -Sedation with Fentanyl/Propofol, titrate to RASS -1 to -2 - Maintenance of sleep-wake cycle, avoid delirium - supportive transfusions for serum Hb < 7.0g/dl - Stress ulcer prophylaxis- Famotidine -VTE prophylaxis- therapeutic heparin ordered by Cardiology for NSTEMI/paroxysmal Atrial fibrillation - mobility protocols for pressure ulcer prevention - Monitor hemodynamics closely COVID SPECIFIC INTERVENTIONS -systemic steroids empirically -Not a candidate fro Remdesivir- RHINA -Not a candidate fro Tociluzimab , she has MRSA pneumonia and now is in spetic shock - Continue contact and airborne isolation Discussed with ID, primary service Unable to get in touch with the daughter or son to update them. FREEZER PERSON, RN will continue to try to get in touch with the family today CONDITION: CRITICAL PROGNOSIS: GUARDED-GRAVE CODE STATUS: FULL CODE The high probability of a clinically significant, sudden or life-threatening deterioration of the [respiratory, cardiovascular, renal ] system(s) required my full and direct attention, intervention and personal management. The aggregate critical care time was [73] minutes without overlap. Time includes spent on; [x] Data Review and interpretation [x] Patient assessment and monitoring of vital signs [x] Documentation [x] Medication orders and management Subjective Date of service: 08/03/21 Principal diagnosis: COVID-19 PNA Interval history: Follow up for; Acute hypoxic resp failure;COVID, bilateral pneumonia; MRSA pneu monia; septic shock Patient seen adn examined. Vitals, albs, medications, chart and imaging reviewe d. Events overnight managed remotely. s/p Cardiopulmonary arrest x2, PEA arrest. 4 pressor shock with high grade fevers- Vasopressin, Norepinephrine, Epinephrine, Neosynephrine Lines: RIJ CVL, Radial arterial line; Asher catheter Vent: MVS AV-VC 20/450/+12/100% Plat pressure 24. Antibiotics: Vancomycin, Levofloxacin Objective Vital Signs - 12hr 08/02/21 08/02/21 08/02/21 19:39 20:00 21:36 Temperature 99.9 F H Pulse Rate 105 H Respiratory 40 H Rate Blood Pressure 96/47 O2 Sat by Pulse 100 94 Oximetry 08/02/21 08/03/21 08/03/21 23:39 00:00 03:00 Temperature 99.7 F H Pulse Rate Respiratory 40 H 27 H Rate Blood Pressure O2 Sat by Pulse 100 100 Oximetry 08/03/21 08/03/21 08/03/21 03:40 04:36 05:28 Temperature 99.8 F H Pulse Rate 151 H Respiratory Rate Blood Pressure 156/71 O2 Sat by Pulse 80 L 77 L Oximetry 08/03/21 05:38 Temperature Pulse Rate 106 H Respiratory Rate Blood Pressure 107/49 O2 Sat by Pulse Oximetry Constitutional: appears uncomfortable, other (moderate distress, orally i ntubated, ETT to MVS) Eyes: non-icteric ENT: oropharynx dry Neck: supple, no lymphadenopathy, no JVD Effort: mildly labored Ascultation: Bilateral: diminished breath sounds, rhonchi Cardiovascular: regular rate and rhythm (tachycardia), other (S1,S2) Gastrointestinal: normoactive bowel sounds, hypoactive bowel sounds, soft, non- tender, non-distended, other (Asher catheter) Integumentary: normal Extremities: no cyanosis, no edema Neurologic: pupils equal and round, unable to assess Psychiatric: anxious CBC and BMP: 08/03/21 03:25 08/03/21 03:25 ABG, PT/INR, D-dimer: ABG ABG pH 7.102 (7.320-7.450) L 08/03/21 04:58 POC ABG pCO2 54.7 mmHg (32.0-48.0) H 08/03/21 04:58 ABG pCO2 41.4 mm Hg 07/31/21 18:10 POC ABG pO2 44.5 mmHg (83-108) L 08/03/21 04:58 ABG pO2 151.8 mm Hg (80.0-90.0) H 07/31/21 18:10 POC ABG HCO3 16.7 08/03/21 04:58 ABG O2 Saturation 73.3 (0-100) 08/03/21 04:58 PT/INR, D-dimer PT 18.5 Sec. (12.2-14.9) H 07/31/21 18:30 INR 1.39 (0.87-1.13) H 07/31/21 18:30 D-Dimer 2619.75 ng/mlDDU (0-234) H 07/31/21 09:46 Abnormal lab findings: Abnormal Labs 07/31/21 07/31/21 07/31/21 09:27 09:27 09:46 WBC 15.5 H RBC Hgb 14.5 H Hct 44.7 H Seg Neuts % (Manual) 77.0 H Lymphocytes % (Manual) 10.0 L Monocytes % (Manual) 13.0 H Nucleated RBC % Seg Neutrophils # Man 11.9 H Lymphocytes # (Manual) Monocytes # (Manual) 2.0 H PT 17.0 H INR 1.25 H D-Dimer 2619.75 H Heparin Anti-Xa Level ABG pH POC ABG pCO2 POC ABG pO2 ABG pO2 ABG O2 Saturation ABG Base Excess ABG Oxyhemoglobin ABG Sodium ABG Chloride ABG Glucose Oxyhemoglobin Carboxyhemoglobin Sodium Chloride Carbon Dioxide BUN Creatinine Glucose POC Glucose Calcium Ferritin AST Lactate Dehydrogenase Troponin T 0.069 H C-Reactive Protein NT-Pro-B Natriuret Pep Total Protein Albumin Triglycerides 235 H HDL Cholesterol 29 L Arterial Blood Glucose Urine WBC (Auto) Urine Creatinine Urine Total Protein Coronavirus (PCR) 07/31/21 07/31/21 07/31/21 09:46 10:48 11:09 WBC RBC Hgb Hct Seg Neuts % (Manual) Lymphocytes % (Manual) Monocytes % (Manual) Nucleated RBC % Seg Neutrophils # Man Lymphocytes # (Manual) Monocytes # (Manual) PT INR D-Dimer Heparin Anti-Xa Level ABG pH POC ABG pCO2 POC ABG pO2 ABG pO2 ABG O2 Saturation ABG Base Excess ABG Oxyhemoglobin ABG Sodium ABG Chloride ABG Glucose Oxyhemoglobin Carboxyhemoglobin Sodium 135 L Chloride 93.6 L Carbon Dioxide 17 L BUN 71 H Creatinine 2.7 H Glucose 468 H POC Glucose 458 H Calcium Ferritin 4832.0 H AST 79 H Lactate Dehydrogenase Troponin T C-Reactive Protein NT-Pro-B Natriuret Pep 8486 H Total Protein Albumin 3.4 L Triglycerides HDL Cholesterol Arterial Blood Glucose Urine WBC (Auto) Urine Creatinine Urine Total Protein Coronavirus (PCR) 07/31/21 07/31/21 07/31/21 11:09 13:03 17:58 WBC RBC Hgb Hct Seg Neuts % (Manual) Lymphocytes % (Manual) Monocytes % (Manual) Nucleated RBC % Seg Neutrophils # Man Lymphocytes # (Manual) Monocytes # (Manual) PT INR D-Dimer Heparin Anti-Xa Level ABG pH POC ABG pCO2 POC ABG pO2 ABG pO2 62.5 L ABG O2 Saturation 90.0 L ABG Base Excess -3.0 L ABG Oxyhemoglobin ABG Sodium ABG Chloride ABG Glucose Oxyhemoglobin 88.3 L Carboxyhemoglobin Sodium Chloride Carbon Dioxide BUN Creatinine Glucose POC Glucose 400 H Calcium Ferritin AST Lactate Dehydrogenase 1809 H Troponin T C-Reactive Protein 32.70 H NT-Pro-B Natriuret Pep Total Protein Albumin Triglycerides HDL Cholesterol Arterial Blood Glucose Urine WBC (Auto) Urine Creatinine Urine Total Protein Coronavirus (PCR) 07/31/21 07/31/21 07/31/21 18:10 18:30 20:10 WBC RBC Hgb Hct Seg Neuts % (Manual) Lymphocytes % (Manual) Monocytes % (Manual) Nucleated RBC % Seg Neutrophils # Man Lymphocytes # (Manual) Monocytes # (Manual) PT 18.5 H INR 1.39 H D-Dimer Heparin Anti-Xa Level ABG pH 7.319 L POC ABG pCO2 POC ABG pO2 ABG pO2 151.8 H ABG O2 Saturation ABG Base Excess -5.0 L ABG Oxyhemoglobin ABG Sodium ABG Chloride ABG Glucose Oxyhemoglobin Carboxyhemoglobin Sodium Chloride Carbon Dioxide BUN Creatinine Glucose POC Glucose 428 H Calcium Ferritin AST Lactate Dehydrogenase Troponin T C-Reactive Protein NT-Pro-B Natriuret Pep Total Protein Albumin Triglycerides HDL Cholesterol Arterial Blood Glucose Urine WBC (Auto) Urine Creatinine Urine Total Protein Coronavirus (PCR) 08/01/21 08/01/21 08/01/21 00:28 05:44 05:44 WBC 15.9 H RBC Hgb Hct Seg Neuts % (Manual) 88.0 H Lymphocytes % (Manual) 6.0 L Monocytes % (Manual) Nucleated RBC % 2.0 H Seg Neutrophils # Man 14.0 H Lymphocytes # (Manual) 1.0 L Monocytes # (Manual) PT INR D-Dimer Heparin Anti-Xa Level ABG pH POC ABG pCO2 POC ABG pO2 ABG pO2 ABG O2 Saturation ABG Base Excess ABG Oxyhemoglobin ABG Sodium ABG Chloride ABG Glucose Oxyhemoglobin Carboxyhemoglobin Sodium Chloride Carbon Dioxide 21 L BUN 83 H Creatinine 2.5 H Glucose 410 H POC Glucose 377 H Calcium Ferritin AST 46 H Lactate Dehydrogenase Troponin T C-Reactive Protein NT-Pro-B Natriuret Pep Total Protein 6.2 L D Albumin 2.8 L Triglycerides HDL Cholesterol Arterial Blood Glucose Urine WBC (Auto) Urine Creatinine Urine Total Protein Coronavirus (PCR) 08/01/21 08/01/21 08/01/21 06:33 07:56 09:00 WBC RBC Hgb Hct Seg Neuts % (Manual) Lymphocytes % (Manual) Monocytes % (Manual) Nucleated RBC % Seg Neutrophils # Man Lymphocytes # (Manual) Monocytes # (Manual) PT INR D-Dimer Heparin Anti-Xa Level ABG pH POC ABG pCO2 30.9 L POC ABG pO2 151.8 H ABG pO2 ABG O2 Saturation ABG Base Excess ABG Oxyhemoglobin 98.2 H ABG Sodium 134.8 L ABG Chloride ABG Glucose 391 H Oxyhemoglobin Carboxyhemoglobin Sodium Chloride Carbon Dioxide BUN Creatinine Glucose POC Glucose 345 H Calcium Ferritin AST Lactate Dehydrogenase Troponin T C-Reactive Protein NT-Pro-B Natriuret Pep Total Protein Albumin Triglycerides HDL Cholesterol Arterial Blood Glucose 391 H Urine WBC (Auto) Urine Creatinine Urine Total Protein Coronavirus (PCR) Positive A 08/01/21 08/01/21 08/01/21 13:17 18:15 18:46 WBC RBC Hgb Hct Seg Neuts % (Manual) Lymphocytes % (Manual) Monocytes % (Manual) Nucleated RBC % Seg Neutrophils # Man Lymphocytes # (Manual) Monocytes # (Manual) PT INR D-Dimer Heparin Anti-Xa Level 0.84 H ABG pH POC ABG pCO2 POC ABG pO2 ABG pO2 ABG O2 Saturation ABG Base Excess ABG Oxyhemoglobin ABG Sodium ABG Chloride ABG Glucose Oxyhemoglobin Carboxyhemoglobin Sodium Chloride Carbon Dioxide BUN Creatinine Glucose POC Glucose 345 H 373 H Calcium Ferritin AST Lactate Dehydrogenase Troponin T C-Reactive Protein NT-Pro-B Natriuret Pep Total Protein Albumin Triglycerides HDL Cholesterol Arterial Blood Glucose Urine WBC (Auto) Urine Creatinine Urine Total Protein Coronavirus (PCR) 08/01/21 08/02/21 08/02/21 22:22 00:56 02:51 WBC RBC Hgb Hct Seg Neuts % (Manual) Lymphocytes % (Manual) Monocytes % (Manual) Nucleated RBC % Seg Neutrophils # Man Lymphocytes # (Manual) Monocytes # (Manual) PT INR D-Dimer Heparin Anti-Xa Level ABG pH POC ABG pCO2 POC ABG pO2 79.6 L ABG pO2 ABG O2 Saturation ABG Base Excess ABG Oxyhemoglobin ABG Sodium ABG Chloride ABG Glucose 367 H Oxyhemoglobin Carboxyhemoglobin 0.4 L Sodium Chloride Carbon Dioxide BUN Creatinine Glucose POC Glucose 297 H 324 H Calcium Ferritin AST Lactate Dehydrogenase Troponin T C-Reactive Protein NT-Pro-B Natriuret Pep Total Protein Albumin Triglycerides HDL Cholesterol Arterial Blood Glucose 367 H Urine WBC (Auto) Urine Creatinine Urine Total Protein Coronavirus (PCR) 08/02/21 08/02/21 08/02/21 03:49 03:49 05:57 WBC 20.2 H RBC Hgb Hct Seg Neuts % (Manual) Lymphocytes % (Manual) Monocytes % (Manual) Nucleated RBC % Seg Neutrophils # Man Lymphocytes # (Manual) Monocytes # (Manual) PT INR D-Dimer Heparin Anti-Xa Level ABG pH POC ABG pCO2 POC ABG pO2 ABG pO2 ABG O2 Saturation ABG Base Excess ABG Oxyhemoglobin ABG Sodium ABG Chloride ABG Glucose Oxyhemoglobin Carboxyhemoglobin Sodium Chloride Carbon Dioxide 19 L BUN 77 H Creatinine 2.0 H Glucose 357 H POC Glucose 274 H Calcium Ferritin AST Lactate Dehydrogenase Troponin T C-Reactive Protein NT-Pro-B Natriuret Pep Total Protein Albumin 2.7 L Triglycerides HDL Cholesterol Arterial Blood Glucose Urine WBC (Auto) Urine Creatinine Urine Total Protein Coronavirus (PCR) 08/02/21 08/02/21 08/02/21 09:19 12:09 13:54 WBC RBC Hgb Hct Seg Neuts % (Manual) Lymphocytes % (Manual) Monocytes % (Manual) Nucleated RBC % Seg Neutrophils # Man Lymphocytes # (Manual) Monocytes # (Manual) PT INR D-Dimer Heparin Anti-Xa Level < 0.10 L ABG pH POC ABG pCO2 POC ABG pO2 ABG pO2 ABG O2 Saturation ABG Base Excess ABG Oxyhemoglobin ABG Sodium ABG Chloride ABG Glucose Oxyhemoglobin Carboxyhemoglobin Sodium Chloride Carbon Dioxide BUN Creatinine Glucose POC Glucose 291 H Calcium Ferritin AST Lactate Dehydrogenase Troponin T C-Reactive Protein NT-Pro-B Natriuret Pep Total Protein Albumin Triglycerides HDL Cholesterol Arterial Blood Glucose Urine WBC (Auto) 12.0 H Urine Creatinine Urine Total Protein Coronavirus (PCR) 08/02/21 08/02/21 08/02/21 13:54 17:34 18:52 WBC RBC Hgb Hct Seg Neuts % (Manual) Lymphocytes % (Manual) Monocytes % (Manual) Nucleated RBC % Seg Neutrophils # Man Lymphocytes # (Manual) Monocytes # (Manual) PT INR D-Dimer Heparin Anti-Xa Level ABG pH POC ABG pCO2 POC ABG pO2 ABG pO2 ABG O2 Saturation ABG Base Excess ABG Oxyhemoglobin ABG Sodium ABG Chloride ABG Glucose Oxyhemoglobin Carboxyhemoglobin Sodium Chloride Carbon Dioxide BUN Creatinine Glucose POC Glucose 172 H 187 H Calcium Ferritin AST Lactate Dehydrogenase Troponin T C-Reactive Protein NT-Pro-B Natriuret Pep Total Protein Albumin Triglycerides HDL Cholesterol Arterial Blood Glucose Urine WBC (Auto) Urine Creatinine 170.6 H Urine Total Protein 92 H Coronavirus (PCR) 08/02/21 08/02/21 08/02/21 20:17 21:38 22:03 WBC RBC Hgb Hct Seg Neuts % (Manual) Lymphocytes % (Manual) Monocytes % (Manual) Nucleated RBC % Seg Neutrophils # Man Lymphocytes # (Manual) Monocytes # (Manual) PT INR D-Dimer Heparin Anti-Xa Level ABG pH POC ABG pCO2 POC ABG pO2 ABG pO2 ABG O2 Saturation ABG Base Excess ABG Oxyhemoglobin ABG Sodium ABG Chloride ABG Glucose Oxyhemoglobin Carboxyhemoglobin Sodium Chloride Carbon Dioxide BUN Creatinine Glucose POC Glucose 180 H 167 H 158 H Calcium Ferritin AST Lactate Dehydrogenase Troponin T C-Reactive Protein NT-Pro-B Natriuret Pep Total Protein Albumin Triglycerides HDL Cholesterol Arterial Blood Glucose Urine WBC (Auto) Urine Creatinine Urine Total Protein Coronavirus (PCR) 08/02/21 08/02/21 08/03/21 23:22 23:49 01:03 WBC RBC Hgb Hct Seg Neuts % (Manual) Lymphocytes % (Manual) Monocytes % (Manual) Nucleated RBC % Seg Neutrophils # Man Lymphocytes # (Manual) Monocytes # (Manual) PT INR D-Dimer Heparin Anti-Xa Level ABG pH POC ABG pCO2 POC ABG pO2 ABG pO2 ABG O2 Saturation ABG Base Excess ABG Oxyhemoglobin ABG Sodium ABG Chloride ABG Glucose Oxyhemoglobin Carboxyhemoglobin Sodium Chloride Carbon Dioxide BUN Creatinine Glucose POC Glucose 154 H 139 H 129 H Calcium Ferritin AST Lactate Dehydrogenase Troponin T C-Reactive Protein NT-Pro-B Natriuret Pep Total Protein Albumin Triglycerides HDL Cholesterol Arterial Blood Glucose Urine WBC (Auto) Urine Creatinine Urine Total Protein Coronavirus (PCR) 08/03/21 08/03/21 08/03/21 02:02 03:25 03:25 WBC 21.7 H RBC 3.54 L Hgb Hct Seg Neuts % (Manual) Lymphocytes % (Manual) Monocytes % (Manual) Nucleated RBC % Seg Neutrophils # Man Lymphocytes # (Manual) Monocytes # (Manual) PT INR D-Dimer Heparin Anti-Xa Level ABG pH POC ABG pCO2 POC ABG pO2 ABG pO2 ABG O2 Saturation ABG Base Excess ABG Oxyhemoglobin ABG Sodium ABG Chloride ABG Glucose Oxyhemoglobin Carboxyhemoglobin Sodium Chloride 108.5 H Carbon Dioxide 18 L BUN 77 H Creatinine 2.8 H Glucose 187 H POC Glucose 137 H Calcium 8.2 L Ferritin AST 49 H Lactate Dehydrogenase Troponin T C-Reactive Protein NT-Pro-B Natriuret Pep Total Protein 5.6 L Albumin 2.1 L Triglycerides HDL Cholesterol Arterial Blood Glucose Urine WBC (Auto) Urine Creatinine Urine Total Protein Coronavirus (PCR) 08/03/21 08/03/21 08/03/21 03:37 04:58 05:47 WBC RBC Hgb Hct Seg Neuts % (Manual) Lymphocytes % (Manual) Monocytes % (Manual) Nucleated RBC % Seg Neutrophils # Man Lymphocytes # (Manual) Monocytes # (Manual) PT INR D-Dimer Heparin Anti-Xa Level ABG pH 7.102 L POC ABG pCO2 54.7 H POC ABG pO2 44.5 L ABG pO2 ABG O2 Saturation ABG Base Excess ABG Oxyhemoglobin 72.8 L ABG Sodium ABG Chloride 110.0 H ABG Glucose 216 H Oxyhemoglobin Carboxyhemoglobin Sodium Chloride Carbon Dioxide BUN Creatinine Glucose POC Glucose 146 H 190 H Calcium Ferritin AST Lactate Dehydrogenase Troponin T C-Reactive Protein NT-Pro-B Natriuret Pep Total Protein Albumin Triglycerides HDL Cholesterol Arterial Blood Glucose 216 H Urine WBC (Auto) Urine Creatinine Urine Total Protein Coronavirus (PCR) Chest x-ray: image reviewed (ETT in place, RIJ, bialteral alveoalr infiltrates) Allied health notes reviewed: RT
[2021-08-03] MEDS ORDERED: LACTATED RINGERS 1,000 ML IV SCH (07:30)
[2021-08-03] MEDS: PHENYLEPHRINE 100 MG in SODIUM CHLORIDE 0.9% 90 ML IV SCH ×5 (08:22→22:45)
[2021-08-03] MEDS: ASCORBIC ACID 500 MG TAB PO SCH ×2 (09:20→21:52)
[2021-08-03] MEDS: ZINC SULFATE 220 MG CAP PO SCH ×2 (09:20→21:52)
[2021-08-03] MEDS: CHOLECALCIFEROL (VIT D3) 400 UNIT TAB PO SCH (09:20)
--- NOTE | 2021-08-03 09:23 | XRay Report ---
XR chest 1V ap INDICATION / CLINICAL INFORMATION: follow up respiratory failure. COMPARISON: Radiograph from yesterday. FINDINGS: SUPPORT DEVICES: Unchanged. HEART /PULMONARY VASCULATURE: Unchanged. LUNGS / PLEURA: Bilateral opacities are not significant changed from prior study. No sizable pleural effusion. No pneumothorax. IMPRESSION: 1. No significant interval change. Signer Name: Vipul Fernandez MD Signed: 08/03/2021 9:19 AM Workstation Name: [id number]
[2021-08-03] MEDS ORDERED: SIMPLE SYRUP 15 ML FEEDTUBE PRN ×2 (10:13)
[2021-08-03] MEDS ORDERED: LIPASE 10,500/PROTEASE 25,000/AMYLASE 43,750 (UNITS) DR CAP FEEDTUBE PRN (10:13)
[2021-08-03] MEDS ORDERED: SODIUM BICARBONATE 325 MG TAB FEEDTUBE PRN (10:13)
[2021-08-03] MEDS: fentaNYL 100 MCG/2 ML INJ IV PRN ×2 (10:26→16:03)
[2021-08-03] MEDS ORDERED: AMIODARONE 150 MG in DEXTROSE 5% IN WATER 97 ML IV ONE (10:45)
--- NOTE | 2021-08-03 11:02 | Progress Note ---
Assessment and Plan Cultures: COVID-19 PCR: Positive 07/31/2021 blood culture: No growth 07/31/2021 sputum culture: MRSA 08/02/2021 urine culture: No growth A/P: 65-year-old female past medical history obesity, diabetes, rheumatoid arthritis, paroxysmal A. fib, CHF admitted as Covid PUI: #S/P PEA arrest 08/03/2021, shock: On multiple pressors #Acute hypoxic respiratory failure: Currently on the vent. Likely secondary to COVID-19 #Bilateral pneumonia secondary to COVID-19: CXR with bilateral multifocal pneum onia. Severe hypoxia. #CHF #Diabetes: tight glycemic control for best outcomes. #RHINA: Renally dose antibiotics. Recs: -On steroids per pulmonary, continue -Continue levofloxacin, vancomycin, renally dose -On anticoagulation -Not a candidate for remdesivir due to renal failure -Extremely poor prognosis with a very high mortality, MRSA in sputum, not a candidate for Actemra as per hospital/system guidelines Cathy Espana MD, FACP [facility] ([facility] O: [phone] F: [phone] Subjective Date of service: 08/03/21 Principal diagnosis: COVID-19 PNA Interval history: Low-grade temperatures, remains on the vent, critically ill. Coded due to PEA arrest earlier today, required ACLS protocol, epinephrine. Persistently hypoxic, on 100% FiO2. On pressors, amiodarone drip, heparin drip. Objective - Exam Narrative Exam: Physical Exam: Constitutional: sedated, intubated, on the vent Head, Ears, Nose: Normocephalic, atraumatic. External ears, nose normal Eyes: Conjunctivae/corneas clear. No icterus. No ptosis. Neck: intubated Oral: intubated Cardiovascular: S1, S2 + Respiratory: AE fair bilaterally and equal GI: Soft, bowel sounds + Musculoskeletal: No pedal edema, no cyanosis. Skin: No rash or abscess Hem/Lymphatic: No palpable cervical or supraclavicular nodes. No lymphangitis Psych: no agitation Neurological: sedated, intubated, on the vent, exam limited - Constitutional Vitals: Vital Signs Temp Pulse Resp BP Pulse Ox 99.8 F H 104 H 27 H 107/49 89 08/03/21 03:40 08/03/21 07:20 08/03/21 03:00 08/03/21 07:20 08/03/21 07:20 Temperature -Last 24 Hours Temperature 99.8 F Temperature 99.7 F Temperature 99.9 F - Labs CBC & Chem 7: 08/03/21 03:25 08/03/21 03:25 Labs: Abnormal lab results 08/02/21 08/02/21 08/02/21 Range/Units 12:09 13:54 13:54 WBC (4.5-11.0) K/mm3 RBC (3.65-5.03) M/mm3 ABG pH (7.320-7.450) POC ABG pCO2 (32.0-48.0) mmHg POC ABG pO2 (83-108) mmHg ABG Oxyhemoglobin (94-98) ABG Chloride (98-107) mmol/L ABG Glucose (65-95) mg/dL Chloride (98-107) mmol/L Carbon Dioxide (22-30) mmol/L BUN (7-17) mg/dL Creatinine (0.6-1.2) mg/dL Glucose (65-100) mg/dL POC Glucose 291 H (70-105) mg/dL Calcium (8.4-10.2) mg/dL AST (5-40) units/L Total Protein (6.3-8.2) g/dL Albumin (3.9-5) g/dL Arterial Blood Glucose (65-95) mg/dL Urine WBC (Auto) 12.0 H (0.0-6.0) /HPF Urine Creatinine 170.6 H (0.1-20.0) mg/dL Urine Total Protein 92 H (5-11.8) mg/dL 08/02/21 08/02/21 08/02/21 Range/Units 17:34 18:52 20:17 WBC (4.5-11.0) K/mm3 RBC (3.65-5.03) M/mm3 ABG pH (7.320-7.450) POC ABG pCO2 (32.0-48.0) mmHg POC ABG pO2 (83-108) mmHg ABG Oxyhemoglobin (94-98) ABG Chloride (98-107) mmol/L ABG Glucose (65-95) mg/dL Chloride (98-107) mmol/L Carbon Dioxide (22-30) mmol/L BUN (7-17) mg/dL Creatinine (0.6-1.2) mg/dL Glucose (65-100) mg/dL POC Glucose 172 H 187 H 180 H (70-105) mg/dL Calcium (8.4-10.2) mg/dL AST (5-40) units/L Total Protein (6.3-8.2) g/dL Albumin (3.9-5) g/dL Arterial Blood Glucose (65-95) mg/dL Urine WBC (Auto) (0.0-6.0) /HPF Urine Creatinine (0.1-20.0) mg/dL Urine Total Protein (5-11.8) mg/dL 08/02/21 08/02/21 08/02/21 Range/Units 21:38 22:03 23:22 WBC (4.5-11.0) K/mm3 RBC (3.65-5.03) M/mm3 ABG pH (7.320-7.450) POC ABG pCO2 (32.0-48.0) mmHg POC ABG pO2 (83-108) mmHg ABG Oxyhemoglobin (94-98) ABG Chloride (98-107) mmol/L ABG Glucose (65-95) mg/dL Chloride (98-107) mmol/L Carbon Dioxide (22-30) mmol/L BUN (7-17) mg/dL Creatinine (0.6-1.2) mg/dL Glucose (65-100) mg/dL POC Glucose 167 H 158 H 154 H (70-105) mg/dL Calcium (8.4-10.2) mg/dL AST (5-40) units/L Total Protein (6.3-8.2) g/dL Albumin (3.9-5) g/dL Arterial Blood Glucose (65-95) mg/dL Urine WBC (Auto) (0.0-6.0) /HPF Urine Creatinine (0.1-20.0) mg/dL Urine Total Protein (5-11.8) mg/dL 08/02/21 08/03/21 08/03/21 Range/Units 23:49 01:03 02:02 WBC (4.5-11.0) K/mm3 RBC (3.65-5.03) M/mm3 ABG pH (7.320-7.450) POC ABG pCO2 (32.0-48.0) mmHg POC ABG pO2 (83-108) mmHg ABG Oxyhemoglobin (94-98) ABG Chloride (98-107) mmol/L ABG Glucose (65-95) mg/dL Chloride (98-107) mmol/L Carbon Dioxide (22-30) mmol/L BUN (7-17) mg/dL Creatinine (0.6-1.2) mg/dL Glucose (65-100) mg/dL POC Glucose 139 H 129 H 137 H (70-105) mg/dL Calcium (8.4-10.2) mg/dL AST (5-40) units/L Total Protein (6.3-8.2) g/dL Albumin (3.9-5) g/dL Arterial Blood Glucose (65-95) mg/dL Urine WBC (Auto) (0.0-6.0) /HPF Urine Creatinine (0.1-20.0) mg/dL Urine Total Protein (5-11.8) mg/dL 08/03/21 08/03/21 08/03/21 Range/Units 03:25 03:25 03:37 WBC 21.7 H (4.5-11.0) K/mm3 RBC 3.54 L (3.65-5.03) M/mm3 ABG pH (7.320-7.450) POC ABG pCO2 (32.0-48.0) mmHg POC ABG pO2 (83-108) mmHg ABG Oxyhemoglobin (94-98) ABG Chloride (98-107) mmol/L ABG Glucose (65-95) mg/dL Chloride 108.5 H (98-107) mmol/L Carbon Dioxide 18 L (22-30) mmol/L BUN 77 H (7-17) mg/dL Creatinine 2.8 H (0.6-1.2) mg/dL Glucose 187 H (65-100) mg/dL POC Glucose 146 H (70-105) mg/dL Calcium 8.2 L (8.4-10.2) mg/dL AST 49 H (5-40) units/L Total Protein 5.6 L (6.3-8.2) g/dL Albumin 2.1 L (3.9-5) g/dL Arterial Blood Glucose (65-95) mg/dL Urine WBC (Auto) (0.0-6.0) /HPF Urine Creatinine (0.1-20.0) mg/dL Urine Total Protein (5-11.8) mg/dL 08/03/21 08/03/21 08/03/21 Range/Units 04:58 05:47 07:53 WBC (4.5-11.0) K/mm3 RBC (3.65-5.03) M/mm3 ABG pH 7.102 L (7.320-7.450) POC ABG pCO2 54.7 H (32.0-48.0) mmHg POC ABG pO2 44.5 L (83-108) mmHg ABG Oxyhemoglobin 72.8 L (94-98) ABG Chloride 110.0 H (98-107) mmol/L ABG Glucose 216 H (65-95) mg/dL Chloride (98-107) mmol/L Carbon Dioxide (22-30) mmol/L BUN (7-17) mg/dL Creatinine (0.6-1.2) mg/dL Glucose (65-100) mg/dL POC Glucose 190 H 221 H (70-105) mg/dL Calcium (8.4-10.2) mg/dL AST (5-40) units/L Total Protein (6.3-8.2) g/dL Albumin (3.9-5) g/dL Arterial Blood Glucose 216 H (65-95) mg/dL Urine WBC (Auto) (0.0-6.0) /HPF Urine Creatinine (0.1-20.0) mg/dL Urine Total Protein (5-11.8) mg/dL - Imaging and cardiology Chest x-ray: report reviewed, image reviewed (diffuse ARDS )
[2021-08-03 11:08] LABS: ABG Base Excess -9.4 mmol/L (-2.0-3.0); ABG HCO3 19.3 mmol/L (20.0-26.0); ABG Methemoglobin 0.8 % (0.0-1.5); ABG Oxygen Saturation 83.5 % (95.0-99.0); ABG PCO2 56.4 mm Hg; ABG PO2 54.1 mm Hg (80.0-90.0)
[2021-08-03 11:14] LABS: ABG PH 7.151 pH Units (7.350-7.450)
[2021-08-03] MEDS ORDERED: SODIUM BICARB 8.4% 50 MEQ/50 ML SYRINGE IV SCH (11:30)
[2021-08-03] MEDS: SODIUM BICARBONATE 150 MEQ in WATER FOR INJECTION (PF) 1,000 ML IV SCH (12:30)
[2021-08-03] MEDS: INSULIN LISPRO 100 UNIT/ML SUB-Q SCH ×2 (12:31→17:36)
[2021-08-03] MEDS: NORepinephrine/NS 8 MG-250 ML 8 MG/250 ML INFUS..BTL IV SCH ×2 (12:42→18:28)
[2021-08-03] MEDS ORDERED: VANCOMYCIN 1,750 MG in SODIUM CHLORIDE 0.9% 500 ML 500 ML IV SCH (13:00)
[2021-08-03] MEDS ORDERED: SODIUM CHLORIDE 0.9% 1000 ML IV SOLN ONE (13:51)
[2021-08-03] MEDS ORDERED: SODIUM CHLORIDE 0.9% 500 ML IVPB ONE (13:51)
--- NOTE | 2021-08-03 14:18 | Progress Note ---
Assessment and Plan 1. Acute kidney injury: RHINA in the setting of severe Covid-19 infection and sepsis. Suspect ATN. Renal US negative. Monitor renal function. Has aceves catheter. Creatinine level increasing now. Renal prognosis guarded. Avoid nephrotoxic agents. Meds dosage based on GFR. 2. FEN: Anion-gap metabolic acidosis, 2/2 RHINA, monitor. Monitor lytes and volume status. 3. Acute hypoxic resp failure, POA: 2/2 Covid-19 PNA. Test positive on 08/01. Currently intubated on vent. Followed by Pulmonary. 4. Covid-19 PNA, POA: Test positive for Covid-19. On Solumedrol and Tocilizumab. Monitor. 5. Sepsis, POA: 2/2 COVID-19 pneumonia + bacterial PNA. Trachea aspirate grew MRSA. Multiple Abx. Followed by ID. 6. Profound shock: Likely septic. On 4 pressors. 7. S/p PEA. 8. DM / Elevated bl glu: NPH and SSI. Monitor. Prognosis is poor. Ongoing GOC. Subjective: Patient was seen and examined at the bedside. Events overnight noted. Examination: General appearance: well-developed, appears stated age, obese, intubated, on vent HEENT: atraumatic Neck: trachea midline Respiratory: coarse breath sounds Heart: S1S2, regular, no murmur Abdomen: soft, obese, bowel sounds heard, NT Integumentary: LE stasis changes noted Neurologic: sedated Ext: trace LE edema : Aceves catheter Subjective Date of service: 08/03/21 Principal diagnosis: COVID-19 PNA Objective - Vital Signs Vital signs: Vital Signs - 12hr 08/03/21 08/03/21 08/03/21 03:00 03:40 04:36 Temperature 99.8 F H Pulse Rate 151 H Respiratory 27 H Rate Blood Pressure 156/71 O2 Sat by Pulse 100 80 L Oximetry 08/03/21 08/03/21 08/03/21 05:28 05:38 07:20 Temperature Pulse Rate 106 H 104 H Respiratory Rate Blood Pressure 107/49 107/49 O2 Sat by Pulse 77 L 89 Oximetry 08/03/21 12:28 Temperature Pulse Rate 133 H Respiratory Rate Blood Pressure 85/47 O2 Sat by Pulse 92 Oximetry - Lab 08/03/21 03:25 08/03/21 03:25 Most recent lab results ABG pH 7.151 pH Units (7.350-7.450) L* 08/03/21 10:45 ABG pCO2 56.4 mm Hg 08/03/21 10:45 ABG pO2 54.1 mm Hg (80.0-90.0) L 08/03/21 10:45 ABG HCO3 19.3 mmol/L (20.0-26.0) L 08/03/21 10:45 ABG O2 Saturation 83.5 % (95.0-99.0) L 08/03/21 10:45 Calcium 8.2 mg/dL (8.4-10.2) L 08/03/21 03:25 Magnesium 1.80 mg/dL (1.7-2.3) 08/03/21 03:25 Urine Creatinine 170.6 mg/dL (0.1-20.0) H 08/02/21 13:54 Urine Sodium 10 mmol/L 08/02/21 13:54 Urine Total Protein 92 mg/dL (5-11.8) H 08/02/21 13:54 Medications & Allergies - Medications Allergies/Adverse Reactions: Allergies aspirin [From Percodan] Allergy (Unverified 04/09/15 11:03) Unknown oxycodone HCl [From Percodan] Allergy (Verified 08/01/21 11:12) Unknown oxycodone terephthalate [From Percodan] Allergy (Verified 08/01/21 11:12) Unknown Penicillins Allergy (Verified 08/20/13 14:46) Unknown Home Medications: Home Medications Medication Instructions Recorded Confirmed Last Taken Type Ciprofloxacin HCl [Ciprofloxacin 500 mg PO BID #14 tablet 08/20/13 Unknown Rx TAB] Cyclobenzaprine [Flexeril] 10 mg PO TID PRN 08/20/13 08/20/13 Unknown History Fluconazole [Diflucan] 50 mg PO QDAY #3 tablet 08/20/13 Unknown Rx Insulin NPH/Regular [Novolin 70/30] 15 unit SQ BID #2 vial 08/20/13 Unknown Rx Naproxen [Naprosyn] 500 mg PO BID 08/20/13 08/20/13 Unknown History Nystatin [Nystop Powder] 0 gm TP QDAY #50 gm 08/20/13 Unknown Rx amLODIPine [Norvasc] 10 mg PO DAILY #60 tab 08/20/13 Unknown Rx traMADoL [Ultram] 50 mg PO Q4HR PRN 08/20/13 08/20/13 Unknown History Active Medications: Generic Name Dose Route Start Last Admin Trade Name Freq PRN Reason Stop Dose Admin Acetaminophen 650 mg 07/31/21 11:44 Acetaminophen 325 Mg Tab PO Q4H PRN Pain MILD(1-3)/Fever >100.5/PIERCE Albuterol 2.5 mg 07/31/21 11:44 Albuterol 2.5 Mg/3 Ml Nebu IH Q4HRT PRN Shortness Of Breath Lipase/Protease/Amylase 1 each 08/02/21 18:24 Lipase 10,500/Protease 25,000/Amylase 43,750 (Units) Dr Jain FEEDTUBE PRN PRN For Clogged Feeding Tube Ascorbic Acid 500 mg 07/31/21 22:00 08/03/21 09:20 Ascorbic Acid 500 Mg Tab PO Not Given BID TRISTEN Cholecalciferol 1,000 unit 08/01/21 10:00 08/03/21 09:20 Cholecalciferol (Vit D3) 400 Unit Tab PO Not Given QDAY TRISTEN Dextrose 0 ml 08/02/21 14:38 Dextrose 50% In Water (25gm) 50 Ml Syringe IV Q30MIN PRN Hypoglycemia Protocol Famotidine 20 mg 08/02/21 22:00 08/02/21 21:34 Famotidine 20 Mg/2 Ml Inj IV 20 mg HS TRISTEN Administration Fentanyl 50 mcg 08/01/21 11:52 08/03/21 10:26 Fentanyl 100 Mcg/2 Ml Inj IV 50 mcg Q10MIN PRN Administration ANALGESIA Heparin Sodium (Porcine) 4,500 unit 07/31/21 15:35 08/03/21 01:00 Heparin 10,000 Units/10 Ml Vial 40 unit/kg (4500 unit) 4,500 unit IV Administration Q6H PRN Anti-Xa Assay < 0.1 units/ml Hydrophilic Ointment 1 applic 07/31/21 15:23 Lip Therapy Vaseline TP Q2HR PRN Dry Lips Heparin Sodium/Sodium Chloride 25,000 unit in 500 mls @ 20 mls/hr 07/31/21 16:00 08/02/21 10:54 Heparin/ 0.45% Nacl-25,000 Unit/500 Ml IV 950 units/hr TITRATE TRISTEN 19 mls/hr Titration Protocol 1,000 UNITS/HR Propofol 1,000 mg in 100 mls @ 3.402 mls/hr 07/31/21 16:00 08/03/21 13:44 Diprivan 10 Mg/Ml IV 50 mcg/kg/min TITR TRISTEN 34.019 mls/hr Administration Protocol 5 MCG/KG/MIN Fentanyl Citrate 2,000 mcg in 100 mls @ 5.67 mls/hr 08/01/21 12:00 08/03/21 13:44 Fentanyl Drip Premix IV 4 mcg/kg/hr TITR TRISTEN 22.68 mls/hr Administration Protocol 1 MCG/KG/HR Vasopressin 20 unit/ Sodium 101 mls @ 9.09 mls/hr 08/02/21 23:00 08/03/21 08:23 Chloride IV 0.03 units/min TITR TRISTEN 9.09 mls/hr Administration Protocol 0.03 UNITS/MIN Epinephrine 8 mg/ Sodium 250 mls @ 3.75 mls/hr 08/02/21 23:00 08/03/21 11:16 Chloride IV 10 mcg/min TITR TRISTEN 18.75 mls/hr Administration Protocol 2 MCG/MIN Phenylephrine HCl 100 mg/ 100 mls @ 3 mls/hr 08/03/21 01:15 08/03/21 11:15 Sodium Chloride IV 400 mcg/min TITR TRISTEN 24 mls/hr Administration Protocol 50 MCG/MIN Amiodarone HCl 900 mg/ 500 mls @ 33.333 mls/hr 08/03/21 04:00 08/03/21 03:50 Dextrose IV 1 mg/min DIRECT TRISTEN 33.333 mls/hr Administration Protocol 1 MG/MIN Levofloxacin/Dextrose 750 mg in 150 mls @ 100 mls/hr 08/03/21 10:00 08/03/21 09:18 Levaquin 750mg/150ml IV 100 mls/hr Q48H TRISTEN Administration Protocol Sodium Bicarbonate 150 meq/ 1,150 mls @ 75 mls/hr 08/03/21 11:45 08/03/21 12:30 Sterile Water IV 75 mls/hr DIRECT TRISTEN Administration NORepinephrine/NS 8 MG-250 ML 8 mg in 250 mls @ 3.75 mls/hr 08/03/21 12:30 08/03/21 12:42 Norepinephrine/Ns 8 Mg-250 Ml (Double Conc) IV 2 mcg/min TITRATE TRISTEN 3.75 mls/hr Administration Protocol 2 MCG/MIN Insulin Human Lispro 0 unit 08/03/21 12:00 08/03/21 12:31 Insulin Lispro 100 Unit/Ml SUB-Q 6 unit Q6HR TRISTEN Administration Protocol Methylprednisolone Sodium Succinate 40 mg 07/31/21 14:00 08/03/21 06:23 Methylprednisolone Sod Succinate 40 Mg/1 Ml Inj IV 08/10/21 06:01 40 mg Q8HR TRISTEN Administration Multi-Ingred Cream/Lotion/Oil/Oint 1 applic 07/31/21 15:23 Mineral Oil/Petrolatum, White Ophth Oint 3.5 Gm OU Q4HR PRN Dry Eye(s) Ondansetron HCl 4 mg 07/31/21 11:44 Ondansetron 4 Mg/2 Ml Inj IV Q8H PRN Nausea And Vomiting Simple Syrup 30 ml 08/02/21 18:24 Simple Syrup 15 Ml FEEDTUBE PRN PRN Hypoglycemia Simple Syrup 15 ml 08/03/21 10:13 Simple Syrup 15 Ml FEEDTUBE PRN PRN Hypoglycemia Sodium Bicarbonate 325 mg 08/02/21 18:24 Sodium Bicarbonate 325 Mg Tab FEEDTUBE PRN PRN For Clogged Feeding Tube Sodium Bicarbonate 50 meq 08/03/21 11:30 08/03/21 11:23 Sodium Bicarb 8.4% 50 Meq/50 Ml Syringe IV 08/03/21 15:30 50 meq ONCE@1130 TRISTEN Administration Sodium Chloride 10 ml 07/31/21 22:00 08/03/21 09:22 Sodium Chloride 0.9% 10 Ml Flush Syringe IV 10 ml BID TRISTEN Administration Sodium Chloride 10 ml 07/31/21 11:44 Sodium Chloride 0.9% 10 Ml Flush Syringe IV PRN PRN LINE FLUSH Zinc Sulfate 220 mg 07/31/21 22:00 08/03/21 09:20 Zinc Sulfate 220 Mg Cap PO Not Given BID TRISTEN
[2021-08-03 14:26] LABS: ABG Base Excess -7.3 mmol/L (-2.0-3.0); ABG HCO3 20.7 mmol/L (20.0-26.0); ABG Methemoglobin 0.8 % (0.0-1.5); ABG Oxygen Saturation 79.4 % (95.0-99.0); ABG PCO2 57.1 mm Hg; ABG PO2 44.6 mm Hg (80.0-90.0)
[2021-08-03] MEDS ORDERED: MIDAZOLAM 2 MG/2 ML INJ IV PRN (14:29)
[2021-08-03 14:32] LABS: ABG PH 7.178 pH Units (7.350-7.450)
--- NOTE | 2021-08-03 14:36 | Progress Note ---
Assessment and Plan EKG 08/03/2021 shows afib w/ RVR 151. No acute ischemic changes Echo reviewed - EF 50-55%, RV mildly hypokinetic, mild AR, no evidence of , mild TR, RVSP 48mmHg. Continue Heparin drip for anticoagulation Initiate amio bolus and amio gtt for rate control. Stop diltiazem gtt Patient seen in conjunction with Dr. Marks who agrees with plan of care. Will continue to follow - Patient Problems (1) Acute hypoxemic respiratory failure Current Visit: Yes Status: Acute (2) Acute kidney injury (RHINA) with acute tubular necrosis (ATN) Current Visit: Yes Status: Acute (3) CHF (congestive heart failure) Current Visit: Yes Status: Acute Qualifiers: Heart failure chronicity: acute on chronic (4) NSTEMI (non-ST elevated myocardial infarction) Current Visit: Yes Status: Acute (5) Pneumonia Current Visit: Yes Status: Acute (6) Sepsis Current Visit: Yes Status: Acute (7) Suspected 2019 novel coronavirus infection Current Visit: Yes Status: Acute Subjective Date of service: 08/03/21 Principal diagnosis: COVID-19 PNA Interval history: CODE BLUE called on patient he was found to be having SVT prior to the PEA and has had multiple doses of adenosine. ACLS protocol was initiated. Patient had a dose of epinephrine with return of spontaneous circulation. Patient was then st arted on cardizem gtt. At time of assessment patient was found to be in Afib w/ RVR rate 140s-170s but previsouly pateint was trending 100s-110s Objective Vital Signs Temp Pulse Resp BP Pulse Ox 08/03/21 12:28 133 H 85/47 92 08/03/21 07:20 104 H 107/49 89 08/03/21 05:38 106 H 107/49 08/03/21 05:28 77 L 08/03/21 04:36 151 H 156/71 80 L 08/03/21 03:40 99.8 F H 08/03/21 03:00 27 H 100 08/03/21 00:00 99.7 F H 08/02/21 23:39 40 H 100 08/02/21 21:36 105 H 96/47 94 08/02/21 20:00 99.9 F H 08/02/21 19:39 40 H 100 08/02/21 15:48 75 95 08/02/21 15:39 40 H 100 - Physical Examination General: Other (intubated and sedated) HEENT: Positive: PERRL Neck: Positive: trachea midline Cardiac: Positive: irregularly irregular Lungs: Positive: Ventilated Respirations Neuro: Positive: Other (unabel to asess) Abdomen: Positive: Soft Skin: Negative: Rash, Suspicious Lesions, Ulceration Extremities: Present: upper extr. pulses, lower extr. pulses - Labs and Meds Cardiac Enzymes 08/03/21 Range/Units 03:25 AST 49 H (5-40) units/L CBC 08/03/21 Range/Units 03:25 WBC 21.7 H (4.5-11.0) K/mm3 RBC 3.54 L (3.65-5.03) M/mm3 Hgb 10.7 (10.1-14.3) gm/dl Hct 33.3 (30.3-42.9) % Plt Count 242 (140-440) K/mm3 Comprehensive Metabolic Panel 08/03/21 Range/Units 03:25 Sodium 143 (137-145) mmol/L Potassium 4.7 (3.6-5.0) mmol/L Chloride 108.5 H (98-107) mmol/L Carbon Dioxide 18 L (22-30) mmol/L BUN 77 H (7-17) mg/dL Creatinine 2.8 H (0.6-1.2) mg/dL Glucose 187 H (65-100) mg/dL Calcium 8.2 L (8.4-10.2) mg/dL AST 49 H (5-40) units/L ALT 20 (7-56) units/L Alkaline Phosphatase 70 (35-129) units/L Total Protein 5.6 L (6.3-8.2) g/dL Albumin 2.1 L (3.9-5) g/dL - Imaging and Cardiology EKG: report reviewed, image reviewed Echo: report reviewed - EKG Sinus rhythms and dysrhythmias: sinus tachycardia Ventricular dysrhythmias: ventricular premature com Chamber hypertrophy or enlargement: left ventricular hypertro - Allied health notes Allied health notes reviewed: RT
[2021-08-03] MEDS: MIDAZOLAM 100 MG in SODIUM CHLORIDE 0.9% 80 ML IV SCH (15:14)
--- NOTE | 2021-08-03 16:21 | Progress Note ---
Assessment and Plan Assessment and plan: 65 year-old unvaccinated female with Obesity Hypoventilation Syndrome, DM2, RA, Paroxysmal Atrial Fib not taking therapeutic anticoagulation, HTN, CHF admitted with bilateral pneumonia, NSTEMI, RHINA, and Sepsis, COVID 19 Neuro: Acute metabolic encephalopathy -Sedated with propofol and fentanyl -on hold d/t hypotension -started on versed -Avoid delirium -SAT/SBT if able -Titrate sedation for RASS goal 0 to -2 - PRN analgesic for POCT greater than 3 - Daily SAT and SBT per CCM - Maintenance of sleep-wake cycle, avoid delirium Cardio: s/o cardiac arrest 08/03, Afib with RVR, NSTEMI, Acute on Chronic CHF, h/o paroxsymal afib -Cardiology consulted, appreciate recommendations -08/03 EKG shows afib with RVR -cardiology alerted -Amio bolus with gtt intiated -CArdizem gtt turned off -Per cards: Echo reviewed - EF 50-55%, RV mildly hypokinetic, mild AR, no evidence of , mild TR, RVSP 48mmHg -BP monitoring via magdalena -Remains maxed on epinephrine, noraepinephrine, neosynephrine, vasopressin -proBNP 8486 - No diurectic in the setting of RHINA and hypotension Resp:Acute hypoxic respiratory failure, ARDs, COVID 19 -CXR shows PNA -COVID swab (+), 07/31 Tracheal aspirate MRSA -Intubated on OETT on 07/31 with 7.5 OETT @ 24 cm lips -AM vent setting: -see RT notes for titration -ABGs noted -Daily CXR and ABGs -Daily SBT and SAT trials as tolerated -VAP bundle addressed GI: NPO -NPO -Bicarb gtt with dextrose -BR -PPI -24 hours +3250ml : Acute kidney injury 2/2 vasomotor nephropathy in setting of sever covid 19 infection and sepsis, Anion gap metabolic acidosis -Nephrology consulted, appreciate recommendations -Renal US negative -Avoid nephrotoxic agents. -Renally dose meds -Strict I&O -Asher catheter -Bicarb gtt -one time order for albumin -Trend BMP ID: Sepsis, COVID 19 PNA, MRSA PNA -ID consulted, appreciate recommendations -per ID: Not a candidate for remdesivir due to renal failure -Extremely poor prognosis with a very high mortality, MRSA in sputum, not a candidate for Actemra as per hospital/system guidelines -Levaquin and vancomycin 08/03 -f/u culture data -MRSA in sputum 08/02 -Stress dose steroids -Contact/droplet precautions -Trend COVD 19 inflammatory markers -Monitor fever and temp curve Heme: Leukocytosis -Heparin gtt for anticoagulation given afib and covid pna -Trend CBC -Transfuse for hgb < 7 Endo: Hyperglycemia -SSI -Currently NPO -While critically ill target blood glucose of 140-180 -Avoid hypoglycemia The high probability of a clinically significant, sudden or life threatening deterioration of the [multiple] system(s) required my full and direct attention, intervention and personal management. The aggregate critical care time was [90] minutes. This time is in addition to time spent performing reported procedures but includes the following: [x] Data Review and interpretation [x] Patient assessment and monitoring of vital signs [x] Documentation [x] Medication orders and management Disposition Plan: icu Total Time Spent with Patient (Minutes): 90 History Interval history: This is a 65 years-old unvaccinated female with Obesity Hypoventilation Syndrome, DM2, RA, Paroxysmal Atrial Fib not taking therapeutic anticoagulation, HTN, CHF who presented to the ED due to hypoxia, SOB, and not feeling well for over week. Upon arrival to the ED, patient's SPO2 was in the low 80%, tachycardic, and tachypneic. She was initially placed on noninvasive positive pressure ventilation with no improvement, then later intubated due to acute hypoxemic respiratory failure. Additional workups showed bilateral pneumonia, NSTEMI, RHINA, and uncontrolled DM. Patient will be transfer to ICU when a bed is available for further management. 08/01/21- Patient is intubated, appears restless and anxious on propofol gtt, fentanyl gtt added for RASS 0 to -2. Patient remains leukocytosis, continue empiric ABx per ID. CT chest ordered to f/o on multifocal PNA. Nephro consulted for RHINA,, and insulin adjusted for hyperglycemia. Will continue to monitor renal function and adjust insulin accordingly for glycemic control. 08/02/21- Patient intubated and sedated max on propofol and fentanyl RASS -3 to -4. Patient COVID swab came back posititve and tracheal aspirate is positive MRSA, vanco added per sensitivity. Patient remains hyperglycemic, will start insulin gtt for tighter glycemic control. Nutritional consult for TF management. 08/03: s/p cardiac arrest overnight, Vasopressors now maxed, multiple IVP Bicarb given and started on Bicarb gtt, vent settings increased and now on 20 peep, 30 rate and 100% fio2, afib with rvr and started on amio, worsening renal function. Family updated and patient remains a full code until son arrival from [place] tomorrow morning at 0730. Wishes to visit mother around [phone] wh ich has been replayed to CN and SW as well as attending and CCM. Hospitalist Physical - Constitutional Vitals: Temp Pulse Resp BP Pulse Ox 99.8 F H 147 H 27 H 64/40 92 08/03/21 03:40 08/03/21 14:53 08/03/21 03:00 08/03/21 14:53 08/03/21 14:53 General appearance: Present: no acute distress, well-nourished, other (Intubated and sedated) - EENT Eyes: Present: PERRL ENT: dentition normal - Neck Neck: Present: normal ROM - Respiratory Respiratory effort: normal Respiratory: bilateral: diminished - Cardiovascular Rhythm: irregularly irregular Heart Sounds: Present: S1 & S2. Absent: systolic murmur, diastolic murmur - Extremities Extremities: no ischemia, pulses intact, pulses symmetrical, normal temperature, normal color Extremity abnormal: edema - Peripheral Assessment Generalized Edema Degree: 2+ Capillary Refill: < 3 seconds Skin Temperature: Warm Peripheral Pulses: within normal limits - Abdominal General gastrointestinal: soft, non-tender, non-distended, hypoactive bowel sounds - Integumentary Integumentary: Present: warm, dry - Psychiatric Psychiatric: other (sedated) - Neurologic Neurologic: other (sedated, intact cough/gag) - Allied Health Allied health notes reviewed: nursing, RT, social work HEART Score - HEART Score Troponin: Troponin T < 0.010 ng/mL (0.00-0.029) 08/02/21 03:49 Results - Labs CBC & Chem 7: 08/03/21 03:25 08/03/21 03:25 Labs: Laboratory Last Values WBC 21.7 K/mm3 (4.5-11.0) H 08/03/21 03:25 RBC 3.54 M/mm3 (3.65-5.03) L 08/03/21 03:25 Hgb 10.7 gm/dl (10.1-14.3) 08/03/21 03:25 Hct 33.3 % (30.3-42.9) 08/03/21 03:25 MCV 94 fl (79-97) 08/03/21 03:25 MCH 30 pg (28-32) 08/03/21 03:25 MCHC 32 % (30-34) 08/03/21 03:25 RDW 14.9 % (13.2-15.2) 08/03/21 03:25 Plt Count 242 K/mm3 (140-440) 08/03/21 03:25 Add Manual Diff Complete 08/01/21 05:44 Total Counted 100 08/01/21 05:44 Seg Neuts % (Manual) 88.0 % (40.0-70.0) H 08/01/21 05:44 Band Neutrophils % 4.0 % 08/01/21 05:44 Lymphocytes % (Manual) 6.0 % (13.4-35.0) L 08/01/21 05:44 Monocytes % (Manual) 1.0 % (0.0-7.3) 08/01/21 05:44 Metamyelocytes % 1.0 % 08/01/21 05:44 Nucleated RBC % 2.0 % (0.0-0.9) H 08/01/21 05:44 Seg Neutrophils # Man 14.0 K/mm3 (1.8-7.7) H 08/01/21 05:44 Band Neutrophils # 0.6 K/mm3 08/01/21 05:44 Lymphocytes # (Manual) 1.0 K/mm3 (1.2-5.4) L 08/01/21 05:44 Abs React Lymphs (Man) 0.0 K/mm3 08/01/21 05:44 Monocytes # (Manual) 0.2 K/mm3 (0.0-0.8) 08/01/21 05:44 Eosinophils # (Manual) 0.0 K/mm3 (0.0-0.4) 08/01/21 05:44 Basophils # (Manual) 0.0 K/mm3 (0.0-0.1) 08/01/21 05:44 Metamyelocytes # 0.2 K/mm3 08/01/21 05:44 Myelocytes # 0.0 K/mm3 08/01/21 05:44 Promyelocytes # 0.0 K/mm3 08/01/21 05:44 Blast Cells # 0.0 K/mm3 08/01/21 05:44 WBC Morphology Not Reportable 08/01/21 05:44 Hypersegmented Neuts Not Reportable 08/01/21 05:44 Hyposegmented Neuts Not Reportable 08/01/21 05:44 Hypogranular Neuts Not Reportable 08/01/21 05:44 Smudge Cells Not Reportable 08/01/21 05:44 Toxic Granulation Not Reportable 08/01/21 05:44 Toxic Vacuolation Not Reportable 08/01/21 05:44 Dohle Bodies Not Reportable 08/01/21 05:44 Pelger-Huet Anomaly Not Reportable 08/01/21 05:44 Prasad Rods Not Reportable 08/01/21 05:44 Platelet Estimate Consistent w auto 08/01/21 05:44 Clumped Platelets Not Reportable 08/01/21 05:44 Plt Clumps, EDTA Not Reportable 08/01/21 05:44 Large Platelets Not Reportable 08/01/21 05:44 Giant Platelets Not Reportable 08/01/21 05:44 Platelet Satelliting Not Reportable 08/01/21 05:44 Plt Morphology Comment Not Reportable 08/01/21 05:44 RBC Morphology Not Reportable 08/01/21 05:44 Dimorphic RBCs Not Reportable 08/01/21 05:44 Polychromasia Few 08/01/21 05:44 Hypochromasia Not Reportable 08/01/21 05:44 Poikilocytosis 1+ 08/01/21 05:44 Anisocytosis 1+ 08/01/21 05:44 Microcytosis Not Reportable 08/01/21 05:44 Macrocytosis Not Reportable 08/01/21 05:44 Spherocytes Not Reportable 08/01/21 05:44 Pappenheimer Bodies Not Reportable 08/01/21 05:44 Sickle Cells Not Reportable 08/01/21 05:44 Target Cells Not Reportable 08/01/21 05:44 Tear Drop Cells Not Reportable 08/01/21 05:44 Ovalocytes Not Reportable 08/01/21 05:44 Helmet Cells Not Reportable 08/01/21 05:44 [place] Bodies Not Reportable 08/01/21 05:44 [place] Rings Not Reportable 08/01/21 05:44 Matt Cells 1+ 08/01/21 05:44 Bite Cells Not Reportable 08/01/21 05:44 Crenated Cell Not Reportable 08/01/21 05:44 Elliptocytes Not Reportable 08/01/21 05:44 Acanthocytes (Spur) Not Reportable 08/01/21 05:44 Rouleaux Not Reportable 08/01/21 05:44 Hemoglobin C Crystals Not Reportable 08/01/21 05:44 Schistocytes Not Reportable 08/01/21 05:44 Malaria parasites Not Reportable 08/01/21 05:44 Bertrand Bodies Not Reportable 08/01/21 05:44 Hem Pathologist Commnt No 08/01/21 05:44 PT 18.5 Sec. (12.2-14.9) H 07/31/21 18:30 INR 1.39 (0.87-1.13) H 07/31/21 18:30 APTT 28.4 Sec. (24.2-36.6) 07/31/21 18:30 D-Dimer 2619.75 ng/mlDDU (0-234) H 07/31/21 09:46 Heparin Anti-Xa Level 0.34 U.I./ml (0.3-0.7) 08/02/21 Unknown ABG pH 7.178 pH Units (7.350-7.450) L* 08/03/21 13:43 POC ABG pCO2 54.7 mmHg (32.0-48.0) H 08/03/21 04:58 ABG pCO2 57.1 mm Hg 08/03/21 13:43 POC ABG pO2 44.5 mmHg (83-108) L 08/03/21 04:58 ABG pO2 44.6 mm Hg (80.0-90.0) L 08/03/21 13:43 POC ABG HCO3 16.7 08/03/21 04:58 ABG HCO3 20.7 mmol/L (20.0-26.0) 08/03/21 13:43 ABG O2 Saturation 79.4 % (95.0-99.0) L 08/03/21 13:43 ABG O2 Content 8.2 (0.0-44) 08/03/21 13:43 POC ABG Base Excess -12.9 08/03/21 04:58 ABG Base Excess -7.3 mmol/L (-2.0-3.0) L 08/03/21 13:43 ABG Hemoglobin 7.5 gm/dl (12.0-16.0) L 08/03/21 13:43 ABG Oxyhemoglobin 72.8 (94-98) L 08/03/21 04:58 ABG Carboxyhemoglobin 1.2 % (0.0-5.0) 08/03/21 13:43 ABG Methemoglobin 0.8 % (0.0-1.5) 08/03/21 13:43 ABG Sodium 141.5 mmol/L (136.0-145.0) 08/03/21 04:58 ABG Potassium 4.5 mmol/L (3.40-4.50) 08/03/21 04:58 ABG Chloride 110.0 mmol/L (98-107) H 08/03/21 04:58 ABG Glucose 216 mg/dL (65-95) H 08/03/21 04:58 Oxyhemoglobin 77.9 % (95.0-99.0) L 08/03/21 13:43 Carboxyhemoglobin 0.6 (0.5-1.5) 08/03/21 04:58 FiO2 10 % 08/03/21 13:43 FiO2 % 100 08/03/21 04:58 Sodium 143 mmol/L (137-145) 08/03/21 03:25 Potassium 4.7 mmol/L (3.6-5.0) 08/03/21 03:25 Chloride 108.5 mmol/L (98-107) H 08/03/21 03:25 Carbon Dioxide 18 mmol/L (22-30) L 08/03/21 03:25 Anion Gap 21 mmol/L 08/03/21 03:25 BUN 77 mg/dL (7-17) H 08/03/21 03:25 Creatinine 2.8 mg/dL (0.6-1.2) H 08/03/21 03:25 Estimated GFR 21 ml/min 08/03/21 03:25 BUN/Creatinine Ratio 28 % 08/03/21 03:25 Glucose 187 mg/dL (65-100) H 08/03/21 03:25 POC Glucose 255 mg/dL (70-105) H 08/03/21 12:31 Lactic Acid 1.90 mmol/L (0.7-2.0) 08/01/21 05:44 Calcium 8.2 mg/dL (8.4-10.2) L 08/03/21 03:25 Magnesium 1.80 mg/dL (1.7-2.3) 08/03/21 03:25 Ferritin 4832.0 ng/mL (10.0-200.0) H 07/31/21 11:09 Total Bilirubin 1.10 mg/dL (0.1-1.2) 08/03/21 03:25 AST 49 units/L (5-40) H 08/03/21 03:25 ALT 20 units/L (7-56) 08/03/21 03:25 Alkaline Phosphatase 70 units/L (35-129) 08/03/21 03:25 Lactate Dehydrogenase 1809 units/L (91-180) H 07/31/21 11:09 Troponin T < 0.010 ng/mL (0.00-0.029) 08/02/21 03:49 C-Reactive Protein 32.70 mg/dL (0.00-1.30) H 07/31/21 11:09 NT-Pro-B Natriuret Pep 8486 pg/mL (0-900) H 07/31/21 09:46 Total Protein 5.6 g/dL (6.3-8.2) L 08/03/21 03:25 Albumin 2.1 g/dL (3.9-5) L 08/03/21 03:25 Albumin/Globulin Ratio 0.6 % 08/03/21 03:25 Triglycerides 235 mg/dL (2-149) H 07/31/21 09:27 Cholesterol 125 mg/dL (50-199) 07/31/21 09:27 LDL Cholesterol Direct 50 mg/dL (50-130) 07/31/21 09:27 HDL Cholesterol 29 mg/dL (40-59) L 07/31/21 09:27 Cholesterol/HDL Ratio 4.31 % 07/31/21 09:27 Procalcitonin 2.12 ng/mL (<0.15) 07/31/21 11:09 Arterial Blood Glucose 216 mg/dL (65-95) H 08/03/21 04:58 Urine Color Tori (Yellow) 08/02/21 13:54 Urine Turbidity Cloudy (Clear) 08/02/21 13:54 Urine pH 5.0 (5.0-7.0) 08/02/21 13:54 Ur Specific [place] 1.017 (1.003-1.030) 08/02/21 13:54 Urine Protein 30 mg/dl mg/dL (Negative) 08/02/21 13:54 Urine Glucose (UA) 50 mg/dL (Negative) 08/02/21 13:54 Urine Ketones Neg mg/dL (Negative) 08/02/21 13:54 Urine Blood Mod (Negative) 08/02/21 13:54 Urine Nitrite Neg (Negative) 08/02/21 13:54 Urine Bilirubin Neg (Negative) 08/02/21 13:54 Urine Urobilinogen 4.0 mg/dL (<2.0) 08/02/21 13:54 Ur Leukocyte Esterase Neg (Negative) 08/02/21 13:54 Urine WBC (Auto) 12.0 /HPF (0.0-6.0) H 08/02/21 13:54 Urine RBC (Auto) 66.0 /HPF (0.0-6.0) 08/02/21 13:54 U Epithel Cells (Auto) 2.0 /HPF (0-13.0) 08/02/21 13:54 Urine Mucus Few /HPF 08/02/21 13:54 Urine Creatinine 170.6 mg/dL (0.1-20.0) H 08/02/21 13:54 Protein/Creatinin Ratio 0.54 08/02/21 13:54 Urine Sodium 10 mmol/L 08/02/21 13:54 Urine Total Protein 92 mg/dL (5-11.8) H 08/02/21 13:54 Coronavirus (PCR) Positive (Negative) A 08/01/21 09:00 Blood Type O POSITIVE 07/31/21 18:30 Antibody Screen Negative 07/31/21 18:30 Microbiology: Microbiology 07/31/21 11:09 Peripheral/Venous Blood Culture - Preliminary NO GROWTH AFTER 72 HOURS 07/31/21 11:09 Peripheral/Venous Blood Culture - Preliminary NO GROWTH AFTER 72 HOURS 08/02/21 13:54 Urine,Clean Catch Urine Culture - Preliminary NO GROWTH AFTER 24 HOURS Asher/IV: Voiding Method Indwelling Catheter Active Medications - Current Medications Current Medications: Generic Name Dose Route Start Last Admin Trade Name Freq PRN Reason Stop Dose Admin Acetaminophen 650 mg 07/31/21 11:44 Acetaminophen 325 Mg Tab PO Q4H PRN Pain MILD(1-3)/Fever >100.5/PIERCE Albuterol 2.5 mg 07/31/21 11:44 Albuterol 2.5 Mg/3 Ml Nebu IH Q4HRT PRN Shortness Of Breath Lipase/Protease/Amylase 1 each 08/02/21 18:24 Lipase 10,500/Protease 25,000/Amylase 43,750 (Units) Dr Jain FEEDTUBE PRN PRN For Clogged Feeding Tube Ascorbic Acid 500 mg 07/31/21 22:00 08/03/21 09:20 Ascorbic Acid 500 Mg Tab PO Not Given BID TRISTEN Cholecalciferol 1,000 unit 08/01/21 10:00 08/03/21 09:20 Cholecalciferol (Vit D3) 400 Unit Tab PO Not Given QDAY TRISTEN Dextrose 0 ml 08/02/21 14:38 Dextrose 50% In Water (25gm) 50 Ml Syringe IV Q30MIN PRN Hypoglycemia Protocol Famotidine 20 mg 08/02/21 22:00 08/02/21 21:34 Famotidine 20 Mg/2 Ml Inj IV 20 mg HS TRISTEN Administration Fentanyl 50 mcg 08/01/21 11:52 08/03/21 10:26 Fentanyl 100 Mcg/2 Ml Inj IV 50 mcg Q10MIN PRN Administration ANALGESIA Heparin Sodium (Porcine) 4,500 unit 07/31/21 15:35 08/03/21 01:00 Heparin 10,000 Units/10 Ml Vial 40 unit/kg (4500 unit) 4,500 unit IV Administration Q6H PRN Anti-Xa Assay < 0.1 units/ml Hydrophilic Ointment 1 applic 07/31/21 15:23 Lip Therapy Vaseline TP Q2HR PRN Dry Lips Heparin Sodium/Sodium Chloride 25,000 unit in 500 mls @ 20 mls/hr 07/31/21 16:00 08/02/21 10:54 Heparin/ 0.45% Nacl-25,000 Unit/500 Ml IV 950 units/hr TITRATE TRISTEN 19 mls/hr Titration Protocol 1,000 UNITS/HR Propofol 1,000 mg in 100 mls @ 3.402 mls/hr 07/31/21 16:00 08/03/21 13:44 Diprivan 10 Mg/Ml IV 50 mcg/kg/min TITR TRISTEN 34.019 mls/hr Administration Protocol 5 MCG/KG/MIN Fentanyl Citrate 2,000 mcg in 100 mls @ 5.67 mls/hr 08/01/21 12:00 08/03/21 13:44 Fentanyl Drip Premix IV 4 mcg/kg/hr TITR TRISTEN 22.68 mls/hr Administration Protocol 1 MCG/KG/HR Vasopressin 20 unit/ Sodium 101 mls @ 9.09 mls/hr 08/02/21 23:00 08/03/21 08:23 Chloride IV 0.03 units/min TITR TRISTEN 9.09 mls/hr Administration Protocol 0.03 UNITS/MIN Epinephrine 8 mg/ Sodium 250 mls @ 3.75 mls/hr 08/02/21 23:00 08/03/21 11:16 Chloride IV 10 mcg/min TITR TRISTEN 18.75 mls/hr Administration Protocol 2 MCG/MIN Phenylephrine HCl 100 mg/ 100 mls @ 3 mls/hr 08/03/21 01:15 08/03/21 15:25 Sodium Chloride IV 400 mcg/min TITR TRISTEN 24 mls/hr Administration Protocol 50 MCG/MIN Amiodarone HCl 900 mg/ 500 mls @ 33.333 mls/hr 08/03/21 04:00 08/03/21 03:50 Dextrose IV 1 mg/min DIRECT TRISTEN 33.333 mls/hr Administration Protocol 1 MG/MIN Levofloxacin/Dextrose 750 mg in 150 mls @ 100 mls/hr 08/03/21 10:00 08/03/21 09:18 Levaquin 750mg/150ml IV 100 mls/hr Q48H TRISTEN Administration Protocol Sodium Bicarbonate 150 meq/ 1,150 mls @ 75 mls/hr 08/03/21 11:45 08/03/21 12:30 Sterile Water IV 75 mls/hr DIRECT TRISTEN Administration NORepinephrine/NS 8 MG-250 ML 8 mg in 250 mls @ 3.75 mls/hr 08/03/21 12:30 08/03/21 12:42 Norepinephrine/Ns 8 Mg-250 Ml (Double Conc) IV 2 mcg/min TITRATE TRISTEN 3.75 mls/hr Administration Protocol 2 MCG/MIN Midazolam HCl 100 mg/ Sodium 100 mls @ 1 mls/hr 08/03/21 15:00 08/03/21 15:14 Chloride IV 1 mg/hr TITR TRISTEN 1 mls/hr Administration Protocol 1 MG/HR Insulin Human Lispro 0 unit 08/03/21 12:00 08/03/21 12:31 Insulin Lispro 100 Unit/Ml SUB-Q 6 unit Q6HR TRISTEN Administration Protocol Methylprednisolone Sodium Succinate 40 mg 07/31/21 14:00 08/03/21 14:35 Methylprednisolone Sod Succinate 40 Mg/1 Ml Inj IV 08/10/21 06:01 40 mg Q8HR TRISTEN Administration Midazolam HCl 2 mg 08/03/21 14:29 Midazolam 2 Mg/2 Ml Inj IV Q10MIN PRN Sedation Multi-Ingred Cream/Lotion/Oil/Oint 1 applic 07/31/21 15:23 Mineral Oil/Petrolatum, White Ophth Oint 3.5 Gm OU Q4HR PRN Dry Eye(s) Ondansetron HCl 4 mg 07/31/21 11:44 Ondansetron 4 Mg/2 Ml Inj IV Q8H PRN Nausea And Vomiting Simple Syrup 30 ml 08/02/21 18:24 Simple Syrup 15 Ml FEEDTUBE PRN PRN Hypoglycemia Simple Syrup 15 ml 08/03/21 10:13 Simple Syrup 15 Ml FEEDTUBE PRN PRN Hypoglycemia Sodium Bicarbonate 325 mg 08/02/21 18:24 Sodium Bicarbonate 325 Mg Tab FEEDTUBE PRN PRN For Clogged Feeding Tube Sodium Chloride 10 ml 07/31/21 22:00 08/03/21 09:22 Sodium Chloride 0.9% 10 Ml Flush Syringe IV 10 ml BID TRISTEN Administration Sodium Chloride 10 ml 07/31/21 11:44 Sodium Chloride 0.9% 10 Ml Flush Syringe IV PRN PRN LINE FLUSH Zinc Sulfate 220 mg 07/31/21 22:00 08/03/21 09:20 Zinc Sulfate 220 Mg Cap PO Not Given BID [facility] Nutrition/Malnutrition Assess - Dietary Evaluation Nutrition/Malnutrition Findings: Nutrition Notes Start: 08/01/21 12:02 Freq: Status: Active Protocol: Document 08/03/21 09:57 GB (Rec: 08/03/21 10:13 GB [id number]) Nutrition Notes Initial or Follow up Reassessment Current Diagnosis Acute Kidney Injury,Diabetes, Sepsis,Hypertension,Heart Failure Other Pertinent Diagnosis Pneu, r/o COVID-19, NSTEMI, afib, RA Current Diet NPO - TF Labs/Tests 08/03: BUN 77, creatinine 2.8, glucose 187, Ca 8.2, AST 49 Pertinent Medications Propofol at 34.019ml/hr ( provides 898 kcal),Cardizen/D5 5ml/hr (20kcal), Epinepherone 8/NaCl, Fentanyl Citrate, Heparin Na/NaCl, Lactated Ringers 999ml/hr (bolus), Levofloxacin/D5 100ml/hr ( 408kcal), Vasopressin/NaCl Total Kcal provided by meds: 1326kcal Height 6 ft Weight 124.647 kg [place] Body Weight (kg) 72.72 BMI 37.3 Weight change and time frame 07/31: 113.398kg 08/02: 124.647kg Increase of 11.249kg for +9.9% gain r/t increase of IV fluids Subjective/Other Information MD notes 08/03: event Code Blue, resuscitated BM: hypoactive, no BM Skin: lower anterior abdomen = red TF: hold TF for 48 hrs r/t high IV fluid, kcal from meds 1326kcal, elevated renal labs Percent of energy/protein needs met: kcal: about 76% or greater from meds. Fluids 100% or greater. Burn Absent Trauma Absent GI Symptoms Constipation Difficulty In Swallowing Food Allergy No Skin Integrity/Comment Wound on Abdomen Current % PO Other Minimum of two criteria No #1 Nutrition Diagnosis Inadequate oral intake Comments: 08/03: Vented, sedated, event of code blue resuscitated, hold TF, MEDs provide 1326kcal Etiology [facility] ventilation As Evidenced by Signs and Symptoms pt NPO Diagnosis Progress(for reassessment Continues documentation) Is patient on ventilator? Yes Is Patient Ambulatory and/or Out of Bed No REE-([facility]-confined to bed) 2294.820 Kcal/Kg value to use for calculation 15 Approximate Energy Requirements Using 1870 kcal/Kg Calculation Used for Recommendations Kcal/kg Additional Notes Pro needs 0.6-0.8g/kg @ 124k-100g (r/t not on dialysis, elevated renal labs) Fluid needs 1ml/kcal Nutrition Intervention Change Diet Order: Advance diet when medically feasible Nutrition Support: Glucerna 1.2 (hold at this time r/t recent event, meds providing kcal, high IV fluids ) When feasible start at 10ml/hr , increase 10ml/8 to goal of 50ml/hr. Flush 25ml/4hr Kcal 1,440 Protein (gm) 72 Fat (gm) 72 Fluid (mL) 966 Add Supplement/Snack (indicate name/kcal n/a /protein ) Goal #1 Extubation w/diet advancement clear to renal Goal #2 TF started by f/u Glucerna 1.2 @ 50ml/hr goal (start rate 10ml/hr) Follow-Up By: 08/05/21 Additional Comments F/U: TF started, vent status, renal labs
--- NOTE | 2021-08-03 16:45 | Event Note ---
Date: 08/03/21 Patient seen and examined. Critically ill Remains on 4 vasopressors, orally intubated. PEEP increased on 20, lung compliance still acceptable. Increased bicarb infusion to 100ml/hour, bolus of albumin given. ABG ordered for the morning. Continue all supportive care for now. Antibiotics per ID Discussed with HEMMER LOCKSTITCH, respiratory and nursing staff. Discussed with clinical pharmacist cc time 20 minutes
[2021-08-03] MEDS ORDERED: ALBUMIN HUMAN 25% (25 GM/100 ML) INJ IV ONE (17:30)
[2021-08-03] MEDS: FAMOTIDINE 20 MG/2 ML INJ IV SCH (21:51)
[2021-08-04] MEDS: NORepinephrine/NS 8 MG-250 ML 8 MG/250 ML INFUS..BTL IV SCH ×4 (00:40→10:29)
[2021-08-04] MEDS: AMIODARONE 900 MG in DEXTROSE 5% IN WATER 482 ML IV SCH (00:40)
[2021-08-04] MEDS: INSULIN LISPRO 100 UNIT/ML SUB-Q SCH ×2 (00:54→05:37)
[2021-08-04] MEDS: PHENYLEPHRINE 100 MG in SODIUM CHLORIDE 0.9% 90 ML IV SCH ×2 (01:55→06:02)
[2021-08-04] MEDS: MIDAZOLAM 100 MG in SODIUM CHLORIDE 0.9% 80 ML IV SCH (03:05)
--- NOTE | 2021-08-04 04:41 | XRay Report ---
CHEST 1 VIEW 08/04/2021 3:14 AM INDICATION / CLINICAL INFORMATION: follow up respiratory failure. COMPARISON: 08/03/2021 FINDINGS: SUPPORT DEVICES: Interval placement of a right IJ central venous catheter with the tip at the right b rachiocephalic. Unchanged positioning of enteric and endotracheal tubes. HEART / MEDIASTINUM: No significant abnormality. LUNGS / PLEURA: Redemonstrated multifocal airspace opacities. No pneumothorax. ADDITIONAL FINDINGS: Interval development of subcutaneous emphysema in the neck. IMPRESSION: 1. Interval placement of a right IJ central venous catheter. No pneumothorax. Interval development of subcutaneous emphysema in the bilateral lower neck. No significant change in multifocal airspace opa cities. Signer Name: Remi Ernst DO Signed: 08/04/2021 4:36 AM Workstation Name: [id number]
[2021-08-04] MEDS: fentaNYL DRIP Premix 2,000 MCG/100 ML BAG IV SCH (04:48)
[2021-08-04 05:07] LABS: Hematocrit 30.6 % (30.3-42.9); Mean Corpuscular HGB Conc 33 % (30-34); Mean Corpuscular Volume 92 fl (79-97); Platelet Count 215 K/mm3 (140-440); Red Blood Count 3.32 M/mm3 (3.65-5.03); Red Cell Distribution Width 15.3 % (13.2-15.2)
[2021-08-04] MEDS: methylPREDNISolone Sod Succinate 40 MG/1 ML INJ IV SCH (05:21)
[2021-08-04] MEDS: SODIUM BICARBONATE 150 MEQ in WATER FOR INJECTION (PF) 1,000 ML IV SCH (05:21)
[2021-08-04] MEDS: VASOPRESSIN 20 UNIT in SODIUM CHLORIDE 0.9% 100 ML IV SCH (05:21)
[2021-08-04] MEDS: HEPARIN/ 0.45% NACL DRIP 25,000 UNIT/500 ML BAG IV SCH (05:28)
[2021-08-04 05:34] LABS: Albumin 2.2 g/dL (3.9-5); Calcium 7.5 mg/dL (8.4-10.2)
--- NOTE | 2021-08-04 08:19 | Progress Note ---
Assessment and Plan 1. Acute kidney injury: RHINA in the setting of severe Covid-19 infection and sepsis. Suspect ATN. Renal US negative. Monitor renal function. Has aceves catheter. Creatinine level increasing. Renal prognosis guarded. Avoid nephrotoxic agents. Meds dosage based on GFR. Not a candidate for hemodialysis due to profound shock. 2. FEN: Anion-gap metabolic acidosis, 2/2 RHINA, monitor. Bicarb drip. Monitor lytes and volume status. 3. Acute hypoxic resp failure, POA: 2/ Covid-19 PNA. Test positive on 08/01. Currently intubated on vent. Followed by Pulmonary. 4. Covid-19 PNA, POA: Test positive for Covid-19. On Solumedrol. S/p Tocilizumab. Monitor. 5. Sepsis, POA: 2/ COVID-19 pneumonia + bacterial PNA. Trachea aspirate grew MRSA. Multiple Abx. Followed by ID. 6. Profound shock: Likely septic. On 4 pressors. 7. S/p PEA. 8. DM / Elevated bl glu: NPH and SSI. Monitor. 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 Prognosis is poor. Ongoing GOC. Subjective: Patient was seen and examined at the bedside. Examination: General appearance: well-developed, appears stated age, obese, intubated, on vent HEENT: atraumatic Neck: trachea midline Respiratory: coarse breath sounds Heart: S1S2, regular, no murmur Abdomen: soft, obese, bowel sounds heard, NT Integumentary: LE stasis changes noted Neurologic: sedated Ext: trace LE edema : Aceves catheter Subjective Date of service: 08/04/21 Principal diagnosis: COVID-19 PNA Objective - Vital Signs Vital signs: Vital Signs - 12hr 08/03/21 08/03/21 08/03/21 20:21 20:31 20:36 Temperature Pulse Rate 120 H 123 H 126 H Respiratory 27 H 20 Rate Blood Pressure 79/46 79/46 109/58 O2 Sat by Pulse 98 98 98 Oximetry 08/03/21 08/03/21 08/03/21 20:41 20:51 21:01 Temperature Pulse Rate 120 H 128 H 137 H Respiratory 22 23 22 Rate Blood Pressure 79/46 O2 Sat by Pulse 97 98 98 Oximetry 08/03/21 08/03/21 08/03/21 21:11 21:21 21:31 Temperature Pulse Rate 123 H 137 H 127 H Respiratory 24 22 20 Rate Blood Pressure O2 Sat by Pulse 98 98 98 Oximetry 08/03/21 08/03/21 08/03/21 21:41 21:51 22:01 Temperature Pulse Rate 134 H 125 H 120 H Respiratory 17 20 22 Rate Blood Pressure O2 Sat by Pulse 98 98 98 Oximetry 08/03/21 08/03/21 08/03/21 22:11 22:21 22:25 Temperature Pulse Rate 123 H 148 H 135 H Respiratory 20 21 24 Rate Blood Pressure O2 Sat by Pulse 98 98 99 Oximetry 08/03/21 08/03/21 08/03/21 22:31 22:41 22:51 Temperature Pulse Rate 131 H 133 H 137 H Respiratory 24 24 30 H Rate Blood Pressure O2 Sat by Pulse 97 98 98 Oximetry 08/03/21 08/03/21 08/03/21 23:01 23:11 23:20 Temperature Pulse Rate 129 H 136 H 137 H Respiratory 30 H 23 26 H Rate Blood Pressure O2 Sat by Pulse 99 97 98 Oximetry 08/03/21 08/03/21 08/03/21 23:31 23:41 23:51 Temperature Pulse Rate 126 H 129 H 124 H Respiratory 29 H 22 23 Rate Blood Pressure O2 Sat by Pulse 98 97 97 Oximetry 08/04/21 08/04/21 08/04/21 00:00 00:01 00:11 Temperature 100.9 F H Pulse Rate 129 H 126 H Respiratory 32 H 30 H 30 H Rate Blood Pressure O2 Sat by Pulse 88 98 97 Oximetry 08/04/21 08/04/21 08/04/21 00:21 00:31 00:41 Temperature Pulse Rate 129 H 119 H 123 H Respiratory 24 30 H 22 Rate Blood Pressure O2 Sat by Pulse 96 97 98 Oximetry 08/04/21 08/04/21 08/04/21 00:51 01:01 01:11 Temperature Pulse Rate 119 H 128 H 125 H Respiratory 24 30 H 26 H Rate Blood Pressure O2 Sat by Pulse 98 98 97 Oximetry 08/04/21 08/04/21 08/04/21 01:21 01:31 01:41 Temperature Pulse Rate 129 H 131 H 129 H Respiratory 29 H 30 H 26 H Rate Blood Pressure O2 Sat by Pulse 98 96 97 Oximetry 08/04/21 08/04/21 08/04/21 01:51 02:01 02:11 Temperature Pulse Rate 122 H 126 H 127 H Respiratory 30 H 30 H 30 H Rate Blood Pressure O2 Sat by Pulse 97 97 93 Oximetry 08/04/21 08/04/21 08/04/21 02:21 02:31 02:41 Temperature Pulse Rate 127 H 129 H 133 H Respiratory 21 19 23 Rate Blood Pressure O2 Sat by Pulse 95 95 93 Oximetry 08/04/21 08/04/21 08/04/21 02:51 03:01 03:11 Temperature Pulse Rate 121 H 122 H 120 H Respiratory 28 H 23 23 Rate Blood Pressure O2 Sat by Pulse 96 95 95 Oximetry 08/04/21 08/04/21 08/04/21 03:21 03:31 03:41 Temperature Pulse Rate 119 H 132 H 117 H Respiratory 25 H 23 30 H Rate Blood Pressure O2 Sat by Pulse 96 94 94 Oximetry 08/04/21 08/04/21 08/04/21 03:51 04:00 04:01 Temperature 101.3 F H Pulse Rate 122 H 129 H Respiratory 25 H 32 H 27 H Rate Blood Pressure O2 Sat by Pulse 92 88 93 Oximetry 08/04/21 08/04/21 08/04/21 04:11 04:21 04:30 Temperature Pulse Rate 122 H 130 H 122 H Respiratory 29 H 20 Rate Blood Pressure 108/60 O2 Sat by Pulse 92 93 94 Oximetry 08/04/21 08/04/21 08/04/21 04:31 04:41 04:51 Temperature Pulse Rate 128 H 116 H 115 H Respiratory 29 H 26 H 27 H Rate Blood Pressure O2 Sat by Pulse 93 94 95 Oximetry 08/04/21 08/04/21 08/04/21 05:01 05:11 05:20 Temperature Pulse Rate 120 H 122 H 119 H Respiratory 29 H 30 H 30 H Rate Blood Pressure O2 Sat by Pulse 97 97 96 Oximetry 08/04/21 08/04/21 08/04/21 05:30 05:40 05:50 Temperature Pulse Rate 112 H 127 H 128 H Respiratory 30 H 27 H 30 H Rate Blood Pressure 79/46 O2 Sat by Pulse 96 94 98 Oximetry 08/04/21 06:00 Temperature Pulse Rate 128 H Respiratory 30 H Rate Blood Pressure 79/46 O2 Sat by Pulse 96 Oximetry - Lab 08/04/21 04:20 08/04/21 04:20 Most recent lab results ABG pH 7.178 pH Units (7.350-7.450) L* 08/03/21 13:43 ABG pCO2 57.1 mm Hg 08/03/21 13:43 ABG pO2 44.6 mm Hg (80.0-90.0) L 08/03/21 13:43 ABG HCO3 20.7 mmol/L (20.0-26.0) 08/03/21 13:43 ABG O2 Saturation 79.4 % (95.0-99.0) L 08/03/21 13:43 Calcium 7.5 mg/dL (8.4-10.2) L 08/04/21 04:20 Phosphorus 6.30 mg/dL (2.5-4.5) H 08/04/21 04:20 Magnesium 1.80 mg/dL (1.7-2.3) 08/04/21 04:20 Urine Creatinine 170.6 mg/dL (0.1-20.0) H 08/02/21 13:54 Urine Sodium 10 mmol/L 08/02/21 13:54 Urine Total Protein 92 mg/dL (5-11.8) H 08/02/21 13:54 Medications & Allergies - Medications Allergies/Adverse Reactions: Allergies aspirin [From Percodan] Allergy (Unverified 04/09/15 11:03) Unknown oxycodone HCl [From Percodan] Allergy (Verified 08/01/21 11:12) Unknown oxycodone terephthalate [From Percodan] Allergy (Verified 08/01/21 11:12) Unknown Penicillins Allergy (Verified 08/20/13 14:46) Unknown Home Medications: Home Medications Medication Instructions Recorded Confirmed Last Taken Type Ciprofloxacin HCl [Ciprofloxacin 500 mg PO BID #14 tablet 08/20/13 Unknown Rx TAB] Cyclobenzaprine [Flexeril] 10 mg PO TID PRN 08/20/13 08/20/13 Unknown History Fluconazole [Diflucan] 50 mg PO QDAY #3 tablet 08/20/13 Unknown Rx Insulin NPH/Regular [Novolin 70/30] 15 unit SQ BID #2 vial 08/20/13 Unknown Rx Naproxen [Naprosyn] 500 mg PO BID 08/20/13 08/20/13 Unknown History Nystatin [Nystop Powder] 0 gm TP QDAY #50 gm 08/20/13 Unknown Rx amLODIPine [Norvasc] 10 mg PO DAILY #60 tab 08/20/13 Unknown Rx traMADoL [Ultram] 50 mg PO Q4HR PRN 08/20/13 08/20/13 Unknown History Active Medications: Generic Name Dose Route Start Last Admin Trade Name Freq PRN Reason Stop Dose Admin Acetaminophen 650 mg 07/31/21 11:44 Acetaminophen 325 Mg Tab PO Q4H PRN Pain MILD(1-3)/Fever >100.5/PIERCE Albuterol 2.5 mg 07/31/21 11:44 Albuterol 2.5 Mg/3 Ml Nebu IH Q4HRT PRN Shortness Of Breath Lipase/Protease/Amylase 1 each 08/02/21 18:24 Lipase 10,500/Protease 25,000/Amylase 43,750 (Units) Dr Jain FEEDTUBE PRN PRN For Clogged Feeding Tube Ascorbic Acid 500 mg 07/31/21 22:00 08/03/21 21:52 Ascorbic Acid 500 Mg Tab PO 500 mg BID TRISTEN Administration Cholecalciferol 1,000 unit 08/01/21 10:00 08/03/21 09:20 Cholecalciferol (Vit D3) 400 Unit Tab PO Not Given QDAY TRISTEN Dextrose 0 ml 08/02/21 14:38 Dextrose 50% In Water (25gm) 50 Ml Syringe IV Q30MIN PRN Hypoglycemia Protocol Famotidine 20 mg 08/02/21 22:00 08/03/21 21:51 Famotidine 20 Mg/2 Ml Inj IV 20 mg HS TRISTEN Administration Fentanyl 50 mcg 08/01/21 11:52 08/03/21 16:03 Fentanyl 100 Mcg/2 Ml Inj IV 50 mcg Q10MIN PRN Administration ANALGESIA Heparin Sodium (Porcine) 4,500 unit 07/31/21 15:35 08/03/21 01:00 Heparin 10,000 Units/10 Ml Vial 40 unit/kg (4500 unit) 4,500 unit IV Administration Q6H PRN Anti-Xa Assay < 0.1 units/ml Hydrophilic Ointment 1 applic 07/31/21 15:23 Lip Therapy Vaseline TP Q2HR PRN Dry Lips Heparin Sodium/Sodium Chloride 25,000 unit in 500 mls @ 20 mls/hr 07/31/21 16:00 08/04/21 05:28 Heparin/ 0.45% Nacl-25,000 Unit/500 Ml IV 950 units/hr TITRATE TRISTEN 19 mls/hr Administration Protocol 1,000 UNITS/HR Propofol 1,000 mg in 100 mls @ 3.402 mls/hr 07/31/21 16:00 08/03/21 16:41 Diprivan 10 Mg/Ml IV Infused TITR TRISTEN Titration Protocol 5 MCG/KG/MIN Fentanyl Citrate 2,000 mcg in 100 mls @ 5.67 mls/hr 08/01/21 12:00 08/04/21 07:00 Fentanyl Drip Premix IV 4 mcg/kg/hr TITR TRISTEN 22.68 mls/hr Titration Protocol 1 MCG/KG/HR Vasopressin 20 unit/ Sodium 101 mls @ 9.09 mls/hr 08/02/21 23:00 08/04/21 05:21 Chloride IV 0.03 units/min TITR TRISTEN 9.09 mls/hr Administration Protocol 0.03 UNITS/MIN Epinephrine 8 mg/ Sodium 250 mls @ 3.75 mls/hr 08/02/21 23:00 08/04/21 07:23 Chloride IV 4 mcg/min TITR TRISTEN 7.5 mls/hr Titration Protocol 2 MCG/MIN Phenylephrine HCl 100 mg/ 100 mls @ 3 mls/hr 08/03/21 01:15 08/04/21 07:24 Sodium Chloride IV 300 mcg/min TITR TRISTEN 18 mls/hr Titration Protocol 50 MCG/MIN Amiodarone HCl 900 mg/ 500 mls @ 33.333 mls/hr 08/03/21 04:00 08/04/21 00:40 Dextrose IV 1 mg/min DIRECT TRISTEN 33.333 mls/hr Administration Protocol 1 MG/MIN Levofloxacin/Dextrose 750 mg in 150 mls @ 100 mls/hr 08/03/21 10:00 08/03/21 10:48 Levaquin 750mg/150ml IV Infused Q48H TRISTEN Infusion Protocol Sodium Bicarbonate 150 meq/ 1,150 mls @ 100 mls/hr 08/03/21 11:45 08/04/21 05:21 Sterile Water IV 75 mls/hr DIRECT TRISTEN Administration NORepinephrine/NS 8 MG-250 ML 8 mg in 250 mls @ 3.75 mls/hr 08/03/21 12:30 08/04/21 06:02 Norepinephrine/Ns 8 Mg-250 Ml (Double Conc) IV 30 mcg/min TITRATE TRISTEN 56.25 mls/hr Administration Protocol 2 MCG/MIN Midazolam HCl 100 mg/ Sodium 100 mls @ 1 mls/hr 08/03/21 15:00 08/04/21 03:05 Chloride IV 4 mg/hr TITR TRISTEN 4 mls/hr Administration Protocol 1 MG/HR Insulin Human Lispro 0 unit 08/03/21 12:00 08/04/21 05:37 Insulin Lispro 100 Unit/Ml SUB-Q 6 unit Q6HR TRISTEN Administration Protocol Methylprednisolone Sodium Succinate 40 mg 07/31/21 14:00 08/04/21 05:21 Methylprednisolone Sod Succinate 40 Mg/1 Ml Inj IV 08/10/21 06:01 40 mg Q8HR TRISTEN Administration Midazolam HCl 2 mg 08/03/21 14:29 Midazolam 2 Mg/2 Ml Inj IV Q10MIN PRN Sedation Multi-Ingred Cream/Lotion/Oil/Oint 1 applic 07/31/21 15:23 Mineral Oil/Petrolatum, White Ophth Oint 3.5 Gm OU Q4HR PRN Dry Eye(s) Ondansetron HCl 4 mg 07/31/21 11:44 Ondansetron 4 Mg/2 Ml Inj IV Q8H PRN Nausea And Vomiting Simple Syrup 30 ml 08/02/21 18:24 Simple Syrup 15 Ml FEEDTUBE PRN PRN Hypoglycemia Simple Syrup 15 ml 08/03/21 10:13 Simple Syrup 15 Ml FEEDTUBE PRN PRN Hypoglycemia Sodium Bicarbonate 325 mg 08/02/21 18:24 Sodium Bicarbonate 325 Mg Tab FEEDTUBE PRN PRN For Clogged Feeding Tube Sodium Chloride 10 ml 07/31/21 22:00 08/03/21 22:02 Sodium Chloride 0.9% 10 Ml Flush Syringe IV 10 ml BID TRISTEN Administration Sodium Chloride 10 ml 07/31/21 11:44 Sodium Chloride 0.9% 10 Ml Flush Syringe IV PRN PRN LINE FLUSH Zinc Sulfate 220 mg 07/31/21 22:00 08/03/21 21:52 Zinc Sulfate 220 Mg Cap PO 220 mg BID TRISTEN Administration
[2021-08-04 09:46] VITALS: BP 79/46
[2021-08-04] MEDS ORDERED: GLYCOPYRROLATE 0.4 MG/2 ML INJ IV PRN (10:08)
[2021-08-04] MEDS ORDERED: MORPHINE 2 MG/1 ML INJ IV PRN (10:08)
[2021-08-04] MEDS ORDERED: LORazepam 2 MG/ML VIAL IV PRN (10:08)
--- NOTE | 2021-08-04 10:34 | Event Note ---
<SHYANNE DASH - Last Filed: 08/04/21 18:02> Date: 08/04/21 This morning patient's son arrived to bedside at approximately 0800 and after long discussion with me and Dr. Lujan the patient's son Maria Victoria Cooper made the decision to change CODE STATUS to DNR and decided to escalate care. Paperwork was signed and witnessed by me and Dr. Lujan. Son stated he is the POA. Orders were placed to de-escalate care and to terminally extubate the patient. This was communicated to the nurse and RT. Charge nurse called to obtain a copy of the POA however Mr. Cooper communicated that the paperwork was left in [place]. Ms. Zakiya Mendoza's daughter will be at bedside to sign DNR and withdraw paperwork. non CCT: 30 mins <NANNETTE LUJAN - Last Filed: 08/05/21 14:10> I saw and evaluated the patient. Discussed with the nurse practitioner and agree with their findings and plan as documented in this note.
[2021-08-04] MEDS: CHOLECALCIFEROL (VIT D3) 400 UNIT TAB PO SCH (10:38)
[2021-08-04] MEDS: ASCORBIC ACID 500 MG TAB PO SCH (10:38)
[2021-08-04] MEDS: ZINC SULFATE 220 MG CAP PO SCH (10:38)
--- NOTE | 2021-08-04 10:57 | Electrocardiograph Report ---
[facility] Test Date: 2021-08-03 Test Time: 12:24:00 Pat Name: MATI CHOE Department: Room: A259 1 Gender: F [employer]ter: CYRIL : [id number] Requested By: SHYANNE DASH Order Number: [id number] Reading MD: Omar Marks Measurements Intervals [place] Rate: 123 P: IN: QRS: -11 QRSD: 96 T: 29 QT: 337 QTc: 501 Interpretive Statements Atrial fibrillation Ventricular premature complex Low voltage, precordial leads Prolonged QT interval Compared to ECG 08/01/2021 13:35:58, atrial fibrillation replaced sinus rhythm. Ventricular premature complex(es) now present Prolonged QT interval now present Sinus rhythm no longer present Electronically Signed On 08-04-2021 10:57:39 EDT by Omar Marks
--- NOTE | 2021-08-04 12:16 | Progress Note ---
Assessment and Plan Septic shock s/p Cardiopulmonary arrest with ROSC Acute hypoxemic respiratory failure on MVS Bilateral pneumonia, +MRSA Acute renal failure, unknown baseline GFR/Creatinine NSTEMI- possible type 2 ischemia Obesity COVID infection - for withdrawal later today & comfort care - continue care as below for now; - family decided against HD/UF - continue Daily SAT and SBT assessment as tolerated - continue accuchecks with glycemic control per SSI (While critically ill target blood glucose of 140-180 mg/dL; avoid hypoglycemia) - sedation prn for target RASS 0 to -1 - continue to wean supplemental oxygen for target O2 sat's > 90% acutely - VAP bundle addressed - continue lung protective strategies - continue bronchodilators with pulmonary hygiene per RT - wean per pulmonary driven protocols otherwise - avoid nephrotoxins, renally dose all medications - continue to avoid benzodiazepine's, reduce the possibility of delirium - antiinfective's per ID rec's - prn analgesia per CPOT score - Maintenance of sleep-wake cycle, avoid delirium - enteral nutritional support at goal rate as tolerated - G.I. & VTE prophylaxis - PT/OT/ROM exercises - continue mobility protocols for pressure ulcer prophylaxis - Monitor hemodynamics closely - continue other care per attending / other consultants - discharge planning ongoing concurrently COVID SPECIFIC INTERVENTIONS - Remdesivir as per ID/Pulmonary developed protocols - continue systemic steroids for severe COVID-19 infection empirically - follow repeat COVID tests results - zinc and vitamin C supplementation - Monitor inflammatory markers per facility protocol - ferritin, Ddimer, CRP - therapeutic anticoagulation per system Protocol based on d-dimer and clinical considerations - Continue contact and airborne isolation .... Re-evaluate in am & prn CONDITION: CRITICAL PROGNOSIS: GUARDED CODE STATUS: FULL CODE The high probability of a clinically significant, sudden or life-threatening deterioration of the [respiratory, cardiovascular & neurologic] system(s) re quired my full and direct attention, intervention and personal management. The aggregate critical care time was [33] minutes without overlap. Time includes spent on; [x] Data Review and interpretation [x] Patient assessment and monitoring of vital signs [x] Documentation [x] Medication orders and management Subjective Date of service: 08/04/21 Principal diagnosis: Septic shock; Acute hypoxemic resp failure; Pneumonia; COVID infection Interval history: Patient is seen today for: Septic shock; Cardiac arrest with ROSC; Acute hypoxemic respiratory failure; Pneumonia; RHINA; NSTEMI; COVID infection Seen and examined at bedside; 24hour events reviewed; nursing and respiratory care staff consulted; no adverse overnight events reported to me; resting peacefully in bed; remains on MVS and critically ill; next of kin is opting for comfort care and deceleration at this point; no emesis or overt aspiration Objective Vital Signs - 12hr 08/04/21 08/04/21 08/04/21 00:21 00:31 00:41 Temperature Pulse Rate 129 H 119 H 123 H Respiratory 24 30 H 22 Rate Blood Pressure O2 Sat by Pulse 96 97 98 Oximetry 08/04/21 08/04/21 08/04/21 00:51 01:01 01:11 Temperature Pulse Rate 119 H 128 H 125 H Respiratory 24 30 H 26 H Rate Blood Pressure O2 Sat by Pulse 98 98 97 Oximetry 08/04/21 08/04/21 08/04/21 01:21 01:31 01:41 Temperature Pulse Rate 129 H 131 H 129 H Respiratory 29 H 30 H 26 H Rate Blood Pressure O2 Sat by Pulse 98 96 97 Oximetry 08/04/21 08/04/21 08/04/21 01:51 02:01 02:11 Temperature Pulse Rate 122 H 126 H 127 H Respiratory 30 H 30 H 30 H Rate Blood Pressure O2 Sat by Pulse 97 97 93 Oximetry 08/04/21 08/04/21 08/04/21 02:21 02:31 02:41 Temperature Pulse Rate 127 H 129 H 133 H Respiratory 21 19 23 Rate Blood Pressure O2 Sat by Pulse 95 95 93 Oximetry 08/04/21 08/04/21 08/04/21 02:51 03:01 03:11 Temperature Pulse Rate 121 H 122 H 120 H Respiratory 28 H 23 23 Rate Blood Pressure O2 Sat by Pulse 96 95 95 Oximetry 08/04/21 08/04/21 08/04/21 03:21 03:31 03:41 Temperature Pulse Rate 119 H 132 H 117 H Respiratory 25 H 23 30 H Rate Blood Pressure O2 Sat by Pulse 96 94 94 Oximetry 08/04/21 08/04/21 08/04/21 03:51 04:00 04:01 Temperature 101.3 F H Pulse Rate 122 H 129 H Respiratory 25 H 32 H 27 H Rate Blood Pressure O2 Sat by Pulse 92 88 93 Oximetry 10/19/21 10/19/21 10/19/21 04:11 04:21 04:30 Temperature Pulse Rate 122 H 130 H 122 H Respiratory 29 H 20 Rate Blood Pressure 108/60 O2 Sat by Pulse 92 93 94 Oximetry 08/04/21 08/04/21 08/04/21 04:31 04:41 04:51 Temperature Pulse Rate 128 H 116 H 115 H Respiratory 29 H 26 H 27 H Rate Blood Pressure O2 Sat by Pulse 93 94 95 Oximetry 08/04/21 08/04/21 08/04/21 05:01 05:11 05:20 Temperature Pulse Rate 120 H 122 H 119 H Respiratory 29 H 30 H 30 H Rate Blood Pressure O2 Sat by Pulse 97 97 96 Oximetry 08/04/21 08/04/21 08/04/21 05:30 05:40 05:50 Temperature Pulse Rate 112 H 127 H 128 H Respiratory 30 H 27 H 30 H Rate Blood Pressure 79/46 O2 Sat by Pulse 96 94 98 Oximetry 08/04/21 08/04/21 08/04/21 06:00 06:10 06:20 Temperature Pulse Rate 128 H 127 H 124 H Respiratory 30 H 30 H 32 H Rate Blood Pressure 79/46 79/46 79/46 O2 Sat by Pulse 96 96 100 Oximetry 08/04/21 08/04/21 08/04/21 06:30 06:40 06:50 Temperature Pulse Rate 111 H 128 H 121 H Respiratory 17 22 27 H Rate Blood Pressure 79/46 79/46 79/46 O2 Sat by Pulse 100 99 96 Oximetry 08/04/21 08/04/21 08/04/21 07:00 07:10 07:20 Temperature Pulse Rate 117 H 120 H 119 H Respiratory 19 20 23 Rate Blood Pressure 79/46 79/46 79/46 O2 Sat by Pulse 97 98 97 Oximetry 08/04/21 08/04/21 08/04/21 07:30 07:40 07:50 Temperature Pulse Rate 120 H 115 H 123 H Respiratory 17 16 24 Rate Blood Pressure 79/46 79/46 79/46 O2 Sat by Pulse 94 96 96 Oximetry 08/04/21 08/04/21 08/04/21 08:00 08:10 08:20 Temperature Pulse Rate 124 H 112 H 115 H Respiratory 16 16 17 Rate Blood Pressure 79/46 79/46 79/46 O2 Sat by Pulse 95 97 98 Oximetry 08/04/21 08/04/21 08/04/21 08:30 08:34 08:36 Temperature Pulse Rate 114 H 109 H 108 H Respiratory 19 16 14 Rate Blood Pressure 79/46 79/46 79/46 O2 Sat by Pulse 97 97 97 Oximetry 08/04/21 08/04/21 08/04/21 08:38 08:40 08:42 Temperature Pulse Rate 124 H 106 H 122 H Respiratory 16 19 13 Rate Blood Pressure 79/46 79/46 79/46 O2 Sat by Pulse 96 96 96 Oximetry 08/04/21 08/04/21 08/04/21 08:44 08:46 08:48 Temperature Pulse Rate 117 H 116 H 115 H Respiratory 14 19 16 Rate Blood Pressure 79/46 79/46 79/46 O2 Sat by Pulse 96 97 97 Oximetry 08/04/21 08/04/21 08/04/21 08:50 08:52 08:54 Temperature Pulse Rate 109 H 118 H 123 H Respiratory 25 H 19 28 H Rate Blood Pressure 79/46 79/46 79/46 O2 Sat by Pulse 96 97 97 Oximetry 08/04/21 08/04/21 08/04/21 08:56 08:58 09:00 Temperature Pulse Rate 112 H 114 H 120 H Respiratory 27 H 31 H 28 H Rate Blood Pressure 79/46 79/46 79/46 O2 Sat by Pulse 97 97 97 Oximetry 08/04/21 08/04/21 08/04/21 09:02 09:04 09:06 Temperature Pulse Rate 116 H 114 H 122 H Respiratory 29 H 30 H 30 H Rate Blood Pressure 79/46 79/46 79/46 O2 Sat by Pulse 96 96 97 Oximetry 08/04/21 08/04/21 08/04/21 09:08 09:10 09:12 Temperature Pulse Rate 110 H 119 H 104 H Respiratory 25 H 30 H 27 H Rate Blood Pressure 79/46 79/46 79/46 O2 Sat by Pulse 96 97 98 Oximetry 08/04/21 08/04/21 08/04/21 09:14 09:16 09:18 Temperature Pulse Rate 119 H 111 H 126 H Respiratory 29 H 26 H 25 H Rate Blood Pressure 79/46 79/46 79/46 O2 Sat by Pulse 98 98 98 Oximetry 08/04/21 08/04/21 08/04/21 09:20 09:22 09:24 Temperature Pulse Rate 112 H 127 H 114 H Respiratory 14 22 12 Rate Blood Pressure 79/46 79/46 79/46 O2 Sat by Pulse 99 98 98 Oximetry 08/04/21 08/04/21 08/04/21 09:26 09:28 09:30 Temperature Pulse Rate 117 H 116 H 112 H Respiratory 15 14 15 Rate Blood Pressure 79/46 79/46 79/46 O2 Sat by Pulse 99 99 98 Oximetry 08/04/21 08/04/21 08/04/21 09:32 09:34 09:36 Temperature Pulse Rate 114 H 121 H 125 H Respiratory 28 H 22 16 Rate Blood Pressure 79/46 79/46 79/46 O2 Sat by Pulse 98 99 99 Oximetry 08/04/21 08/04/21 08/04/21 09:38 09:40 09:42 Temperature Pulse Rate 117 H 112 H 117 H Respiratory 17 22 19 Rate Blood Pressure 79/46 79/46 79/46 O2 Sat by Pulse 97 99 99 Oximetry 08/04/21 08/04/21 08/04/21 09:50 10:00 10:10 Temperature Pulse Rate 119 H 108 H 123 H Respiratory 22 17 22 Rate Blood Pressure 79/46 79/46 79/46 O2 Sat by Pulse 98 98 99 Oximetry 08/04/21 08/04/21 08/04/21 10:20 10:30 10:40 Temperature Pulse Rate 115 H 117 H 111 H Respiratory 14 23 19 Rate Blood Pressure 79/46 79/46 79/46 O2 Sat by Pulse 97 100 99 Oximetry Constitutional: appears uncomfortable, other (mild to moderate distress, orally intubated, ETT to MVS) Eyes: non-icteric ENT: oropharynx dry, other (ETT 23 cm CHRIS) Neck: supple, no lymphadenopathy, no JVD Effort: mildly labored Ascultation: Bilateral: diminished breath sounds, rhonchi Percussion: Bilateral: not dull Cardiovascular: regular rate and rhythm (tachycardia), other (S1,S2) Gastrointestinal: normoactive bowel sounds, hypoactive bowel sounds, soft, non- tender, non-distended (protuberant), other (Asher catheter) Integumentary: normal Extremities: no cyanosis, pink and warm, pulses normal, edema Neurologic: pupils equal and round, unable to assess Psychiatric: other (unable to assess re: AMS) CBC and BMP: 08/04/21 04:20 08/04/21 04:20 ABG, PT/INR, D-dimer: ABG ABG pH 7.178 pH Units (7.350-7.450) L* 08/03/21 13:43 POC ABG pCO2 54.7 mmHg (32.0-48.0) H 08/03/21 04:58 ABG pCO2 57.1 mm Hg 08/03/21 13:43 POC ABG pO2 44.5 mmHg (83-108) L 08/03/21 04:58 ABG pO2 44.6 mm Hg (80.0-90.0) L 08/03/21 13:43 POC ABG HCO3 16.7 08/03/21 04:58 ABG O2 Saturation 79.4 % (95.0-99.0) L 08/03/21 13:43 PT/INR, D-dimer PT 18.5 Sec. (12.2-14.9) H 07/31/21 18:30 INR 1.39 (0.87-1.13) H 07/31/21 18:30 D-Dimer 2619.75 ng/mlDDU (0-234) H 07/31/21 09:46 Abnormal lab findings: Abnormal Labs 07/31/21 07/31/21 07/31/21 09:27 09:27 09:46 WBC 15.5 H RBC Hgb 14.5 H Hct 44.7 H RDW Seg Neuts % (Manual) 77.0 H Lymphocytes % (Manual) 10.0 L Monocytes % (Manual) 13.0 H Nucleated RBC % Seg Neutrophils # Man 11.9 H Lymphocytes # (Manual) Monocytes # (Manual) 2.0 H PT 17.0 H INR 1.25 H D-Dimer 2619.75 H Heparin Anti-Xa Level ABG pH POC ABG pCO2 POC ABG pO2 ABG pO2 ABG HCO3 ABG O2 Saturation ABG Base Excess ABG Hemoglobin ABG Oxyhemoglobin ABG Sodium ABG Chloride ABG Glucose Oxyhemoglobin Carboxyhemoglobin Sodium Chloride Carbon Dioxide BUN Creatinine Glucose POC Glucose Calcium Phosphorus Ferritin Total Bilirubin AST Lactate Dehydrogenase Troponin T 0.069 H C-Reactive Protein NT-Pro-B Natriuret Pep Total Protein Albumin Triglycerides 235 H HDL Cholesterol 29 L Arterial Blood Glucose Urine WBC (Auto) Urine Creatinine Urine Total Protein Coronavirus (PCR) 07/31/21 07/31/21 07/31/21 09:46 10:48 11:09 WBC RBC Hgb Hct RDW Seg Neuts % (Manual) Lymphocytes % (Manual) Monocytes % (Manual) Nucleated RBC % Seg Neutrophils # Man Lymphocytes # (Manual) Monocytes # (Manual) PT INR D-Dimer Heparin Anti-Xa Level ABG pH POC ABG pCO2 POC ABG pO2 ABG pO2 ABG HCO3 ABG O2 Saturation ABG Base Excess ABG Hemoglobin ABG Oxyhemoglobin ABG Sodium ABG Chloride ABG Glucose Oxyhemoglobin Carboxyhemoglobin Sodium 135 L Chloride 93.6 L Carbon Dioxide 17 L BUN 71 H Creatinine 2.7 H Glucose 468 H POC Glucose 458 H Calcium Phosphorus Ferritin 4832.0 H Total Bilirubin AST 79 H Lactate Dehydrogenase Troponin T C-Reactive Protein NT-Pro-B Natriuret Pep 8486 H Total Protein Albumin 3.4 L Triglycerides HDL Cholesterol Arterial Blood Glucose Urine WBC (Auto) Urine Creatinine Urine Total Protein Coronavirus (PCR) 07/31/21 07/31/21 07/31/21 11:09 13:03 17:58 WBC RBC Hgb Hct RDW Seg Neuts % (Manual) Lymphocytes % (Manual) Monocytes % (Manual) Nucleated RBC % Seg Neutrophils # Man Lymphocytes # (Manual) Monocytes # (Manual) PT INR D-Dimer Heparin Anti-Xa Level ABG pH POC ABG pCO2 POC ABG pO2 ABG pO2 62.5 L ABG HCO3 ABG O2 Saturation 90.0 L ABG Base Excess -3.0 L ABG Hemoglobin ABG Oxyhemoglobin ABG Sodium ABG Chloride ABG Glucose Oxyhemoglobin 88.3 L Carboxyhemoglobin Sodium Chloride Carbon Dioxide BUN Creatinine Glucose POC Glucose 400 H Calcium Phosphorus Ferritin Total Bilirubin AST Lactate Dehydrogenase 1809 H Troponin T C-Reactive Protein 32.70 H NT-Pro-B Natriuret Pep Total Protein Albumin Triglycerides HDL Cholesterol Arterial Blood Glucose Urine WBC (Auto) Urine Creatinine Urine Total Protein Coronavirus (PCR) 07/31/21 07/31/21 07/31/21 18:10 18:30 20:10 WBC RBC Hgb Hct RDW Seg Neuts % (Manual) Lymphocytes % (Manual) Monocytes % (Manual) Nucleated RBC % Seg Neutrophils # Man Lymphocytes # (Manual) Monocytes # (Manual) PT 18.5 H INR 1.39 H D-Dimer Heparin Anti-Xa Level ABG pH 7.319 L POC ABG pCO2 POC ABG pO2 ABG pO2 151.8 H ABG HCO3 ABG O2 Saturation ABG Base Excess -5.0 L ABG Hemoglobin ABG Oxyhemoglobin ABG Sodium ABG Chloride ABG Glucose Oxyhemoglobin Carboxyhemoglobin Sodium Chloride Carbon Dioxide BUN Creatinine Glucose POC Glucose 428 H Calcium Phosphorus Ferritin Total Bilirubin AST Lactate Dehydrogenase Troponin T C-Reactive Protein NT-Pro-B Natriuret Pep Total Protein Albumin Triglycerides HDL Cholesterol Arterial Blood Glucose Urine WBC (Auto) Urine Creatinine Urine Total Protein Coronavirus (PCR) 08/01/21 08/01/21 08/01/21 00:28 05:44 05:44 WBC 15.9 H RBC Hgb Hct RDW Seg Neuts % (Manual) 88.0 H Lymphocytes % (Manual) 6.0 L Monocytes % (Manual) Nucleated RBC % 2.0 H Seg Neutrophils # Man 14.0 H Lymphocytes # (Manual) 1.0 L Monocytes # (Manual) PT INR D-Dimer Heparin Anti-Xa Level ABG pH POC ABG pCO2 POC ABG pO2 ABG pO2 ABG HCO3 ABG O2 Saturation ABG Base Excess ABG Hemoglobin ABG Oxyhemoglobin ABG Sodium ABG Chloride ABG Glucose Oxyhemoglobin Carboxyhemoglobin Sodium Chloride Carbon Dioxide 21 L BUN 83 H Creatinine 2.5 H Glucose 410 H POC Glucose 377 H Calcium Phosphorus Ferritin Total Bilirubin AST 46 H Lactate Dehydrogenase Troponin T C-Reactive Protein NT-Pro-B Natriuret Pep Total Protein 6.2 L D Albumin 2.8 L Triglycerides HDL Cholesterol Arterial Blood Glucose Urine WBC (Auto) Urine Creatinine Urine Total Protein Coronavirus (PCR) 08/01/21 08/01/21 08/01/21 06:33 07:56 09:00 WBC RBC Hgb Hct RDW Seg Neuts % (Manual) Lymphocytes % (Manual) Monocytes % (Manual) Nucleated RBC % Seg Neutrophils # Man Lymphocytes # (Manual) Monocytes # (Manual) PT INR D-Dimer Heparin Anti-Xa Level ABG pH POC ABG pCO2 30.9 L POC ABG pO2 151.8 H ABG pO2 ABG HCO3 ABG O2 Saturation ABG Base Excess ABG Hemoglobin ABG Oxyhemoglobin 98.2 H ABG Sodium 134.8 L ABG Chloride ABG Glucose 391 H Oxyhemoglobin Carboxyhemoglobin Sodium Chloride Carbon Dioxide BUN Creatinine Glucose POC Glucose 345 H Calcium Phosphorus Ferritin Total Bilirubin AST Lactate Dehydrogenase Troponin T C-Reactive Protein NT-Pro-B Natriuret Pep Total Protein Albumin Triglycerides HDL Cholesterol Arterial Blood Glucose 391 H Urine WBC (Auto) Urine Creatinine Urine Total Protein Coronavirus (PCR) Positive A 08/01/21 08/01/21 08/01/21 13:17 18:15 18:46 WBC RBC Hgb Hct RDW Seg Neuts % (Manual) Lymphocytes % (Manual) Monocytes % (Manual) Nucleated RBC % Seg Neutrophils # Man Lymphocytes # (Manual) Monocytes # (Manual) PT INR D-Dimer Heparin Anti-Xa Level 0.84 H ABG pH POC ABG pCO2 POC ABG pO2 ABG pO2 ABG HCO3 ABG O2 Saturation ABG Base Excess ABG Hemoglobin ABG Oxyhemoglobin ABG Sodium ABG Chloride ABG Glucose Oxyhemoglobin Carboxyhemoglobin Sodium Chloride Carbon Dioxide BUN Creatinine Glucose POC Glucose 345 H 373 H Calcium Phosphorus Ferritin Total Bilirubin AST Lactate Dehydrogenase Troponin T C-Reactive Protein NT-Pro-B Natriuret Pep Total Protein Albumin Triglycerides HDL Cholesterol Arterial Blood Glucose Urine WBC (Auto) Urine Creatinine Urine Total Protein Coronavirus (PCR) 08/01/21 08/02/21 08/02/21 22:22 00:56 02:51 WBC RBC Hgb Hct RDW Seg Neuts % (Manual) Lymphocytes % (Manual) Monocytes % (Manual) Nucleated RBC % Seg Neutrophils # Man Lymphocytes # (Manual) Monocytes # (Manual) PT INR D-Dimer Heparin Anti-Xa Level ABG pH POC ABG pCO2 POC ABG pO2 79.6 L ABG pO2 ABG HCO3 ABG O2 Saturation ABG Base Excess ABG Hemoglobin ABG Oxyhemoglobin ABG Sodium ABG Chloride ABG Glucose 367 H Oxyhemoglobin Carboxyhemoglobin 0.4 L Sodium Chloride Carbon Dioxide BUN Creatinine Glucose POC Glucose 297 H 324 H Calcium Phosphorus Ferritin Total Bilirubin AST Lactate Dehydrogenase Troponin T C-Reactive Protein NT-Pro-B Natriuret Pep Total Protein Albumin Triglycerides HDL Cholesterol Arterial Blood Glucose 367 H Urine WBC (Auto) Urine Creatinine Urine Total Protein Coronavirus (PCR) 08/02/21 08/02/21 08/02/21 03:49 03:49 05:57 WBC 20.2 H RBC Hgb Hct RDW Seg Neuts % (Manual) Lymphocytes % (Manual) Monocytes % (Manual) Nucleated RBC % Seg Neutrophils # Man Lymphocytes # (Manual) Monocytes # (Manual) PT INR D-Dimer Heparin Anti-Xa Level ABG pH POC ABG pCO2 POC ABG pO2 ABG pO2 ABG HCO3 ABG O2 Saturation ABG Base Excess ABG Hemoglobin ABG Oxyhemoglobin ABG Sodium ABG Chloride ABG Glucose Oxyhemoglobin Carboxyhemoglobin Sodium Chloride Carbon Dioxide 19 L BUN 77 H Creatinine 2.0 H Glucose 357 H POC Glucose 274 H Calcium Phosphorus Ferritin Total Bilirubin AST Lactate Dehydrogenase Troponin T C-Reactive Protein NT-Pro-B Natriuret Pep Total Protein Albumin 2.7 L Triglycerides HDL Cholesterol Arterial Blood Glucose Urine WBC (Auto) Urine Creatinine Urine Total Protein Coronavirus (PCR) 08/02/21 08/02/21 08/02/21 09:19 12:09 13:54 WBC RBC Hgb Hct RDW Seg Neuts % (Manual) Lymphocytes % (Manual) Monocytes % (Manual) Nucleated RBC % Seg Neutrophils # Man Lymphocytes # (Manual) Monocytes # (Manual) PT INR D-Dimer Heparin Anti-Xa Level < 0.10 L ABG pH POC ABG pCO2 POC ABG pO2 ABG pO2 ABG HCO3 ABG O2 Saturation ABG Base Excess ABG Hemoglobin ABG Oxyhemoglobin ABG Sodium ABG Chloride ABG Glucose Oxyhemoglobin Carboxyhemoglobin Sodium Chloride Carbon Dioxide BUN Creatinine Glucose POC Glucose 291 H Calcium Phosphorus Ferritin Total Bilirubin AST Lactate Dehydrogenase Troponin T C-Reactive Protein NT-Pro-B Natriuret Pep Total Protein Albumin Triglycerides HDL Cholesterol Arterial Blood Glucose Urine WBC (Auto) 12.0 H Urine Creatinine Urine Total Protein Coronavirus (PCR) 08/02/21 08/02/21 08/02/21 13:54 17:34 18:52 WBC RBC Hgb Hct RDW Seg Neuts % (Manual) Lymphocytes % (Manual) Monocytes % (Manual) Nucleated RBC % Seg Neutrophils # Man Lymphocytes # (Manual) Monocytes # (Manual) PT INR D-Dimer Heparin Anti-Xa Level ABG pH POC ABG pCO2 POC ABG pO2 ABG pO2 ABG HCO3 ABG O2 Saturation ABG Base Excess ABG Hemoglobin ABG Oxyhemoglobin ABG Sodium ABG Chloride ABG Glucose Oxyhemoglobin Carboxyhemoglobin Sodium Chloride Carbon Dioxide BUN Creatinine Glucose POC Glucose 172 H 187 H Calcium Phosphorus Ferritin Total Bilirubin AST Lactate Dehydrogenase Troponin T C-Reactive Protein NT-Pro-B Natriuret Pep Total Protein Albumin Triglycerides HDL Cholesterol Arterial Blood Glucose Urine WBC (Auto) Urine Creatinine 170.6 H Urine Total Protein 92 H Coronavirus (PCR) 08/02/21 08/02/21 08/02/21 20:17 21:38 22:03 WBC RBC Hgb Hct RDW Seg Neuts % (Manual) Lymphocytes % (Manual) Monocytes % (Manual) Nucleated RBC % Seg Neutrophils # Man Lymphocytes # (Manual) Monocytes # (Manual) PT INR D-Dimer Heparin Anti-Xa Level ABG pH POC ABG pCO2 POC ABG pO2 ABG pO2 ABG HCO3 ABG O2 Saturation ABG Base Excess ABG Hemoglobin ABG Oxyhemoglobin ABG Sodium ABG Chloride ABG Glucose Oxyhemoglobin Carboxyhemoglobin Sodium Chloride Carbon Dioxide BUN Creatinine Glucose POC Glucose 180 H 167 H 158 H Calcium Phosphorus Ferritin Total Bilirubin AST Lactate Dehydrogenase Troponin T C-Reactive Protein NT-Pro-B Natriuret Pep Total Protein Albumin Triglycerides HDL Cholesterol Arterial Blood Glucose Urine WBC (Auto) Urine Creatinine Urine Total Protein Coronavirus (PCR) 08/02/21 08/02/21 08/03/21 23:22 23:49 01:03 WBC RBC Hgb Hct RDW Seg Neuts % (Manual) Lymphocytes % (Manual) Monocytes % (Manual) Nucleated RBC % Seg Neutrophils # Man Lymphocytes # (Manual) Monocytes # (Manual) PT INR D-Dimer Heparin Anti-Xa Level ABG pH POC ABG pCO2 POC ABG pO2 ABG pO2 ABG HCO3 ABG O2 Saturation ABG Base Excess ABG Hemoglobin ABG Oxyhemoglobin ABG Sodium ABG Chloride ABG Glucose Oxyhemoglobin Carboxyhemoglobin Sodium Chloride Carbon Dioxide BUN Creatinine Glucose POC Glucose 154 H 139 H 129 H Calcium Phosphorus Ferritin Total Bilirubin AST Lactate Dehydrogenase Troponin T C-Reactive Protein NT-Pro-B Natriuret Pep Total Protein Albumin Triglycerides HDL Cholesterol Arterial Blood Glucose Urine WBC (Auto) Urine Creatinine Urine Total Protein Coronavirus (PCR) 08/03/21 08/03/21 08/03/21 02:02 03:25 03:25 WBC 21.7 H RBC 3.54 L Hgb Hct RDW Seg Neuts % (Manual) Lymphocytes % (Manual) Monocytes % (Manual) Nucleated RBC % Seg Neutrophils # Man Lymphocytes # (Manual) Monocytes # (Manual) PT INR D-Dimer Heparin Anti-Xa Level ABG pH POC ABG pCO2 POC ABG pO2 ABG pO2 ABG HCO3 ABG O2 Saturation ABG Base Excess ABG Hemoglobin ABG Oxyhemoglobin ABG Sodium ABG Chloride ABG Glucose Oxyhemoglobin Carboxyhemoglobin Sodium Chloride 108.5 H Carbon Dioxide 18 L BUN 77 H Creatinine 2.8 H Glucose 187 H POC Glucose 137 H Calcium 8.2 L Phosphorus Ferritin Total Bilirubin AST 49 H Lactate Dehydrogenase Troponin T C-Reactive Protein NT-Pro-B Natriuret Pep Total Protein 5.6 L Albumin 2.1 L Triglycerides HDL Cholesterol Arterial Blood Glucose Urine WBC (Auto) Urine Creatinine Urine Total Protein Coronavirus (PCR) 08/03/21 08/03/21 08/03/21 03:37 04:58 05:47 WBC RBC Hgb Hct RDW Seg Neuts % (Manual) Lymphocytes % (Manual) Monocytes % (Manual) Nucleated RBC % Seg Neutrophils # Man Lymphocytes # (Manual) Monocytes # (Manual) PT INR D-Dimer Heparin Anti-Xa Level ABG pH 7.102 L POC ABG pCO2 54.7 H POC ABG pO2 44.5 L ABG pO2 ABG HCO3 ABG O2 Saturation ABG Base Excess ABG Hemoglobin ABG Oxyhemoglobin 72.8 L ABG Sodium ABG Chloride 110.0 H ABG Glucose 216 H Oxyhemoglobin Carboxyhemoglobin Sodium Chloride Carbon Dioxide BUN Creatinine Glucose POC Glucose 146 H 190 H Calcium Phosphorus Ferritin Total Bilirubin AST Lactate Dehydrogenase Troponin T C-Reactive Protein NT-Pro-B Natriuret Pep Total Protein Albumin Triglycerides HDL Cholesterol Arterial Blood Glucose 216 H Urine WBC (Auto) Urine Creatinine Urine Total Protein Coronavirus (PCR) 08/03/21 08/03/21 08/03/21 07:53 10:45 12:31 WBC RBC Hgb Hct RDW Seg Neuts % (Manual) Lymphocytes % (Manual) Monocytes % (Manual) Nucleated RBC % Seg Neutrophils # Man Lymphocytes # (Manual) Monocytes # (Manual) PT INR D-Dimer Heparin Anti-Xa Level ABG pH 7.151 L* POC ABG pCO2 POC ABG pO2 ABG pO2 54.1 L ABG HCO3 19.3 L ABG O2 Saturation 83.5 L ABG Base Excess -9.4 L ABG Hemoglobin 9.6 L ABG Oxyhemoglobin ABG Sodium ABG Chloride ABG Glucose Oxyhemoglobin 81.8 L Carboxyhemoglobin Sodium Chloride Carbon Dioxide BUN Creatinine Glucose POC Glucose 221 H 255 H Calcium Phosphorus Ferritin Total Bilirubin AST Lactate Dehydrogenase Troponin T C-Reactive Protein NT-Pro-B Natriuret Pep Total Protein Albumin Triglycerides HDL Cholesterol Arterial Blood Glucose Urine WBC (Auto) Urine Creatinine Urine Total Protein Coronavirus (PCR) 08/03/21 08/03/21 08/03/21 13:43 16:50 17:11 WBC RBC Hgb Hct RDW Seg Neuts % (Manual) Lymphocytes % (Manual) Monocytes % (Manual) Nucleated RBC % Seg Neutrophils # Man Lymphocytes # (Manual) Monocytes # (Manual) PT INR D-Dimer Heparin Anti-Xa Level 0.20 L ABG pH 7.178 L* POC ABG pCO2 POC ABG pO2 ABG pO2 44.6 L ABG HCO3 ABG O2 Saturation 79.4 L ABG Base Excess -7.3 L ABG Hemoglobin 7.5 L ABG Oxyhemoglobin ABG Sodium ABG Chloride ABG Glucose Oxyhemoglobin 77.9 L Carboxyhemoglobin Sodium Chloride Carbon Dioxide BUN Creatinine Glucose POC Glucose 261 H Calcium Phosphorus Ferritin Total Bilirubin AST Lactate Dehydrogenase Troponin T C-Reactive Protein NT-Pro-B Natriuret Pep Total Protein Albumin Triglycerides HDL Cholesterol Arterial Blood Glucose Urine WBC (Auto) Urine Creatinine Urine Total Protein Coronavirus (PCR) 08/03/21 08/04/21 08/04/21 23:56 04:20 04:20 WBC 28.3 H RBC 3.32 L Hgb 10.0 L Hct RDW 15.3 H Seg Neuts % (Manual) Lymphocytes % (Manual) Monocytes % (Manual) Nucleated RBC % Seg Neutrophils # Man Lymphocytes # (Manual) Monocytes # (Manual) PT INR D-Dimer Heparin Anti-Xa Level ABG pH POC ABG pCO2 POC ABG pO2 ABG pO2 ABG HCO3 ABG O2 Saturation ABG Base Excess ABG Hemoglobin ABG Oxyhemoglobin ABG Sodium ABG Chloride ABG Glucose Oxyhemoglobin Carboxyhemoglobin Sodium Chloride Carbon Dioxide 20 L BUN 84 H Creatinine 4.2 H Glucose 251 H POC Glucose 216 H Calcium 7.5 L Phosphorus 6.30 H Ferritin Total Bilirubin 2.10 H AST 51 H Lactate Dehydrogenase Troponin T C-Reactive Protein NT-Pro-B Natriuret Pep Total Protein 5.9 L Albumin 2.2 L Triglycerides HDL Cholesterol Arterial Blood Glucose Urine WBC (Auto) Urine Creatinine Urine Total Protein Coronavirus (PCR) 08/04/21 05:33 WBC RBC Hgb Hct RDW Seg Neuts % (Manual) Lymphocytes % (Manual) Monocytes % (Manual) Nucleated RBC % Seg Neutrophils # Man Lymphocytes # (Manual) Monocytes # (Manual) PT INR D-Dimer Heparin Anti-Xa Level ABG pH POC ABG pCO2 POC ABG pO2 ABG pO2 ABG HCO3 ABG O2 Saturation ABG Base Excess ABG Hemoglobin ABG Oxyhemoglobin ABG Sodium ABG Chloride ABG Glucose Oxyhemoglobin Carboxyhemoglobin Sodium Chloride Carbon Dioxide BUN Creatinine Glucose POC Glucose 267 H Calcium Phosphorus Ferritin Total Bilirubin AST Lactate Dehydrogenase Troponin T C-Reactive Protein NT-Pro-B Natriuret Pep Total Protein Albumin Triglycerides HDL Cholesterol Arterial Blood Glucose Urine WBC (Auto) Urine Creatinine Urine Total Protein Coronavirus (PCR) Chest x-ray: image reviewed (tubes and lines in good position; SQ emphysema to upper neck) Allied health notes reviewed: nursing
--- NOTE | 2021-08-04 12:19 | Progress Note ---
Assessment and Plan Cultures: COVID-19 PCR: Positive 07/31/2021 blood culture: No growth 07/31/2021 sputum culture: MRSA 08/02/2021 urine culture: No growth A/P: 65-year-old female past medical history obesity, diabetes, rheumatoid arthritis, paroxysmal A. fib, CHF admitted as Covid PUI: #S/P PEA arrest 08/03/2021, shock: On multiple pressors #Acute hypoxic respiratory failure: Currently on the vent. Likely secondary to COVID-19 #Bilateral pneumonia secondary to COVID-19: CXR with bilateral multifocal pneum onia. Severe hypoxia. #CHF #Diabetes: tight glycemic control for best outcomes. #RHINA: Renally dose antibiotics. Recs: Noted DNR, plans for terminal extubation and withdrawal of care. Infectious diseases will sign off. Please call with questions. Cathy Espana MD, FACP [facility] ([facility]) O: [phone] F: [phone] Subjective Date of service: 08/04/21 Principal diagnosis: COVID-19 PNA Interval history: Febrile. Remains critically ill. Now DNR. Multiple pressors. Objective - Exam Narrative Exam: Physical Exam: Constitutional: sedated, intubated, on the vent Head, Ears, Nose: Normocephalic, atraumatic. External ears, nose normal Eyes: Conjunctivae/corneas clear. No icterus. No ptosis. Neck: intubated Oral: intubated Cardiovascular: S1, S2 + Respiratory: AE fair bilaterally and equal GI: Soft, bowel sounds + Musculoskeletal: No pedal edema, no cyanosis. Skin: No rash or abscess Hem/Lymphatic: No palpable cervical or supraclavicular nodes. No lymphangitis Psych: no agitation Neurological: sedated, intubated, on the vent, exam limited - Constitutional Vitals: Vital Signs Temp Pulse Resp BP Pulse Ox 101.3 F H 111 H 19 79/46 99 08/04/21 04:00 08/04/21 10:40 08/04/21 10:40 08/04/21 10:40 08/04/21 10:40 Temperature -Last 24 Hours Temperature 101.3 F Temperature 100.9 F Temperature 101.3 F Temperature 101.3 F - Labs CBC & Chem 7: 08/04/21 04:20 08/04/21 04:20 Labs: Abnormal lab results 08/03/21 08/03/21 08/03/21 Range/Units 12:31 13:43 16:50 WBC (4.5-11.0) K/mm3 RBC (3.65-5.03) M/mm3 Hgb (10.1-14.3) gm/dl RDW (13.2-15.2) % Heparin Anti-Xa Level 0.20 L (0.3-0.7) U.I./ml ABG pH 7.178 L* (7.350-7.450) pH Units ABG pO2 44.6 L (80.0-90.0) mm Hg ABG O2 Saturation 79.4 L (95.0-99.0) % ABG Base Excess -7.3 L (-2.0-3.0) mmol/L ABG Hemoglobin 7.5 L (12.0-16.0) gm/dl Oxyhemoglobin 77.9 L (95.0-99.0) % Carbon Dioxide (22-30) mmol/L BUN (7-17) mg/dL Creatinine (0.6-1.2) mg/dL Glucose (65-100) mg/dL POC Glucose 255 H (70-105) mg/dL Calcium (8.4-10.2) mg/dL Phosphorus (2.5-4.5) mg/dL Total Bilirubin (0.1-1.2) mg/dL AST (5-40) units/L Total Protein (6.3-8.2) g/dL Albumin (3.9-5) g/dL 08/03/21 08/03/21 08/04/21 Range/Units 17:11 23:56 04:20 WBC 28.3 H (4.5-11.0) K/mm3 RBC 3.32 L (3.65-5.03) M/mm3 Hgb 10.0 L (10.1-14.3) gm/dl RDW 15.3 H (13.2-15.2) % Heparin Anti-Xa Level (0.3-0.7) U.I./ml ABG pH (7.350-7.450) pH Units ABG pO2 (80.0-90.0) mm Hg ABG O2 Saturation (95.0-99.0) % ABG Base Excess (-2.0-3.0) mmol/L ABG Hemoglobin (12.0-16.0) gm/dl Oxyhemoglobin (95.0-99.0) % Carbon Dioxide (22-30) mmol/L BUN (7-17) mg/dL Creatinine (0.6-1.2) mg/dL Glucose (65-100) mg/dL POC Glucose 261 H 216 H (70-105) mg/dL Calcium (8.4-10.2) mg/dL Phosphorus (2.5-4.5) mg/dL Total Bilirubin (0.1-1.2) mg/dL AST (5-40) units/L Total Protein (6.3-8.2) g/dL Albumin (3.9-5) g/dL 08/04/21 08/04/21 Range/Units 04:20 05:33 WBC (4.5-11.0) K/mm3 RBC (3.65-5.03) M/mm3 Hgb (10.1-14.3) gm/dl RDW (13.2-15.2) % Heparin Anti-Xa Level (0.3-0.7) U.I./ml ABG pH (7.350-7.450) pH Units ABG pO2 (80.0-90.0) mm Hg ABG O2 Saturation (95.0-99.0) % ABG Base Excess (-2.0-3.0) mmol/L ABG Hemoglobin (12.0-16.0) gm/dl Oxyhemoglobin (95.0-99.0) % Carbon Dioxide 20 L (22-30) mmol/L BUN 84 H (7-17) mg/dL Creatinine 4.2 H (0.6-1.2) mg/dL Glucose 251 H (65-100) mg/dL POC Glucose 267 H (70-105) mg/dL Calcium 7.5 L (8.4-10.2) mg/dL Phosphorus 6.30 H (2.5-4.5) mg/dL Total Bilirubin 2.10 H (0.1-1.2) mg/dL AST 51 H (5-40) units/L Total Protein 5.9 L (6.3-8.2) g/dL Albumin 2.2 L (3.9-5) g/dL
--- NOTE | 2021-08-04 13:40 | Progress Note ---
Assessment and Plan EKG 08/03/2021 shows afib w/ RVR 151. No acute ischemic changes Echo reviewed - EF 50-55%, RV mildly hypokinetic, mild AR, no evidence of , mild TR, RVSP 48mmHg. Currently on amio and heparin drip. Informed by ICU ASSOCIATE PROFESSOR OF MANAGEMENT that plan for extubation and withdrawal of care was made Patient seen in conjunction with Dr. Marks who agrees with plan of care. Will sign off - Patient Problems (1) Acute hypoxemic respiratory failure Current Visit: Yes Status: Acute (2) Acute kidney injury (RHINA) with acute tubular necrosis (ATN) Current Visit: Yes Status: Acute (3) CHF (congestive heart failure) Current Visit: Yes Status: Acute Qualifiers: Heart failure chronicity: acute on chronic (4) NSTEMI (non-ST elevated myocardial infarction) Current Visit: Yes Status: Acute (5) Pneumonia Current Visit: Yes Status: Acute (6) Sepsis Current Visit: Yes Status: Acute (7) Suspected 2019 novel coronavirus infection Current Visit: Yes Status: Acute Subjective Date of service: 08/04/21 Principal diagnosis: COVID-19 PNA Interval history: Intubated and sedated afib w/RVR 110s Objective Vital Signs Temp Pulse Resp BP Pulse Ox 08/04/21 13:00 29 H 79/46 08/04/21 12:46 21 79/46 08/04/21 12:30 122 H 22 79/46 99 08/04/21 12:20 119 H 14 79/46 100 08/04/21 12:10 128 H 15 79/46 100 08/04/21 12:00 131 H 32 H 79/46 98 08/04/21 11:50 128 H 22 79/46 100 08/04/21 11:40 133 H 17 79/46 99 08/04/21 11:30 124 H 22 79/46 99 08/04/21 11:20 116 H 13 79/46 99 08/04/21 11:10 118 H 15 79/46 98 08/04/21 11:00 116 H 15 79/46 99 08/04/21 10:50 114 H 18 79/46 98 08/04/21 10:40 111 H 19 79/46 99 08/04/21 10:30 117 H 23 79/46 100 08/04/21 10:20 115 H 14 79/46 97 08/04/21 10:10 123 H 22 79/46 99 08/04/21 10:00 108 H 17 79/46 98 08/04/21 09:50 119 H 22 79/46 98 08/04/21 09:42 117 H 19 79/46 99 08/04/21 09:40 112 H 22 79/46 99 08/04/21 09:38 117 H 17 79/46 97 08/04/21 09:36 125 H 16 79/46 99 08/04/21 09:34 121 H 22 79/46 99 08/04/21 09:32 114 H 28 H 79/46 98 08/04/21 09:30 112 H 15 79/46 98 08/04/21 09:28 116 H 14 79/46 99 08/04/21 09:26 117 H 15 79/46 99 08/04/21 09:24 114 H 12 79/46 98 08/04/21 09:22 127 H 22 79/46 98 08/04/21 09:20 112 H 14 79/46 99 08/04/21 09:18 126 H 25 H 79/46 98 08/04/21 09:16 111 H 26 H 79/46 98 08/04/21 09:14 119 H 29 H 79/46 98 08/04/21 09:12 104 H 27 H 79/46 98 08/04/21 09:10 119 H 30 H 79/46 97 08/04/21 09:08 110 H 25 H 79/46 96 08/04/21 09:06 122 H 30 H 79/46 97 08/04/21 09:04 114 H 30 H 79/46 96 08/04/21 09:02 116 H 29 H 79/46 96 08/04/21 09:00 120 H 28 H 79/46 97 08/04/21 08:58 114 H 31 H 79/46 97 08/04/21 08:56 112 H 27 H 79/46 97 08/04/21 08:54 123 H 28 H 79/46 97 08/04/21 08:52 118 H 19 79/46 97 08/04/21 08:50 109 H 25 H 79/46 96 08/04/21 08:48 115 H 16 79/46 97 08/04/21 08:46 116 H 19 79/46 97 08/04/21 08:44 117 H 14 79/46 96 08/04/21 08:42 122 H 13 79/46 96 08/04/21 08:40 106 H 19 79/46 96 08/04/21 08:38 124 H 16 79/46 96 08/04/21 08:36 108 H 14 79/46 97 08/04/21 08:34 109 H 16 79/46 97 08/04/21 08:30 114 H 19 79/46 97 08/04/21 08:20 115 H 17 79/46 98 08/04/21 08:10 112 H 16 79/46 97 08/04/21 08:00 124 H 16 79/46 95 08/04/21 07:50 123 H 24 79/46 96 08/04/21 07:40 115 H 16 79/46 96 08/04/21 07:30 120 H 17 79/46 94 08/04/21 07:20 119 H 23 79/46 97 08/04/21 07:10 120 H 20 79/46 98 08/04/21 07:00 117 H 19 79/46 97 08/04/21 06:50 121 H 27 H 79/46 96 08/04/21 06:40 128 H 22 79/46 99 08/04/21 06:30 111 H 17 79/46 100 08/04/21 06:20 124 H 32 H 79/46 100 08/04/21 06:10 127 H 30 H 79/46 96 08/04/21 06:00 128 H 30 H 79/46 96 08/04/21 05:50 128 H 30 H 79/46 98 08/04/21 05:40 127 H 27 H 94 08/04/21 05:30 112 H 30 H 96 08/04/21 05:20 119 H 30 H 96 08/04/21 05:11 122 H 30 H 97 08/04/21 05:01 120 H 29 H 97 08/04/21 04:51 115 H 27 H 95 08/04/21 04:41 116 H 26 H 94 08/04/21 04:31 128 H 29 H 93 08/04/21 04:30 122 H 108/60 94 08/04/21 04:21 130 H 20 93 08/04/21 04:11 122 H 29 H 92 08/04/21 04:01 129 H 27 H 93 10/19/21 04:00 101.3 F H 32 H 88 08/04/21 03:51 122 H 25 H 92 08/04/21 03:41 117 H 30 H 94 08/04/21 03:31 132 H 23 94 08/04/21 03:21 119 H 25 H 96 08/04/21 03:11 120 H 23 95 08/04/21 03:01 122 H 23 95 08/04/21 02:51 121 H 28 H 96 08/04/21 02:41 133 H 23 93 08/04/21 02:31 129 H 19 95 08/04/21 02:21 127 H 21 95 08/04/21 02:11 127 H 30 H 93 08/04/21 02:01 126 H 30 H 97 08/04/21 01:51 122 H 30 H 97 08/04/21 01:41 129 H 26 H 97 08/04/21 01:31 131 H 30 H 96 08/04/21 01:21 129 H 29 H 98 08/04/21 01:11 125 H 26 H 97 08/04/21 01:01 128 H 30 H 98 08/04/21 00:51 119 H 24 98 08/04/21 00:41 123 H 22 98 08/04/21 00:31 119 H 30 H 97 08/04/21 00:21 129 H 24 96 08/04/21 00:11 126 H 30 H 97 08/04/21 00:01 129 H 30 H 98 08/04/21 00:00 100.9 F H 32 H 88 08/03/21 23:51 124 H 23 97 08/03/21 23:41 129 H 22 97 08/03/21 23:31 126 H 29 H 98 08/03/21 23:20 137 H 26 H 98 08/03/21 23:11 136 H 23 97 08/03/21 23:01 129 H 30 H 99 08/03/21 22:51 137 H 30 H 98 08/03/21 22:41 133 H 24 98 08/03/21 22:31 131 H 24 97 08/03/21 22:25 135 H 24 99 08/03/21 22:21 148 H 21 98 08/03/21 22:11 123 H 20 98 08/03/21 22:01 120 H 22 98 08/03/21 21:51 125 H 20 98 08/03/21 21:41 134 H 17 98 08/03/21 21:31 127 H 20 98 08/03/21 21:21 137 H 22 98 08/03/21 21:11 123 H 24 98 08/03/21 21:01 137 H 22 98 08/03/21 20:51 128 H 23 98 18 20:41 120 H 22 79/46 97 18 20:36 126 H 109/58 98 08/03/21 20:31 123 H 20 79/46 98 08/03/21 20:21 120 H 27 H 79/46 98 08/03/21 20:11 131 H 30 H 79/46 98 08/03/21 20:01 134 H 22 79/46 98 08/03/21 20:00 101.3 F H 32 H 88 08/03/21 19:51 124 H 20 79/46 96 08/03/21 19:41 127 H 24 79/46 97 08/03/21 19:31 129 H 23 79/46 97 08/03/21 19:21 137 H 19 79/46 97 08/03/21 19:11 132 H 21 79/46 98 08/03/21 19:01 133 H 23 79/46 97 08/03/21 19:00 32 H 88 08/03/21 18:51 141 H 22 79/46 96 08/03/21 18:41 135 H 27 H 79/46 96 08/03/21 18:31 131 H 23 79/46 95 08/03/21 18:21 126 H 19 79/46 96 08/03/21 18:11 123 H 26 H 79/46 93 08/03/21 18:01 144 H 22 79/46 94 18 17:51 139 H 34 H 79/46 93 18 17:41 142 H 18 79/46 91 18 17:31 142 H 21 73/48 94 18 17:21 123 H 32 H 73/48 93 18 17:11 135 H 28 H 73/48 93 18 17:01 136 H 45 H 73/48 93 18 16:51 134 H 30 H 73/48 92 16:41 142 H 26 H 73/48 92 08/03/21 16:31 151 H 15 73/48 91 08/03/21 16:21 140 H 15 73/48 91 08/03/21 16:11 135 H 15 73/48 92 08/03/21 16:01 132 H 12 73/48 92 08/03/21 16:00 101.3 F H 08/03/21 15:51 132 H 14 73/48 93 08/03/21 15:41 139 H 14 73/48 91 08/03/21 15:31 129 H 14 73/48 91 08/03/21 15:21 138 H 21 73/48 92 08/03/21 15:11 146 H 17 73/48 93 08/03/21 15:01 148 H 18 73/48 93 08/03/21 15:00 34 H 88 08/03/21 14:53 147 H 64/40 92 08/03/21 14:51 157 H 17 73/48 91 08/03/21 14:41 129 H 18 73/48 92 08/03/21 14:31 142 H 16 81/27 91 08/03/21 14:21 132 H 22 81/27 92 08/03/21 14:11 141 H 22 93 08/03/21 14:00 136 H 18 94/56 92 08/03/21 13:51 136 H 23 94/56 92 08/03/21 13:41 136 H 30 H 94/56 91 08/03/21 13:30 123 H 22 94/56 91 - Physical Examination General: Other (intubated and sedated) HEENT: Positive: PERRL Neck: Positive: trachea midline Cardiac: Positive: irregularly irregular Lungs: Positive: Ventilated Respirations Neuro: Positive: Other (unabel to asess) Abdomen: Positive: Soft Skin: Negative: Rash, Suspicious Lesions, Ulceration Extremities: Present: upper extr. pulses, lower extr. pulses - Labs and Meds Cardiac Enzymes 08/04/21 Range/Units 04:20 AST 51 H (5-40) units/L CBC 08/04/21 Range/Units 04:20 WBC 28.3 H (4.5-11.0) K/mm3 RBC 3.32 L (3.65-5.03) M/mm3 Hgb 10.0 L (10.1-14.3) gm/dl Hct 30.6 (30.3-42.9) % Plt Count 215 (140-440) K/mm3 Comprehensive Metabolic Panel 08/04/21 Range/Units 04:20 Sodium 141 (137-145) mmol/L Potassium 4.9 (3.6-5.0) mmol/L Chloride 103.6 (98-107) mmol/L Carbon Dioxide 20 L (22-30) mmol/L BUN 84 H (7-17) mg/dL Creatinine 4.2 H (0.6-1.2) mg/dL Glucose 251 H (65-100) mg/dL Calcium 7.5 L (8.4-10.2) mg/dL AST 51 H (5-40) units/L ALT 17 (7-56) units/L Alkaline Phosphatase 99 (35-129) units/L Total Protein 5.9 L (6.3-8.2) g/dL Albumin 2.2 L (3.9-5) g/dL - Imaging and Cardiology EKG: report reviewed, image reviewed Echo: report reviewed - EKG Sinus rhythms and dysrhythmias: sinus tachycardia Ventricular dysrhythmias: ventricular premature com Chamber hypertrophy or enlargement: left ventricular hypertro - Allied health notes Allied health notes reviewed: RT
--- NOTE | 2021-08-04 17:46 | Death Summary ---
<SHYANNE DASHChristofer - Last Filed: 08/04/21 18:03> Summary - Providers Date of service: 08/04/21 Consults: 07/31/21 11:49 Consult to Physician [CONS] Routine Comment: Consulting Provider: DELILAH MOODY Physician Instructions: Reason For Exam: pui/resp failure 07/31/21 11:50 Consult to Physician [CONS] Routine Comment: Consulting Provider: JOSE MIGUEL HENDERSON Physician Instructions: Reason For Exam: pui 07/31/21 14:16 Consult to Cardiology [CONS] Routine Consulting Provider: LOIDA BUCIO Reason For Exam: chf 07/31/21 15:23 Consult to Dietitian/Nutrition [CONS] Routine Physician Instructions: Reason For Exam: Reason for Consult: Evaluate nutritional intake 08/01/21 14:52 Consult to Physician [CONS] Routine Comment: Consulting Provider: DAVEY RESTREPO Physician Instructions: Reason For Exam: RHINA 08/02/21 07:53 Consult to Wound/ET Nurse [CONS] Routine Reason For Exam: wound eval 08/02/21 13:13 Consult to Dietitian/Nutrition [CONS] Routine Physician Instructions: Reason For Exam: TF management Reason for Consult: Write/Manage Tube Feeding Attending: NANNETTE LUJAN MD - summary Date of admission: 07/31/21 11:44 Date of : 08/04/21 Reason for admission: COVIS 19 PNA, Sepsis, s/p cardiac arrest, acute hypoxic respiratory failure Significant findings: This is a 65 years-old unvaccinated female with Obesity Hypoventilation Syndrome, DM2, RA, Paroxysmal Atrial Fib not taking therapeutic anticoagulation, HTN, CHF who presented to the ED due to hypoxia, SOB, and not feeling well for over week. Upon arrival to the ED, patient's SPO2 was in the low 80%, tachycardic, and tachypneic. She was initially placed on noninvasive positive pressure ventilation with no improvement, then later intubated due to acute hypoxemic respiratory failure. Additional workups showed bilateral pneumonia, NSTEMI, RHINA, and uncontrolled DM. Patient was admitted to the ICU for further management. On 08/01 patient was intubated and sedated on propofol and fentanyl, N nephrology consulted for acute kidney injury and insulin adjusted for hypoglycemia. On 08/02 patient remained on mechanical ventilation and sedated on propofol and fentanyl, COVID-19 PCR positive and tracheal aspirate grew MRSA and vancomycin was added, and the patient remained hypoglycemic and was started on insulin drip with nutrition consult for tube feeding management. Overnight on 08/03 patient had a cardiac arrest with ROSC and was maxed on Levophed, epinephrine, and Ashish-Synephrine and vasopressin. She was given multiple IV push bicarb for acidosis and eventually started on a bicarb drip and vent settings were increased for hypoxia. Patient also developed paroxysmal atrial fibrillation with RVR and started on amiodarone. Family was updated and patient family was set to visit on 08/04. Patient's renal function indicated need for HD however she remained unstable and decision was made to reevaluate tomorrow. Unfortunately the patient remained too unstable on 08/04 for HD. Family visited at bedside and the decision was made to change CODE STATUS to AND/DNR and ultimately family decided to de-escalate care. Patient's care was deescalated and she was terminally extubated at 1233. Patient was pronounced at [address] Heri Lujan. Acute metabolic encephalopathy s/p cardiac arrest 08/03 Afib with RVR NSTEMI Acute on Chronic CHF h/o paroxsymal afib Acute hypoxic respiratory failure ARDs COVID 19 pneumonia MRSA pneumonia Acute kidney injury 2/2 vasomotor nephropathy in setting of sever covid 19 infection and sepsis Anion gap metabolic acidosis Sepsis Leukocytosis Hyperglycemia non CCT: 30 mins - Final diagnosis (1) Sepsis Note: Final diagnosis: (2) Cardiac arrest Note: Final diagnosis: (3) RHINA (acute kidney injury) Note: Final diagnosis: (4) Acute hypoxemic respiratory failure Note: Final diagnosis: (5) Bilateral pneumonia Note: Final diagnosis: (6) Paroxysmal atrial fibrillation Note: Final diagnosis: (7) CHF (congestive heart failure) Qualifiers: Heart failure chronicity: acute on chronic Note: Final diagnosis: (8) NSTEMI (non-ST elevated myocardial infarction) Note: Final diagnosis: (9) Diabetes mellitus Note: Final diagnosis: (10) HTN (hypertension) Qualifiers: Hypertension type: primary hypertension Qualified Code(s): I10 - Essential (primary) hypertension Note: Final diagnosis: <NANNETTE LUJAN - Last Filed: 08/05/21 14:10> Summary - Providers Consults: 07/31/21 11:49 Consult to Physician [CONS] Routine Comment: Consulting Provider: DELILAH MOODY Physician Instructions: Reason For Exam: pui/resp failure 07/31/21 11:50 Consult to Physician [CONS] Routine Comment: Consulting Provider: JOSE MIGUEL HENDERSON Physician Instructions: Reason For Exam: pui 07/31/21 14:16 Consult to Cardiology [CONS] Routine Consulting Provider: LOIDA BUCIO Reason For Exam: chf 07/31/21 15:23 Consult to Dietitian/Nutrition [CONS] Routine Physician Instructions: Reason For Exam: Reason for Consult: Evaluate nutritional intake 08/01/21 14:52 Consult to Physician [CONS] Routine Comment: Consulting Provider: DAVEY RESTREPO Physician Instructions: Reason For Exam: RHINA 08/02/21 07:53 Consult to Wound/ET Nurse [CONS] Routine Reason For Exam: wound eval 08/02/21 13:13 Consult to Dietitian/Nutrition [CONS] Routine Physician Instructions: Reason For Exam: TF management Reason for Consult: Write/Manage Tube Feeding Attending: NANNETTE LUJAN MD - summary Date of admission: 07/31/21 11:44 Significant findings: I saw and evaluated the patient. Discussed with the nurse practitioner and agree with their findings and plan as documented in this note. - Final diagnosis (1) Acute hypoxemic respiratory failure Note: Final diagnosis: (2) Bilateral pneumonia Note: Final diagnosis: (3) COVID-19 Note: Final diagnosis:
--- NOTE | 2021-08-04 17:51 | Death Note ---
Note Date of : 08/04/21 Time of : 12:43 Time Pronounced: 13:06 - Preliminary Cause of (problem) (1) Acute hypoxemic respiratory failure Preliminary cause of Called to see patient for unresponsiveness. On exam the patient did not respond to verbal or physical stimuli. Absent heart and breath sounds.Absent peripheral pulses. Pupils are fixed and dilated. Patient pronounced at 1306. Next of kin notified. (2) Bilateral pneumonia Preliminary cause of (3) COVID-19 Preliminary cause of
--- NOTE | 2021-08-06 09:45 | Electrocardiograph Report ---
[facility] Test Date: 2021-07-31 Test Time: 09:26:48 Pat Name: MAIT CHOE Department: Room: A259 Gender: F Board Turner: SUSHILA : 1955 Requested By: CATRACHO BONDS Order Number: [id number] Reading MD: Keagan Villalta Measurements Intervals [place] Rate: 108 P: 34 PA: 77 QRS: -28 QRSD: 82 T: 201 QT: 258 QTc: 347 Interpretive Statements Very poor quality ECG precludes optimal interpretation No previous ECG available for comparison Electronically Signed On 08-06-2021 9:45:33 EDT by Keagan Villalta
--- NOTE | 2021-08-06 09:49 | Electrocardiograph Report ---
[facility] Test Date: 2021-07-31 Test Time: 12:39:08 Pat Name: MATI CHOE Department: Room: A259 Gender: F Digital Media Analyst: ED NURSE : 1955 Requested By: TALIA MCGINNIS Order Number: [id number] Reading MD: Keagan Villalta Measurements Intervals [place] Rate: 102 P: 40 ME: 139 QRS: -8 QRSD: 87 T: 131 QT: 412 QTc: 537 Interpretive Statements Poor quality ECG Sinus tachycardia Compared to ECG 07/31/2021 09:26:48 Prior ECG is uninterpretable due to poor study quality Electronically Signed On 08-06-2021 9:49:27 EDT by Keagan Villalta
--- NOTE | 2021-08-06 09:50 | Electrocardiograph Report ---
[facility] Test Date: 2021-07-31 Test Time: 16:16:12 Pat Name: MATI CHOE Department: Room: A259 Gender: F Electrician Apprentice: ED NURSE : 1955 Requested By: TALIA MCGINNIS Order Number: [id number] Reading MD: Keagan Villalta Measurements Intervals [place] Rate: 93 P: 9 NE: 124 QRS: -9 QRSD: 89 T: 53 QT: 381 QTc: 473 Interpretive Statements Sinus rhythm Low voltage, precordial leads Compared to ECG 07/31/2021 12:39:08 No significant change Electronically Signed On 08-06-2021 9:50:26 EDT by Keagan Villalta
--- NOTE | 2021-08-06 10:00 | Electrocardiograph Report ---
[facility] Test Date: 2021-08-01 Test Time: 13:35:58 Pat Name: MATI CHOE Department: Room: A259 1 Gender: F Pumper Gauger: JOANNE : 1955 Requested By: DELILAH MOODY Order Number: [id number] Reading MD: Keagan Villalta Measurements Intervals [place] Rate: 70 P: 60 LA: 129 QRS: -3 QRSD: 95 T: 12 QT: 436 QTc: 470 Interpretive Statements Sinus rhythm Low voltage, precordial leads Compared to ECG 07/31/2021 16:16:12 No significant changes Electronically Signed On 08-06-2021 9:59:53 EDT by Keagan Villalta
== END 2021-08-04 14:00 | DRG 871 ==
LOC: ED 09:05 → 3A 11:44 → CC1 14:18
PROVIDERS: ADMIT Internal Medicine; ATTEND Internal Medicine
PROC: 5A1945Z Respiratory Ventilation, 24-96 Consecutive Hours (ICD-10-PCS; principal; 2021-07-31)
PROC: 0BH17EZ Insertion of Endotracheal Airway into Trachea, Via Natural or Artificial Opening (ICD-10-PCS; 2021-07-31)
PROC: 05HM33Z Insertion of Infusion Device into Right Internal Jugular Vein, Percutaneous Approach (ICD-10-PCS; 2021-07-31)
PROC: B543ZZA Ultrasonography of Right Jugular Veins, Guidance (ICD-10-PCS; 2021-07-31)
PROC: 4A033R1 Measurement of Arterial Saturation, Peripheral, Percutaneous Approach (ICD-10-PCS; 2021-07-31)
PROC: 03HC33Z Insertion of Infusion Device into Left Radial Artery, Percutaneous Approach (ICD-10-PCS; 2021-08-02)
PROC: B34HZZZ Ultrasonography of Right Upper Extremity Arteries (ICD-10-PCS; 2021-08-02)
PROC: XW033H5 Introduction of Tocilizumab into Peripheral Vein, Percutaneous Approach, New Technology Group 5 (ICD-10-PCS; 2021-08-02)
PROC: 5A12012 Performance of Cardiac Output, Single, Manual (ICD-10-PCS; 2021-08-03)
DX: A41.9 Sepsis, unspecified organism (principal); I21.4 Non-ST elevation (NSTEMI) myocardial infarction; J96.01 Acute respiratory failure with hypoxia; N17.0 Acute kidney failure with tubular necrosis; I50.23 Acute on chronic systolic (congestive) heart failure; U07.1 COVID-19; J12.82 Pneumonia due to coronavirus disease 2019; R65.21 Severe sepsis with septic shock; J15.212 Pneumonia due to Methicillin resistant Staphylococcus aureus; G93.41 Metabolic encephalopathy; E66.2 Morbid (severe) obesity with alveolar hypoventilation; Z68.41 Body mass index [BMI] 40.0-44.9, adult; I48.0 Paroxysmal atrial fibrillation; Z79.01 Long term (current) use of anticoagulants; I11.0 Hypertensive heart disease with heart failure; M19.90 Unspecified osteoarthritis, unspecified site; Z90.710 Acquired absence of both cervix and uterus; Z90.49 Acquired absence of other specified parts of digestive tract; E11.65 Type 2 diabetes mellitus with hyperglycemia; F41.9 Anxiety disorder, unspecified; I46.9 Cardiac arrest, cause unspecified; E66.9 Obesity, unspecified; Z66 Do not resuscitate
CPT/HCPCS: 36415; 36600; 71045; 71250; 76770; 80053; 80061; 80202; 81001; 82140; 82570; 82728; 82803; 82805; 82962; 83615; 83735; 83880; 84100; 84145; 84156; 84300; 84484; 85007; 85014; 85018; 85025; 85027; 85049; 85379; 85520; 85610; 85730; 86140; 86850; 86900; 86901; 87040; 87070; 87076; 87086; 87186; 87205; 92950; 93005; 93306; 94002; 94003; G0378; J0153; J0171; J0282; J0330; J0456; J1100; J1170; J1644; J1815; J1956; J2250; J2270; J2370; J2704; J2920; J3010; J3370; J7030; J7040; J7050; J7060; J7120; P9047; U0003